=== PATIENT | female | born 1975 | race Hispanic/Latino ===

== ENCOUNTER → 2019-04-06 | Day surgery (SDC) | payer MEDICARE ==
[2019-04-04 13:16] LABS: BASOPHILS % 0.4 % (0.0-1.0); EOSINOPHILS # (AUTO) 0.1 (0.0-0.4); EOSINOPHILS % 1.4 % (0.0-6.0); HEMATOCRIT 38.5 % (34.2-44.1); HEMOGLOBIN 12.6 g/dL (12.0-16.0); LYMPHOCYTES # (AUTO) 2.6 (1.0-3.2); MEAN CORPUSCULAR HEMOGLOBIN 28.1 pg (28-32); MEAN CORPUSCULAR HGB CONC 32.7 g/dL (31-35); MEAN CORPUSCULAR VOLUME 85.9 fL (81-99); MONOCYTES # (AUTO) 0.5 (0.2-0.8); MONOCYTES % 5.5 % (4.4-11.3); NEUTROPHILS # (AUTO) 5.3 (2.1-6.9); NEUTROPHILS % 62.3 % (38.7-80.0); PLATELET COUNT 234 x10e3/uL (140-360); RED BLOOD COUNT 4.48 x10e6/uL (3.6-5.1); RED CELL DISTRIBUTION WIDTH 15.2 % (11.7-14.4)
[2019-04-04 13:37] LABS: BLOOD UREA NITROGEN 9 mg/dL (7-26); BUN/CREATININE RATIO 13 (6-25); CALCIUM 8.8 mg/dL (8.4-10.2); CARBON DIOXIDE 27 mmol/L (22-29); CHLORIDE 106 mmol/L (98-107); CREATININE, SERUM 0.67 mg/dL (0.57-1.11); EST GLOMERULAR FILTRATION RATE > 60 ML/MIN (60-); GLUCOSE 86 mg/dL (74-118); SODIUM 139 mmol/L (136-145)
[~2019-04-06] MED LIST: BUPIVACAINE 0.25%/EPI 30ML SDV INJ ONE; CLONAZEPAM0.5 MG PO; DEXAMETHASONE SOD PHOS INJ 4 MG/ML VIAL ONE; FENTANYL CITRATE/PF 100MCG/2 ML INJ ONE; HYDROMORPHONE 2MG/ML 2 MG/ML ML ONE; LATUDA40 MG PO; LIDOCAINE HCL 1% LOCAL INJ 20 ML VIAL ONE; LIDOCAINE HCL 2% LOCAL INJ 5 ML SDV VIAL INJ ONE; MIDAZOLAM HCL 2 MG/2 ML VIAL ONE; ONDANSETRON HCL INJ 2MG/ML 2ML 2 MG/ML VIAL ONE; PROPOFOL IV EMULSION 10 MG/ML 20 ML VIAL ONE; QUETIAPINE FUM100 MG PO; SEVOFLURANE INHAL SOLN 250 ML PEN BTL ONE
--- OUTSIDE RECORDS SUMMARY | 2019-04-06 08:59 | XMS REPORT | Summary of Care ---
Author Author [facility] Organization [facility] Address Unknown Phone Unavailable Encounter ADEBAYO Spencer(FLORECITA) [id number] Date(s): 12/23/18 - 12/24/18 [facility] [address] [place] [address]- Discharge Disposition: Other Healthcare Facility Attending Physician: Keith Andre DO Vital Signs 1 2 3 Most recent to oldest [Reference Range]: 170.18 cm (12/23/18 11:41 AM) Height 98.5 DegF (12/24/18 2:40 PM) 98.4 DegF (12/24/18 10:35 AM) 98.4 DegF (12/24/18 6:25 AM) Temperature Oral [96.4-99.1 DegF] 100/55 mmHg (12/24/18 4:25 PM) 112/71 mmHg (12/24/18 2:40 PM) 109/67 mmHg (12/24/18 10:35 AM) Blood Pressure [90-140/60-90 mmHg] 18 BRMIN (12/24/18 4:25 PM) 20 BRMIN (12/24/18 2:40 PM) 18 BRMIN (12/24/18 10:35 AM) Respiratory Rate [14-20 BRMIN] 100 bpm (12/24/18 4:25 PM) 97 bpm (12/24/18 2:40 PM) 87 bpm (12/24/18 12:48 AM) Peripheral Pulse Rate [60-100 bpm] 81.818 kg (12/23/18 11:41 AM) Weight 28.25 m2 (12/23/18 11:41 AM) Body Mass Index Problem List Condition Effective Dates Status Health Status Informant Back pain(Confirmed) Active Drug Active abuse(Confirmed) Weakness(Confirmed) Active Allergies, Adverse Reactions, Alerts Substance Reaction Severity Status penicillins Active Ultram Active Medications acetaminophen-hydrocodone 325 mg-5 mg oral tablet 1 tab, Route: PO, Drug Form: TAB, Dosing Weight 81.818, kg, ONCE, STAT, Start da te: 12/23/18 17:55:00 ACCOUNT MANAGEMENT SPECIALIST, Stop date: 12/23/18 17:55:00 ACCOUNT MANAGEMENT SPECIALIST Notes: (Same as: Lefor 325/5) Do not exceed 4gm/day of acetaminophen. Start Date: 12/23/18 Stop Date: 12/23/18 Status: Completed Al hydroxide/Mg hydroxide/simethicone 30 mL, Route: PO, Drug Form: SUSP, ONCE, Start date: 12/23/18 18:08:00 ACCOUNT MANAGEMENT SPECIALIST, Stop date: 12/23/18 18:08:00 ACCOUNT MANAGEMENT SPECIALIST Notes: (aluminum hydroxide-magnesium hyd-simethicone 444-774-37fm/5ml 30 ml ud S US) Start Date: 12/23/18 Stop Date: 12/23/18 Status: Completed aspirin 325 mg, 1 tab, Route: PO, Drug form: TAB, ONCE, Dosing Weight 81.818, kg, Priori ty: STAT, Start date: 12/23/18 18:03:00 ACCOUNT MANAGEMENT SPECIALIST, Stop date: 12/23/18 18:03:00 ACCOUNT MANAGEMENT SPECIALIST Notes: Take with food. Start Date: 12/23/18 Stop Date: 12/23/18 Status: Completed famotidine 20 mg, 2 mL, Route: IVP, Drug form: INJ, ONCE, Dosing Weight 81.818, kg, Priorit y: STAT, Start date: 12/23/18 18:03:00 ACCOUNT MANAGEMENT SPECIALIST, Stop date: 12/23/18 18:03:00 ACCOUNT MANAGEMENT SPECIALIST Notes: (Same as: Pepcid)Can be dilute in 5-10cc NS IVP: Slow IV push over at le ast 2 minutes. Start Date: 12/23/18 Stop Date: 12/23/18 Status: Completed GI cocktail (aluminum hydroxide/magnesium hydroxide/lidocaine/simethicone) 30 mL, Route: PO, Dosing Weight 81.818, kg, ONCE, STAT, Start date: 12/23/18 18: 03:00 ACCOUNT MANAGEMENT SPECIALIST, Stop date: 12/23/18 18:03:00 ACCOUNT MANAGEMENT SPECIALIST Start Date: 12/23/18 Stop Date: 12/23/18 Status: Discontinued LORazepam 1 mg, 0.5 mL, Route: IVP, Drug form: INJ, ONCE, Dosing Weight 81.818, kg, Priori ty: STAT, Start date: 12/24/18 12:31:00 CDT, Stop date: 12/24/18 12:31:00 CDT Notes: (Same as: Ativan) Start Date: 12/24/18 Stop Date: 12/24/18 Status: Completed ondansetron 4 mg, 2 mL, Route: IVP, Drug form: INJ, ONCE, Dosing Weight 81.818, kg, Priority : STAT, Start date: 12/23/18 18:03:00 ACCOUNT MANAGEMENT SPECIALIST, Stop date: 12/23/18 18:03:00 ACCOUNT MANAGEMENT SPECIALIST Notes: (Same as: Sangeetha) MEDICATION WASTE Product Size: 4 mgProduct Was maryam: ___ mg Start Date: 12/23/18 Stop Date: 12/23/18 Status: Completed Results ELECTROLYTES Most recent to 1 oldest [Reference Range]: Sodium Lvl [135-145 140 mEq/L mEq/L] (12/23/18 1:33 PM) Potassium Lvl 4.2 mEq/L [3.5-5.1 mEq/L] (12/23/18 1:33 PM) Chloride Lvl [95-109 108 mEq/L mEq/L] (12/23/18 1:33 PM) CO2 [24-32 mEq/L] 30 mEq/L (12/23/18 1:33 PM) AGAP [10.0-20.0 6.2 mEq/L mEq/L] *LOW* (12/23/18 1:33 PM) CHEM PANEL Most recent to 1 oldest [Reference Range]: Creatinine Lvl 0.70 mg/dL [0.50-1.40 mg/dL] (12/23/18 1:33 PM) eGFR 106 mL/min/1.73m2 1 *NA* (12/23/18 1:33 PM) BUN [7-22 mg/dL] 12 mg/dL (12/23/18 1:33 PM) B/C Ratio [6-25] 17 (12/23/18 1:33 PM) Glucose Lvl [70-99 83 mg/dL mg/dL] (12/23/18 1:33 PM) Total Protein 6.6 g/dL [6.4-8.4 g/dL] (12/23/18 1:33 PM) Albumin Lvl [3.5-5.0 3.3 g/dL g/dL] *LOW* (12/23/18 1:33 PM) Globulin [2.7-4.2 3.3 g/dL g/dL] (12/23/18 1:33 PM) A/G Ratio [0.7-1.6] 1.0 (12/23/18 1:33 PM) Calcium Lvl 8.4 mg/dL [8.5-10.5 mg/dL] *LOW* (12/23/18 1:33 PM) ALT [0-65 unit/L] 21 unit/L (12/23/18 1:33 PM) AST [0-37 unit/L] 14 unit/L (12/23/18 1:33 PM) Alk Phos [39-136 65 unit/L unit/L] (12/23/18 1:33 PM) Bili Total [0.2-1.3 0.2 mg/dL mg/dL] (12/23/18 1:33 PM) 1Result Comment: The eGFR is calculated using the CKD-EPI formula. In most young, healthy individuals the eGFR will be >90 mL/min/1.73m2. The eGFR declines with age. An eGFR of 60-89 may be normal in some populations, particularly the elderly, for whom the CKD-EPI formula has not been extensively validated. Use of the eGFR is not recommended in the following populations: Individuals with unstable creatinine concentrations, including patients and those with serious co-morbid conditions. Patients with extremes in muscle mass or diet. The data above are obtained from the National Kidney Disease Education Program ( NKDEP) which additionally recommends that when the eGFR is used in patients with extremes of body mass index for purposes of drug dosing, the eGFR should be mul tiplied by the estimated BMI. CARDIAC ENZYMES Most recent to 1 oldest [Reference Range]: Troponin-I <0.02 ng/mL [0.00-0.40 ng/mL] (12/23/18 1:33 PM) DRUG SCREEN Most recent to 1 oldest [Reference Range]: U Amph Scr Positive [Negative] *ABN* (12/23/18 1:33 PM) U Shannon Scr Negative [Negative] *NA* (12/23/18 1:33 PM) U Benzodiaz Scr Negative [Negative] *NA* (12/23/18 1:33 PM) U Cannab Scr Negative [Negative] *NA* (12/23/18 1:33 PM) U Cocaine Scr Negative [Negative] *NA* (12/23/18 1:33 PM) U Opiate Scr Negative [Negative] *NA* (12/23/18 1:33 PM) U Phencyclidine Scr Negative [Negative] *NA* (12/23/18 1:33 PM) UDS Note See Note (12/23/18 1:33 PM) TOXICOLOGY Most recent to 1 oldest [Reference Range]: Acetaminoph Lvl <2 [10-20] (12/23/18 7:36 PM) Salicylate Lvl <1.7 mg/dL [0.0-30.0 mg/dL] (12/23/18 7:36 PM) Etoh (%) <.003 % *NA* (12/23/18 7:36 PM) Ethanol Lvl <3 mg/dL *NA* (12/23/18 7:36 PM) URINE CHEM Most recent to 1 oldest [Reference Range]: U Preg [Negative] Negative (12/23/18 1:33 PM) URINE AND STOOL Most recent to 1 oldest [Reference Range]: UA Turbidity [Clear] Slight *ABN* (12/23/18 1:33 PM) UA Color Juanita *NA* (12/23/18 1:33 PM) UA pH [5.0-8.0] 6.0 (12/23/18 1:33 PM) UA Spec Grav 1.014 [<=1.030] (12/23/18 1:33 PM) UA Glucose Negative [Negative] *NA* (12/23/18 1:33 PM) UA Blood [Negative] Negative (12/23/18 1:33 PM) UA Ketones Negative [Negative] *NA* (12/23/18 1:33 PM) UA Protein Negative [Negative] (12/23/18 1:33 PM) UA Urobilinogen <=1.0 mg/dL [0.1-1.0 mg/dL] *NA* (12/23/18 1:33 PM) UA Bili [Negative] Negative *NA* (12/23/18 1:33 PM) UA Leuk Est Large [Negative] *ABN* (12/23/18 1:33 PM) UA Nitrite Negative [Negative] (12/23/18 1:33 PM) UA WBC [0-5 /HPF] 2 /HPF (12/23/18 1:33 PM) UA RBC [0-2 /HPF] 2 /HPF (12/23/18 1:33 PM) UA Bacteria [None Occasional /HPF Seen /HPF] *NA* (12/23/18 1:33 PM) UA Sq Epi [Few /LPF] Moderate /LPF *ABN* (12/23/18 1:33 PM) UA Hyal Cast [0-2 1 /LPF /LPF] (12/23/18 1:33 PM) UA Mucus [None Seen Few /LPF /LPF] *NA* (12/23/18 1:33 PM) HEMATOLOGY Most recent to 1 oldest [Reference Range]: WBC [3.7-10.4 K/CMM] 6.4 K/CMM (12/23/18 1:33 PM) RBC [4.20-5.40 4.34 M/CMM M/CMM] (12/23/18 1:33 PM) Hgb [12.0-16.0 g/dL] 11.6 g/dL *LOW* (12/23/18 1:33 PM) Hct [36.0-48.0 %] 35.8 % *LOW* (12/23/18 1:33 PM) MCV [80.0-98.0 fL] 82.5 fL (12/23/18 1:33 PM) MCH [27.0-31.0 pg] 26.7 pg *LOW* (12/23/18 1:33 PM) MCHC [32.0-36.0 32.4 g/dL g/dL] (12/23/18 1:33 PM) RDW [11.5-14.5 %] 15.3 % *HI* (12/23/18 1:33 PM) MPV [7.4-10.4 fL] 9.3 fL (12/23/18 1:33 PM) Platelet [133-450 331 K/CMM K/CMM] (12/23/18 1:33 PM) Segs [45.0-75.0 %] 62.3 % (12/23/18 1:33 PM) Lymphocytes 31.8 % [20.0-40.0 %] (12/23/18 1:33 PM) Monocytes [2.0-12.0 4.1 % %] (12/23/18 1:33 PM) Eosinophils [0.0-4.0 1.3 % %] (12/23/18 1:33 PM) Basophils [0.0-1.0 0.5 % %] (12/23/18 1:33 PM) Neutrophils # 4.0 K/CMM [1.5-8.1 K/CMM] (12/23/18 1:33 PM) Lymphocytes # 2.0 K/CMM [1.0-5.5 K/CMM] (12/23/18 1:33 PM) Monocytes # [0.0-0.8 0.3 K/CMM K/CMM] (12/23/18 1:33 PM) Eosinophils # 0.1 K/CMM [0.0-0.5 K/CMM] (12/23/18 1:33 PM) Immunizations No data available for this section Procedures No data available for this section Social History Social History Type Response Smoking Status Unknown if ever smoked; Previous treatment: None; Exposure to Tobacco Smoke None; Cigarette Smoking Last 365 Days No; Reg Smoking Cessation Counseling No entered on: 12/23/18 Assessment and Plan No data available for this section
--- OUTSIDE RECORDS SUMMARY | 2019-04-06 08:59 | XMS REPORT | CCD ---
Author Author Auto Generated Organization [facility] Address Unknown Phone Unavailable Care Team Providers Care Stock Car Driver Name Role Phone Orly Schroeder CP Brandon Monroe CP Unavailable Lacy, Enedina CP Unavailable Roxanne Olivarez CP Unavailable MarkoSuman condon CP Unavailable Violet Garber CP Unavailable Chevy Bullard CP Unavailable Samson Feldman CP Unavailable Logan Millan CP [phone] Samantha Mac CP [phone] Evan Jackson CP [phone] Salima Melchor CP Unavailable PCP, Pt doesnt Remember Remember CP Unavailable Karly Rossi CP Unavailable Bakari Garcia CP Dev Girard CP Unavailable Ericka Smith CP Unavailable Allergies, Adverse Reactions, Alerts Substance Reaction Status NKDA Ultram?? Canceled penicillins ?? Active Ultram ?? Active Problem List Condition Effective Dates Status Back pain ?? Active Drug abuse ?? Active Weakness ?? Active Vital Signs Most recent to oldest [Reference Range]: 1 2 Height 167.64 cm (06/20/2011 00:12:00) ? Temperature Oral [96.4-99.1 DegF] 98.3 DegF (06/20/2011 02:27:00) ?? 98.4 DegF (06/20/2011 00:12:00) ?? Systolic Blood Pressure [90-140 mmHg] 131 mmHg (06/20/2011 02:27:00) ?? 128 mmHg (06/20/2011 00:12:00) ?? Diastolic Blood Pressure [60-90 mmHg] 78 mmHg (06/20/2011 02:27:00) ?? 88 mmHg (06/20/2011 00:12:00) ?? Respiratory Rate [14-20 BRMIN] 16 BRMIN (06/20/2011 02:27:00) ?? 18 BRMIN (06/20/2011 00:12:00) ?? Peripheral Pulse Rate [60-100 bpm] 81 bpm (06/20/2011 02:27:00) ?? 84 bpm (06/20/2011 00:12:00) ?? Weight 63.636 kg (06/20/2011 00:12:00) ?
--- OUTSIDE RECORDS SUMMARY | 2019-04-06 08:59 | XMS REPORT | CCD ---
Author Author Auto Generated Organization [facility] Address Unknown Phone Unavailable Care Team Providers Care Electric Sign Wirer Name Role Phone Orly Schroeder CP Brandon Monroe CP Unavailable Lacy, Enedina CP Unavailable Roxanne Olivarez CP Unavailable MarkoSuman condon CP Unavailable Violet Garber CP Unavailable Chevy Bullard CP Unavailable Samson Feldman CP Unavailable Logan Millan CP [phone] Samantha Mac CP [phone] Evan Jackson CP [phone] Salima Melchor CP Unavailable PCP, Pt doesnt [...]
--- OUTSIDE RECORDS SUMMARY | 2019-04-06 08:59 | XMS REPORT | CCD ---
Author Author Auto Generated Organization [facility] Address Unknown Phone Unavailable Care Team Providers Care Netsuite Developer Name Role Phone John Louie CP [phone] Orly Schroeder CP Dayron Brunner CP Unavailable Brandon Monroe CP Unavailable Lacy, Enedina CP Unavailable Dev Caballero CP [phone] Charly Olvera CP Unavailable GutierrezEvaristo CP [phone] Sharon Cooper CP Unavailable Roxanne Olivarez CP Unavailable MarkoSuman CP Unavailable Violet Garber CP Unavailable BullardChevy bundy CP Unavailable GutierrezMarco CP Unavailable SYSTEM, SYSTEM CP Unavailable Samantha Mac CP [phone] Zach Luevano CP Unavailable Arpit Fortune CP Unavailable MelchorSalima CP Unavailable PCP, Patient Refused CP Unavailable Maureen Gutierrez CP Unavailable Karly Rossi CP Unavailable Bakari Garcia CP Dev Girard CP Unavailable Margot Tobias CP Unavailable Fredis Gutierrez CP Tierney Metzger CP Unavailable Ericka Smith CP Unavailable Cesar Christina CP Unavailable Allergies, Adverse Reactions, Alerts Substance Reaction Status NKDA Ultram?? Canceled penicillins ?? Active Ultram ?? Active Problem List Condition Effective Dates Status Back pain ?? Active Drug abuse ?? Active Weakness ?? Active Medications Medication Instructions Start Date End Date Status aspirin 325 mg 1 tab, PO, Daily, 90 tab, 06/17/2011 ?? Ordered tablet Substitution Allowed, TAB Saline Flush 0.9% 5 ml, Route: IVP, Drug Form: INJ, 06/19/2011 06/20/2011 Discontinued PRN, PRN Line Flush, Start date: 06/19/11 22:28:00, Duration: 30 day, Stop date: 07/19/11 22:27:00 ibuprofen 800 mg, Route: PO, Drug form: TAB, 06/19/2011 06/19/2011 Completed ONCE, Priority: STAT, Start date: 06/19/11 22:42:00, Stop date: 06/19/11 22:42:00 Hildamarcet oral 1 tab, PO, Q4H, PRN, for pain, 06/19/2011 ?? Ordered tablet Substitution Allowed, Maintenance, TAB Vital Signs Most recent to oldest [Reference Range]: 1 2 Height 167.64 cm (06/19/2011 21:26:00) ? Temperature Oral [96.4-99.1 DegF] 97.8 DegF (06/19/2011 21:26:00) ? Systolic Blood Pressure [90-140 mmHg] 138 mmHg (06/19/2011 22:52:00) ?? 124 mmHg (06/19/2011 21:26:00) ?? Diastolic Blood Pressure [60-90 mmHg] 89 mmHg (06/19/2011 22:52:00) ?? 92 mmHg *HI* (06/19/2011 21:26:00) ?? Respiratory Rate [14-20 BRMIN] 16 BRMIN (06/19/2011 22:52:00) ?? 18 BRMIN (06/19/2011 21:26:00) ?? Peripheral Pulse Rate [60-100 bpm] 85 bpm (06/19/2011 22:52:00) ?? 87 bpm (06/19/2011 21:26:00) ?? Weight 68.182 kg (06/19/2011 21:26:00) ? Results URINALYSIS Most recent to oldest [Reference Range]: 1 UA Turbidity [>Clear] Clear (06/19/2011 22:09:00) ?? UA Color [>Yellow] Yellow *NA* (06/19/2011 22:09:00) ?? UA pH [5.0-8.0] 6.0 (06/19/2011 22:09:00) ?? UA Spec Grav [<<=1.030] 1.010 (06/19/2011 22:09:00) ?? UA Glucose [>Negative] Negative (06/19/2011 22:09:00) ?? UA Blood [>Negative] Trace *ABN* (06/19/2011 22:09:00) ?? UA Ketones [>Negative] Negative *NA* (06/19/2011 22:09:00) ?? UA Protein [>Negative] Negative (06/19/2011 22:09:00) ?? UA Urobilinogen [0.1-1.0 EU/dL] 0.2 EU/dL (06/19/2011 22:09:00) ?? UA Bili [>Negative] Negative *NA* (06/19/2011 22:09:00) ?? UA Leuk Est [>Negative] Small *ABN* (06/19/2011 22:09:00) ?? UA Nitrite [>Negative] Negative (06/19/2011 22:09:00) ?? UA WBC [>None Seen /HPF] 3-5 /HPF (06/19/2011 22:09:00) ?? UA RBC [>0-2 /HPF] 3-5 /HPF *ABN* (06/19/2011 22:09:00) ?? UA Bacteria [>None Seen /HPF] Few /HPF (06/19/2011 22:09:00) ?? UA Sq Epi [>Few /LPF] Few /LPF (06/19/2011 22:09:00) ?? Micro? Performed (06/19/2011 22:09:00) ?? CHEMISTRY Most recent to oldest [Reference Range]: 1 Sodium Lvl [135-145 mEq/L] 139 mEq/L (06/19/2011 22:09:00) ?? Potassium Lvl [3.5-5.1 mEq/L] 3.7 mEq/L (06/19/2011 22:09:00) ?? Chloride Lvl [95-109 mEq/L] 102 mEq/L (06/19/2011 22:09:00) ?? CO2 [24-32 mEq/L] 28 mEq/L (06/19/2011 22:09:00) ?? AGAP [10.0-20.0 mEq/L] 12.7 mEq/L (06/19/2011 22:09:) ?? Creatinine Lvl [0.5-1.4 mg/dL] 0.7 mg/dL (06/19/2011 22:09:00) ?? BUN [7-22 mg/dL] 9 mg/dL (06/19/2011 22:09:00) ?? B/C Ratio [6-25] 13 (06/19/2011 22:09:00) ?? Glucose Lvl 77 mg/dL 1 *NA* (06/19/2011:09:00) ?? Total Protein [6.4-8.4 g/dL] 6.9 g/dL (06/19/2011 22:09:00) ?? Albumin Lvl [3.5-5.0 g/dL] 4.0 g/dL (06/19/2011:09:00) ?? Globulin [2.0-4.0 g/dL] 2.9 g/dL (06/19/2011:09:00) ?? A/G Ratio [0.7-1.6] 1.4 (06/19/2011 22:09:00) ?? Calcium Lvl [8.5-10.5 mg/dL] 8.8 mg/dL (06/19/2011 22:09:00) ?? ALT [0-65 U/L] 23 U/L (06/19/2011:09:00) ?? AST [0-37 U/L] 14 U/L (06/19/2011 22:09:00) ?? Alk Phos [39-136 U/L] 57 U/L (06/19/2011:09:00) ?? Bili Total [0.2-1.3 mg/dL] 0.2 mg/dL (06/19/2011 22:09:00) ?? Total CK [12-191 U/L] 81 U/L (06/19/2011:09:00) ?? CK MB [0.5-3.6 ng/mL] <0.5 ng/mL (06/19/2011 22:09:00) ?? CK MB Index [0.0-2.5] <0.6 (06/19/2011:09:00) ?? Troponin-I [0.00-0.40 ng/mL] <0.02 ng/mL (06/19/2011 22:09:00) ?? U Amph Scr [>Negative] Negative *NA* (06/19/2011 22:09:00) ?? U Shannon Scr [>Negative] Negative *NA* (06/19/2011 22:09:00) ?? U Benzodia Scr [>Negative] Negative *NA* (06/19/2011 22:09:00) ?? U Cocaine Scr [>Negative] Negative *NA* (06/19/2011 22:09:00) ?? U Opiate Scr [>Negative] Positive *ABN* (06/19/2011 22:09:00) ?? U Phencyc Scr [>Negative] Negative *NA* (06/19/2011 22:09:00) ?? U Cannab Scr [>Negative] Positive *ABN* (06/19/2011 22:09:00) ?? UDS Note See Note 2 (06/19/2011 22:09:00) ?? U Preg [>Negative] Negative (06/19/2011 22:09:00) ?? 1Interpretive Data: Reference Ranges : 0 - 7 days : 41 - 90 mg/dL7 days - 150 yrs : 70 - 99 mg/dL (fasting), based on the clinical recommendations of the [place] [employer]. 2Interpretive Data: Drugs reported as positive have not been confirmed by a second method and should be used for medical purposes only. To orderconfirmation, contact laboratory. note: Below are cut-off concentrations for all urine drugs of abuse performed in the laboratory. Some drugs listed in the table may not be included in this panel.Description Cut-off concentration Amphetamine 1000 ng/mLBarbiturates 200 ng/mLBenzodiazepines 300 ng/mLCocaine metabolites 300 ng/mLOpiates 300 ng/mLPhencyclidine 25 ng/mLPropoxyphene 300 ng/mLMarijuana metabolites 50 ng/mLMethadone 300 ng/mLUrine alcohol 20 mg/dL HEMATOLOGY Most recent to oldest [Reference Range]: 1 WBC [3.7-10.4 K/CMM] 6.0 K/CMM (06/19/2011 22:09:00) ?? RBC [4.20-5.40 M/CMM] 3.62 M/CMM *LOW* (06/19/2011 22:09:00) ?? Hgb [12.0-16.0 g/dL] 11.2 g/dL *LOW* (06/19/2011 22:09:00) ?? Hct [36.0-48.0 %] 32.8 % *LOW* (06/19/2011 22:09:00) ?? MCV [81.0-99.0 fL] 90.7 fL (06/19/2011:09:00) ?? MCH [27.0-31.0 pg] 31.0 pg (06/19/2011 22:09:00) ?? MCHC [32.0-36.0 g/dL] 34.2 g/dL (06/19/2011:09:00) ?? RDW [11.5-14.5 %] 14.4 % (06/19/2011 22:09:00) ?? Platelet [133-450 K/CMM] 259 K/CMM (06/19/2011:09:00) ?? MPV [7.4-10.4 fL] 8.4 fL (06/19/2011 22:09:00) ?? Segs [45.0-75.0 %] 42.8 % *LOW* (06/19/2011:09:) ?? Lymphocytes [20.0-40.0 %] 48.0 % *HI* (06/19/2011 22:09:00) ?? Monocytes [2.0-12.0 %] 7.4 % (06/19/2011 22:09:00) ?? Eosinophils [0.0-4.0 %] 1.4 % (06/19/2011 22:09:00) ?? Basophils [0.0-1.0 %] 0.4 % (06/19/2011 22:09:00) ?? Segs-Bands # [1.5-8.1 K/CMM] 2.6 K/CMM (06/19/2011 22:09:00) ?? Lymphocytes # [1.0-5.5 K/CMM] 2.9 K/CMM (06/19/2011 22:09:00) ?? Monocytes # [0.0-0.8 K/CMM] 0.4 K/CMM (06/19/2011 22:09:00) ?? Eosinophils # [0.0-0.5 K/CMM] 0.1 K/CMM (06/19/2011 22:09:00) ?? Basophils # [0.0-0.2 K/CMM] 0.0 K/CMM (06/19/2011 22:09:00) ?? PT [12.0-14.7 seconds] 11.9 seconds *LOW* (06/19/2011 22:09:00) ?? INR [0.85-1.17] 0.87 3 (06/19/2011 22:09:00) ?? PTT [22.9-35.8 seconds] 30.6 seconds 4 (06/19/2011 22:09:00) ?? 3Interpretive Data: RECOMMENDED RANGES FOR PROTIME INR: 2.0-3.0 for most medical and surgical thromboembolic states. 2.5-3.5 for artificial heart valves and recurrent embolism.INR SHOULD BE USED ONLY FOR PATIENTS ON STABLE ANTICOAGULANT THERAPY. 4Interpretive Data: Heparin Therapeutic Range: 57 - 92 Seconds Microbiology Reports PROCEDURE:Culture: Urine STATUS: Auth (Verified) BODY SITE: ?? COLLECTED DATE/TIME: 06/19/2011 22:09:00 SOURCE: Urine, Clean Catch FREE TEXT SOURCE: ?? FINAL REPORTS Final Report 3 Or More Organisms Present. Gram Positive Organisms Only. [place] Count Not Sign ificant PRELIMINARY REPORTS Preliminary Report No Growth; Holding
--- OUTSIDE RECORDS SUMMARY | 2019-04-06 08:59 | XMS REPORT | Continuity of Care Document ---
Author Author [facility] Interface Address Unknown Phone Unavailable Problems Problem Status Onset Date Classification Date Reported Comments Source CP Active 12/23/2018 [facility] section Active 11/01/2016 Problem 11/07/2016 [facility] CHILDBIRTH Active 09/20/2016 [facility] Discharge Diagnosis: Anxiety reaction 02/19/2015 02/22/2015 [facility] Discharge Diagnosis: Acute hyperventilation syndrome 02/19/2015 02/22/2015 [facility] TINGLING HANDS Active 02/19/2015 [facility] delivery - delivered Active 09/12/2013 Problem 11/07/2016 [facility] care Active 09/12/2013 Problem 11/07/2016 [facility] LABOR Active 08/22/2013 [facility] INDUCTION/40WKS Active 08/22/2013 [facility] VAGINAL DELIVERY Active 08/22/2013 [facility] Resolved 12/06/2012 Problem 11/07/2016 [facility] ABDOMINAL PAIN Active 03/29/2012 [facility] DENTAL PAIN Active 08/21/2011 [facility] HEADACHE Active 06/20/2011 [facility] LEFT SIDE WEAKNESS/NUMBNESS Active 06/19/2011 [facility] CHEST PAIN Active 03/15/2011 [facility] TIA Active 02/19/2011 [facility] Back pain Active Problem 03/31/2012 [facility] Drug abuse Active Problem 03/31/2012 [facility] Weakness Active Problem 03/31/2012 [facility] Back pain Active Problem 12/26/2018 [facility] Drug abuse Active Problem 12/26/2018 [facility] Weakness Active Problem 12/26/2018 [facility] Headaches, cluster Resolved Problem 11/07/2016 [facility] Fall<sup>1</sup> Resolved Problem 11/07/201608/08 on R gluteal area no bruising/swelling noted [facility] Previous section Resolved Problem 11/07/2016 [facility] Polyhydramnios in third trimester Active Problem 11/07/2016 [facility] NORMAL DELIVERY Active [facility] RELATED CONDITIONS, UNSP, UNSP Active [facility] Medications Medication Details Route Status Patient Instructions Ordering Provider Order Date Source Lorazepam 1 mg, 0.5 mL, Route: IVP, Drug form: INJ, ONCE, Dosing Weight 81.818, kg, Priority: STAT, Start date: 12/24/18 12:31:00 CDT, Stop date: 12/24/18 12:31:00 CDTNotes: (Same as: Ativan) Inactive 12/24/2018 [facility] Al hydroxide/Mg hydroxide/simethicone 30 mL, Route: PO, Drug Form: SUSP, ONCE, Start date: 12/23/18 18:08:00 NET [employer] DEVELOPER, Stop date: 12/23/18 18:08:00 CSTNotes: (aluminum hydroxide-magnesium hyd-simethicone [phone]/5ml 30 ml ud [place]) Inactive 12/24/2018 [facility] Famotidine 20 mg, 2 mL, Route: IVP, Drug form: INJ, ONCE, Dosing Weight 81.818, kg, Priority: STAT, Start date: 12/23/18 18:03:00 [employer] DEVELOPER, Stop date: 12/23/18 18:03:00 CSTNotes: (Same as: Pepcid) Can be dilute in 5-10cc NS IVP: Slow IV push over at least 2 minutes. Inactive 12/24/2018 [facility] Ondansetron 4 mg, 2 mL, Route: IVP, Drug form: INJ, ONCE, Dosing Weight 81.818, kg, Priority: STAT, Start date: 12/23/18 18:03:00 NET [employer] DEVELOPER, Stop date: 12/23/18 18:03:00 CSTNotes: (Same as: Zofran) MEDICATION WASTE Product Size: 4 mg Product Wasted: ___ mg Inactive 12/24/2018 [facility] GI cocktail (aluminum hydroxide/magnesium hydroxide/lidocaine/simethicone) 30 mL, Route: PO, Dosing Weight 81.818, kg, ONCE, STAT, Start date: 12/23/18 18:03:00 NET [employer] DEVELOPER, Stop date: 12/23/18 18:03:00 [employer] DEVELOPER Inactive 12/24/2018 [facility] Aspirin 325 mg, 1 tab, Route: PO, Drug form: TAB, ONCE, Dosing Weight 81.818, kg, Priority: STAT, Start date: 12/23/18 18:03:00 [employer] DEVELOPER, Stop date: 12/23/18 18:03:00 CSTNotes: Take with food. Inactive 12/24/2018 [facility] Acetaminophen 325 MG / Hydrocodone Bitartrate 5 MG Oral Tablet 1 tab, Route: PO, Drug Form: TAB, Dosing Weight 81.818, kg, ONCE, STAT, Start date: 12/23/18 17:55:00 NET [employer] DEVELOPER, Stop date: 12/23/18 17:55:00 CSTNotes: (Same as: [place] 325/5) Do not exceed 4gm/day of acetaminophen. Inactive 12/23/2018 [facility] Motrin 800 mg oral tablet 800 mg=1 tab, PO, Q8H, PRN Pain, Take with food, # 30 tab, 0 Refill(s) Inactive 11/04/2016 [facility] Ferrous fumarate 324 MG / Folic Acid 1 MG Oral Tablet [Hemocyte-F] See Instructions, tab PO twice a day, # 60 tab, 0 Refill(s) Active 11/04/2016 [facility] Docusate Sodium 100 MG Oral Capsule [Colace] 100 mg=1 cap, PO, BID, PRN Constipation, # 20 cap, 0 Refill(s) Active 11/04/2016 [facility] Acetaminophen 300 MG / Codeine Phosphate 15 MG Oral Tablet 1 tab, PO, Q4H, PRN Pain, # 24 tab, 0 Refill(s) Active 11/04/2016 [facility] Docusate Sodium 100 MG Oral Capsule [Colace] 100 mg, 1 cap, Route: PO, Drug form: CAP, BID, Dosing Weight 91.818, kg, PRN Constipation, Start date: 11/03/16 16:14:00 NET [employer] DEVELOPER, Duration: 30 day, Stop date: 12/03/16 16:13:00 CSTNotes: (Same as: Colace) (Do Not Crush) No Longer Active 11/03/2016 [facility] Tylenol 650 mg, 2 tab, Route: PO, Drug form: TAB, Q4H, Dosing Weight 91.818, kg, PRN Other -See Comment, Start date: 11/02/16 14:30:00 NET [employer] DEVELOPER, Duration: 30 day, Stop date: 12/02/16 14:29:00 CSTNotes: Do not exceed 4 gm/day. (Same as: Tylenol) No Longer Active 11/02/2016 [facility] Multivitamins oral tablet 1 tab, Route: PO, Drug Form: TAB, Dosing Weight 91.818, kg, Daily, Start date: 11/02/16 9:00:00 NET SQL DEVELOPER, Duration: 30 day, Stop date: 12/01/16 9:00:00 NET SQL DEVELOPER No Longer Active 11/02/2016 [facility] Saline Flush 0.9% 10 ml, Route: IVP, Drug Form: INJ, Dosing Weight 91.818, kg, Q12H, Start date: 11/01/16 21:00:00 NET SQL DEVELOPER, Duration: 30 day, Stop date: 12/01/16 9:00:00 CSTNotes: (Same as: BD Posiflush) No Longer Active 11/02/2016 [facility] ketOROLAC 30 mg/mL injectable solution 30 mg, 1 mL, Route: IM, Drug form: INJ, Q6H, Dosing Weight 91.818, kg, PRN Pain Score 4-6, Start date: 11/01/16 19:36:00 NET [employer] DEVELOPER, Duration: 2 day, Stop date: 11/03/16 19:35:00 CSTNotes: (Same as:Toradol) IV bolus must be given >15 seconds. Give IM administration slowly and deeply into the muscle. Not for use > 4 days MEDICATION WASTE Product Size: 30 mg Product Wasted: ___ mg No Longer Active 11/02/2016 [facility] ketOROLAC 30 mg/mL injectable solution 30 mg, 1 mL, Route: IM, Drug form: INJ, ONCE, Dosing Weight 91.818, kg, PRN Pain 4-6/Temp > 100.4 F, Start date: 11/01/16 16:21:00 NET [employer] DEVELOPER, Duration: 1 doses or times, Stop date: Limited # of timesNotes: (Same as:Toradol) IV bolus must be given >15 seconds. Give IM administration slowly and deeply into the muscle. Not for use > 4 days MEDICATION WASTE Product Size: 30 mg Product Wasted: ___ mg Inactive 11/01/2016 [facility] Ibuprofen 600 mg, 1 tab, Route: PO, Drug form: TAB, Q6H, Dosing Weight 91.818, kg, Start date: 11/01/16 15:00:00 NET SQL DEVELOPER, Duration: 30 day, Stop date: 12/01/16 9:00:00 CSTNotes: (Same as: Motrin) "Do Not Crush" Take with food. No Longer Active 11/01/2016 [facility] Acetaminophen 1,000 mg, 2 tab, Route: PO, Drug form: TAB, Q6H, Dosing Weight 91.818, kg, Priority: Routine, Start date: 11/01/16 14:30:00 NET SQL DEVELOPER, Duration: 24 hr, Stop date: 11/02/16 8:30:00 CSTNotes: Max acetaminophen 4000 mg/day (4 gm/day). (Same as: Tylenol Extra Strength) No Longer Active 11/01/2016 [facility] Ketorolac 30 mg, 1 mL, Route: IVP, Drug form: INJ, Q6H, Dosing Weight 91.818, kg, PRN Pain Score 4-6, Start date: 11/01/16 14:30:00 NET SQL DEVELOPER, Duration: 24 hr, Stop date: 11/02/16 14:29:00 CSTNotes: (Same as:Toradol) IV bolus must be given >15 seconds. Give IM administration slowly and deeply into the muscle. Not for use > 4 days MEDICATION WASTE Product Size: 30 mg Product Wasted: ___ mg Inactive 11/01/2016 [facility] 0.5 ML Bordetella pertussis filamentous hemagglutinin vaccine, inactivated 0.01 MG/ML / Bordetella pertussis fimbriae 2/3 vaccine, inactivated 0.01 MG/ML / Bordetella pertussis pertactin vaccine, inactivated 0.006 MG/ML / Bordetella pertussis toxoid vacci 0.5 mL, Route: IM, Drug Form: SUSP, Dosing Weight 91.818, kg, ONCALL, Start date: 11/01/16 11:00:00 NET SQL DEVELOPER, Duration: 1 doses or timesNotes: (Tdap ) For Adolecent and Adult use For IM Use. Same as: Adacel (Tdap) No Longer Active 11/01/2016 [facility] Saline Flush 0.9% 10 ml, Route: IVP, Drug Form: INJ, Dosing Weight 91.818, kg, PRN, PRN Line Flush, Start date: 11/01/16 10:21:00 NET SQL DEVELOPER, Duration: 30 day, Stop date: 12/01/16 10:20:00 CSTNotes: (Same as: BD Posiflush) No Longer Active 11/01/2016 [facility] Acetaminophen 325 MG / Hydrocodone Bitartrate 10 MG Oral Tablet 1 tab, Route: PO, Drug Form: TAB, Dosing Weight 91.818, kg, Q4H, PRN Pain Score 7-10, Start date: 11/01/16 10:21:00 NET SQL DEVELOPER, Duration: 30 day, Stop date: 12/01/16 10:20:00 CSTNotes: Do not exceed 4gm/day of acetaminophen. (Same as: [place] 325/10) No Longer Active 11/01/2016 [facility] Acetaminophen 325 MG / Hydrocodone Bitartrate 5 MG Oral Tablet 1 tab, Route: PO, Drug Form: TAB, Dosing Weight 91.818, kg, Q4H, PRN Pain Score 4-6, Start date: 11/01/16 10:21:00 NET SQL DEVELOPER, Duration: 30 day, Stop date: 12/01/16 10:20:00 CSTNotes: (Same as: [place] 325/5) Do not exceed 4gm/day of acetaminophen. No Longer Active 11/01/2016 [facility] Lactated Ringers 1,000 mL 1,000 mL, Rate: 100 ml/hr, Infuse over: 10 hr, Route: IV, Dosing Weight 91.818 kg, Total Volume: 1,000, Start date: 11/01/16 10:21:00 NET SQL DEVELOPER, Duration: 30 day, Stop date: 12/01/16 10:20:00 NET SQL DEVELOPER No Longer Active 11/01/2016 [facility] Bisacodyl 10 mg, 1 supp, Route: OR, Drug form: SUPP, PRN, Dosing Weight 91.818, kg, PRN Other -See Comment, Start date: 11/01/16 10:21:00 NET SQL DEVELOPER, Duration: 30 day, Stop date: 12/01/16 10:20:00 CSTNotes: (Same As: Dulcolax, Bisco-Lax) No Longer Active 11/01/2016 [facility] zolpidem 5 mg, 1 tab, Route: PO, Drug form: TAB, Bedtime, Dosing Weight 91.818, kg, PRN Insomnia, Start date: 11/01/16 10:21:00 NET SQL DEVELOPER, Duration: 30 day, Stop date: 12/01/16 10:20:00 CSTNotes: (Same As: Ambien) No Longer Active 11/01/2016 [facility] Simethicone 160 mg, 2 tab, Route: PO, Drug form: CHE[place]AB, Q8H, Dosing Weight 91.818, kg, PRN Gas, Start date: 11/01/16 10:21:00 NET SQL DEVELOPER, Duration: 30 day, Stop date: 12/01/16 10:20:00 CSTNotes: (Same as: Mylicon) No Longer Active 11/01/2016 [facility] Acetaminophen 650 mg, 2 tab, Route: PO, Drug form: TAB, Q4H, Dosing Weight 91.818, kg, PRN Other -See Comment, Start date: 11/01/16 10:21:00 NET SQL DEVELOPER, Duration: 30 day, Stop date: 12/01/16 10:20:00 CSTNotes: Do not exceed 4 gm/day. (Same as: Tylenol) Inactive 11/01/2016 [facility] lanolin topical cream 1 appl, Route: TOP, PRN, Drug form: OINT, PRN Other -See Comment, Start date: 11/01/16 10:21:00 NET SQL DEVELOPER, Duration: 30 day, Stop date: 12/01/16 10:20:00 CSTNotes: (Same as:Lanolin) No Longer Active 11/01/2016 [facility] oxytocin 30 units in LR 500 mL 30 unit 30 unit, 500 mL, Rate: 42 ml/hr, Infuse over: 11.9 hr, Dosing Weight 91.818, kg, Route: IV, Total Volume: 500 mL, Start date: 11/01/16 10:21:00 NET SQL DEVELOPER, Duration: 1 doses or times, Stop date: 11/01/16 22:14:00 NET SQL DEVELOPER, Replace Every: 11.9 hrNotes: Pitocin 30 units in LR 500 mL Inactive 11/01/2016 [facility] bupivacaine (ANES) Route: INTRATHECAL, Drug Form: INJ, ONCE, Stop date: 11/01/16 9:26:00 NET SQL DEVELOPER Inactive 11/01/2016 [facility] ePHEDrine (ANES) Route: IV, Drug form: INJ, ONCE, Stop date: 11/01/16 9:26:00 NET SQL DEVELOPER Inactive 11/01/2016 [facility] phenylephrine (ANES) Route: IV, Drug form: INJ, ONCE, Stop date: 11/01/16 9:26:00 NET SQL DEVELOPER Inactive 11/01/2016 [facility] morphine Sulfate (ANES) Route: INTRATHECAL, Drug form: SOLN, ONCE, Stop date: 11/01/16 9:26:00 NET SQL DEVELOPER Inactive 11/01/2016 [facility] acetaminophen (ANES) Route: IV, Drug form: INJ, ONCE, Stop date: 11/01/16 9:02:00 NET SQL DEVELOPER Inactive 11/01/2016 [facility] Naloxone 0.4 mg, 1 mL, Route: IVP, Drug form: INJ, ONCALL, Dosing Weight 91.818, kg, Start date: 11/01/16 9:00:00 NET SQL DEVELOPER, Duration: 24 hr, Stop date: 11/02/16 8:59:00 CSTNotes: Same as Narcan No Longer Active 11/01/2016 [facility] fentaNYL (ANES) Route: IV, Drug form: INJ, ONCE, Stop date: 11/01/16 8:58:00 NET SQL DEVELOPER Inactive 11/01/2016 [facility] ketOROLAC (ANES) IV, ONCE Inactive 11/01/2016 [facility] morphine Sulfate (ANES) Route: IV, Drug form: SOLN, ONCE, Stop date: 11/01/16 8:50:00 NET SQL DEVELOPER Inactive 11/01/2016 [facility] diphenhydrAMINE (ANES) Route: IV, Drug form: INJ, ONCE, Stop date: 11/01/16 8:50:00 NET SQL DEVELOPER Inactive 11/01/2016 [facility] ondansetron (ANES) Route: IV, Drug form: INJ, ONCE, Stop date: 11/01/16 8:48:00 NET SQL DEVELOPER Inactive 11/01/2016 [facility] Periactin 4 mg, 1 tab, Route: PO, Drug form: TAB, TID, Dosing Weight 91.818, kg, PRN Itching, Start date: 11/01/16 8:44:00 NET SQL DEVELOPER, Duration: 30 day, Stop date: 12/01/16 8:43:00 CSTNotes: (Same As: Periactin) No Longer Active 11/01/2016 [facility] Diphenhydramine 12.5 mg, 5 mL, Route: PO, Drug form: LIQ, Q6H, Dosing Weight 91.818, kg, PRN Itching, Start date: 11/01/16 8:44:00 NET SQL DEVELOPER, Duration: 30 day, Stop date: 12/01/16 8:43:00 CSTNotes: (Same as: Benadryl) No Longer Active 11/01/2016 [facility] Naloxone 0.1 mg, 0.25 mL, Route: SUB-Q, Drug form: INJ, Q6H, Dosing Weight 91.818, kg, PRN Itching, Start date: 11/01/16 8:44:00 NET SQL DEVELOPER, Duration: 24 hr, Stop date: 11/02/16 8:43:00 CSTNotes: Same as Narcan No Longer Active 11/01/2016 [facility] Ondansetron 4 mg, 2 mL, Route: IVP, Drug form: INJ, Q6H, Dosing Weight 91.818, kg, PRN Nausea & Vomiting, Start date: 11/01/16 8:44:00 NET SQL DEVELOPER, Duration: 24 hr, Stop date: 11/02/16 8:43:00 CSTNotes: (Same as: Zofran) MEDICATION WASTE Product Size: 4 mg Product Wasted: ___ mg No Longer Active 11/01/2016 [facility] Ondansetron 4 mg, 2 mL, Route: IVP, Drug form: INJ, ONCE, Dosing Weight 91.818, kg, PRN Nausea & Vomiting, Start date: 11/01/16 8:36:00 CSTNotes: (Same as: Zofran) MEDICATION WASTE Product Size: 4 mg Product Wasted: ___ mg Inactive 11/01/2016 [facility] Promethazine 6.25 mg, 0.25 mL, Route: IVPB, ONCE, Dosing Weight 91.818, kg, PRN Nausea & Vomiting, Start date: 11/01/16 8:36:00 CSTNotes: Do not give IV push. (Same as: Phenergan) Inactive 11/01/2016 [facility] Naloxone 0.4 mg, 1 mL, Route: IVP, Drug form: INJ, Q2MIN, Dosing Weight 91.818, kg, PRN Narcotic Reversal, Start date: 11/01/16 8:36:00 NET SQL DEVELOPER, Duration: 8 doses or times, Stop date: Limited # of timesNotes: Same as Narcan Inactive 11/01/2016 [facility] Flumazenil 0.2 mg, 2 mL, Route: IVP, Drug form: INJ, PRN, Dosing Weight 91.818, kg, PRN Benzodiazepine Reversal, Initial dose, Start date: 11/01/16 8:36:00 NET SQL DEVELOPER, Duration: 30 day, Stop date: 12/01/16 8:35:00 NET SQL DEVELOPER Notes: (Same as: Romazicon) Inactive 11/01/2016 [facility] Calcium Chloride 0.0014 MEQ/ML / Potassium Chloride 0.004 MEQ/ML / Sodium Chloride 0.103 MEQ/ML / Sodium Lactate 0.028 MEQ/ML Injectable Solution 1,000 mL, Rate: 125 ml/hr, Infuse over: 8 hr, Route: IV, Dosing Weight 91.818 kg, Total Volume: 1,000, Start date: 11/01/16 8:36:00 NET SQL DEVELOPER, Duration: 30 day, Stop date: 12/01/16 8:35:00 NET SQL DEVELOPER Inactive 11/01/2016 [facility] oxytocin (ANES) (ANES) Route: IV, Drug form: SOLN, Start date: 11/01/16 8:08:00 NET SQL DEVELOPER, Stop date: 11/01/16 9:08:00 NET SQL DEVELOPER Inactive 11/01/2016 [facility] ceFAZolin (ANES) Route: IV, Drug form: INJ, ONCE, Stop date: 11/01/16 8:03:00 NET SQL DEVELOPER Inactive 11/01/2016 [facility] LR 1000 mL INJ (ANES) Route: IV, Total Volume: 1,000, Start date: 11/01/16 7:28:00 NET SQL DEVELOPER, Stop date: 11/01/16 8:28:00 NET SQL DEVELOPER Inactive 11/01/2016 [facility] Cefazolin 2 gm, 100 mL, Route: IVPB, Drug form: INJ, ONCALL, Dosing Weight 91.591, kg, Start date: 11/01/16 6:00:00 NET SQL DEVELOPER, Duration: 1 doses or timesNotes: Same as: Ancef Inactive 11/01/2016 [facility] Misoprostol 1,000 microgram, 5 tab, Route: OR, Drug form: TAB, ONCALL, Dosing Weight 91.591, kg, Start date: 11/01/16 6:00:00 NET SQL DEVELOPER, Duration: 30 day, Stop date: 12/01/16 5:59:00 CSTNotes: (Same as:Cytotec) Take with food Inactive 11/01/2016 [facility] Calcium Chloride 0.0014 MEQ/ML / Potassium Chloride 0.004 MEQ/ML / Sodium Chloride 0.103 MEQ/ML / Sodium Lactate 0.028 MEQ/ML Injectable Solution 1,000 mL, Rate: 125 ml/hr, Infuse over: 8 hr, Route: IV, Dosing Weight 91.591 kg, Total Volume: 1,000, Start date: 11/01/16 5:48:00 NET SQL DEVELOPER, Duration: 30 day, Stop date: 12/01/16 5:47:00 NET SQL DEVELOPER Inactive 11/01/2016 [facility] Ondansetron 4 mg, 2 mL, Route: IVP, Drug form: INJ, Q8H, Dosing Weight 91.591, kg, PRN Nausea & Vomiting, Start date: 11/01/16 5:48:00 NET SQL DEVELOPER, Duration: 30 day, Stop date: 12/01/16 5:47:00 CSTNotes: (Same as: Zofran) MEDICATION WASTE Product Size: 4 mg Product Wasted: ___ mg Inactive 11/01/2016 [facility] Metoclopramide 10 mg, 2 mL, Route: IVP, Drug form: INJ, Q6H, Dosing Weight 91.591, kg, PRN Nausea & Vomiting, Start date: 11/01/16 5:48:00 NET SQL DEVELOPER, Duration: 30 day, Stop date: 12/01/16 5:47:00 CSTNotes: (Same as: Reglan) Inactive 11/01/2016 [facility] Citric Acid / sodium citrate 30 mL, Route: PO, Drug Form: SOLN, Dosing Weight 91.591, kg, ONCE, Start date: 11/01/16 5:48:00 NET SQL DEVELOPER, Duration: 1 doses or times, Stop date: 11/01/16 5:48:00 CSTNotes: (Same As: Bicitra, Cytra-2) Sodium citrate-citric acid (500-334 mg/5 mL): 1 mL contains sodium 1 mEq/mL and bicarbonate 1 mEq/mL Inactive 11/01/2016 [facility] oxytocin 30 units in LR 500 mL 30 unit 30 unit, 500 mL, Rate: 42 ml/hr, Infuse over: 11.9 hr, Dosing Weight 91.591, kg, Route: IV, Total Volume: 500 mL, Start date: 11/01/16 5:48:00 NET SQL DEVELOPER, Duration: 1 doses or times, Stop date: 11/01/16 17:41:00 NET SQL DEVELOPER, Replace Every: 11.9 hrNotes: Pitocin 30 units in LR 500 mL Inactive 11/01/2016 [facility] Terbutaline 0.25 mg, 0.25 mL, Route: SUB-Q, Drug form: INJ, ONCALL, Dosing Weight 91.591, kg, PRN Other -See Comment, Start date: 11/01/16 5:48:00 NET SQL DEVELOPER, Duration: 1 doses or times, Stop date: Limited # of timesNotes: DO NOT USE IN PUBLIC HEALTH DENTIST AREA (Same As: Brethine) Inactive 11/01/2016 [facility] Morphine 2 mg, 1 mL, Route: IVP, Drug form: INJ, Q2H, Dosing Weight 91.591, kg, PRN Pain Score 7-10, Start date: 11/01/16 5:48:00 NET SQL DEVELOPER, Duration: 30 day, Stop date: 12/01/16 5:47:00 CSTNotes: (Same as:MORPhine Sulfate) Inactive 11/01/2016 [facility] Calcium Carbonate 500 MG Chewable Tablet [Tums] 500 mg=1 tab, CHEW, TID, 0 Refill(s) Active 10/31/2016 [facility] Clonazepam 2 MG Oral Tablet [Klonopin] 2 mg=1 tab, PO, BID, # 6 tab, 0 Refill(s) Active 02/20/2015 [facility] Medrol 4 mg, 1 tab, Route: PO, Drug form: TAB, Bedtime, Start date: 09/16/13 21:00:00, Duration: 3 doses or times, Stop date: 09/16/13 21:00:00(Same as :Medrol) Take with food No Longer Active [place] 09/17/2013 [facility] Medrol 4 mg, 1 tab, Route: PO, Drug form: TAB, After Dinner, Start date: 09/15/13 17:00:00, Duration: 2 doses or times, Stop date: 09/15/13 17:00:00(Same as :Medrol) Take with food No Longer Active [place] 09/15/2013 [facility] Medrol 4 mg, 1 tab, Route: PO, Drug form: TAB, After Lunch, Start date: 09/15/13 12:30:00, Duration: 3 doses or times, Stop date: 09/16/13 12:30:00(Same as :Medrol) Take with food No Longer Active [place] 09/15/2013 [facility] Medrol Dosepak 4 mg Tablet As directed on package instructions, PO, Daily, Take with or without food, 1 Pack, Substitution AllowedTake with or without food Active [facility] 09/15/2013 [facility] hydrocortisone topical 1% cream 1 appl, TOP, BID, 30 gm, Substitution Allowed, apply a thin layer to the affected areaapply a thin layer to the affected area Active [facility] Ahn 09/15/2013 [facility] Medrol 4 mg, 1 tab, Route: PO, Drug form: TAB, Before Breakfast, Start date: 09/15/13 7:30:00, Duration: 5 doses or times, Stop date: 10/19/13 7:30:00(Same as :Medrol) Take with food No Longer Active [place] 09/15/2013 [facility] Medrol 8 mg, 2 tab, Route: PO, Drug form: TAB, Bedtime, Start date: 09/14/13 21:00:00, Duration: 2 doses or times, Stop date: 10/15/13 21:00:00(Same as :Medrol) Take with food Inactive [place] 09/15/2013 [facility] Medrol 8 mg, 2 tab, Route: PO, Drug form: TAB, After Dinner, Start date: 09/14/13 17:00:00, Duration: 1 doses or times, Stop date: 10/14/13 17:00:00(Same as :Medrol) Take with food Inactive [place] 09/14/2013 [facility] Medrol Dosepak 4 mg Tablet 4 mg, Route: PO, Drug form: TAB, QID-After Meals, Dosing Weight 88.182, kg, Start date: 09/14/13 13:00:00, Duration: 6 day, Stop date: 09/20/13 8:30:00 Inactive [place] 09/14/2013 [facility] Medrol 8 mg, 2 tab, Route: PO, Drug form: TAB, After Lunch, Start date: 09/14/13 12:30:00, Duration: 1 doses or times, Stop date: 10/14/13 12:30:00(Same as :Medrol) Take with food Inactive [place] 09/14/2013 [facility] hydrocortisone topical 1% cream 1 appl, Route: TOP, BID, Drug form: CRM, PRN Rash, Start date: 09/13/13 12:55:00, Duration: 30 day, Stop date: 10/13/13 12:54:00 No Longer Active [place] 09/13/2013 [facility] Multivitamins oral tablet 1 tab, Route: PO, Drug Form: TAB, Dosing Weight 88.182, kg, Daily, Start date: 09/13/13 9:00:00, Duration: 30 day, Stop date: 10/12/13 9:00:00 No Longer Active [place] 09/13/2013 [facility] naloxone 0.4 mg, 1 mL, Route: IVP, Drug form: INJ, ONCALL, Dosing Weight 88.182, kg, Start date: 09/12/13 20:00:00, Duration: 24 hr, Stop date: 09/13/13 19:59:00Same as Narcan No Longer Active [facility] 09/13/2013 [facility] Percocet 5/325 oral tablet 2 tab, Route: PO, Drug Form: TAB, Dosing Weight 88.182, kg, Q6H, PRN Pain Score 6-10, Start date: 09/12/13 19:25:00, Duration: 30 day, Stop date: 10/12/13 19:24:00Do not exceed 4gm/day of acetaminophen. (Same as: Percocet-5/325) No Longer Active [facility] 09/13/2013 [facility] Periactin 4 mg, 1 tab, Route: PO, Drug form: TAB, TID, Dosing Weight 88.182, kg, PRN Itching, Start date: 09/12/13 19:25:00, Duration: 30 day, Stop date: 10/12/13 19:24:00(Same As: Periactin) No Longer Active [facility] 09/13/2013 [facility] promethazine + Sodium Chloride 0.9% IV 50 mL 6.25 mg, 0.25 mL, Route: IVPB, Q6H, Dosing Weight 88.182, kg, PRN Nausea & Vomiting, Start date: 09/12/13 19:25:00, Duration: 24 hr, Stop date: 09/13/13 19:24:00Do not give IV push. (Same as: Phenergan) No Longer Active [facility] 09/13/2013 [facility] ondansetron 4 mg, 2 mL, Route: IVP, Drug form: INJ, Q6H, Dosing Weight 88.182, kg, PRN Nausea & Vomiting, Start date: 09/12/13 19:25:00, Duration: 24 hr, Stop date: 09/13/13 19:24:00(Same as: Zofran) No Longer Active [facility] 09/13/2013 [facility] acetaminophen 1,000 mg, 100 mL, Route: IVPB, Drug form: INJ, Q6H, Dosing Weight 88.182, kg, PRN Pain Score 6-10, Priority: NOW, Start date: 09/12/13 19:25:00, Duration: 24 hr, Stop date: 09/13/13 19:24:00Infuse ov er 15 minutes Do not exceed 4gm/day of acetaminophen No Longer Active [facility] 09/13/2013 [facility] ketorolac 30 mg, 1 mL, Route: IVP, Drug form: INJ, Q6H, Dosing Weight 88.182, kg, PRN Pain Score 4-6, Start date: 09/12/13 19:25:00, Duration: 24 hr, Stop date: 09/13/13 19:24:00(Same as:Toradol) IV bolus must be given >15 seconds. Give IM administration slowly and deeply into the muscle. Not for use > [address] [facility] 09/13/2013 [facility] naloxone 0.4 mg + Sodium Chloride 0.9% IV 1,000 mL 1,000 mL, Rate: 17 microgram/hr, Route: IV, Dosing Weight 88.182 kg, Total Volume: 1,001 mL, PRN itching, Start date: 09/12/13 19:25:00, Duration: 30 day, Stop date: 10/12/13 19:24:[address] [facility] 09/13/2013 [facility] diphenhydrAMINE 12.5 mg, 0.25 mL, Route: IVP, Drug form: INJ, Q6H, Dosing Weight 88.182, kg, PRN Itching, Start date: 09/12/13 19:25:00, Duration: 30 day, Stop date: 10/12/13 19:24:00(Same as: Benadryl) Inactive [facility] 09/13/2013 [facility] ephedrine 5 mg, 0.1 mL, Route: IVP, Drug form: INJ, Q5Min, Dosing Weight 88.182, kg, PRN Low Blood Pressure, Start date: 09/12/13 19:25:00, Duration: 30 day, Stop date: 10/12/13 19:24:00(Same as: Ephedrine Sul fate) Inactive [facility] 09/13/2013 [facility] flumazenil 0.2 mg, 2 mL, Route: IVP, Drug form: INJ, PRN, Dosing Weight 88.182, kg, PRN Benzodiazepine Reversal, Initial dose, Start date: 09/12/13 19:25:00, Duration: 30 day, Stop date: 10/12/13 19:24:00(Same as: Romazicon) Inactive [facility] 09/13/2013 [facility] naloxone 0.04 mg, 0.1 mL, Route: IVP, Drug form: INJ, Q2MIN, Dosing Weight 88.182, kg, PRN Narcotic Reversal, Start date: 09/12/13 19:25:00, Duration: 8 doses or times, Stop date: Limited # of timesSame as Narcan Inactive [facility] 09/13/2013 [facility] M-M-R II 0.5 mL, Route: SUB-Q, Drug Form: PDR/INJ, Dosing Weight 88.182, kg, ONCALL, Start date: 09/12/13 19:00:00, Duration: 1 doses or times(Same as: M-M-R II) (wgrzagm-yfaiy-iqmkuuf virus vaccine 0.5 ml INJ VL) GIVE PRIOR TO DISCHARGE No Longer Active [facility] 09/13/2013 [facility] benzocaine-menthol topical 1 lozenge, Route: PO, Drug Form: IMER, Dosing Weight 88.182, kg, PRN, PRN Sore Throat, Start date: 09/12/13 18:59:00, Duration: 30 day, Stop date: 10/12/13 18:58:00Same as: Cepacol Sugar Free Lozenge No Longer Active [facility] 09/13/2013 [facility] lanolin topical cream 1 appl, Route: TOP, PRN, Drug form: OINT, PRN Other -See Comment, Start date: 09/12/13 18:59:00, Duration: 30 day, Stop date: 10/12/13 18:58:00(Same as:Lanolin) No Longer Active [facility] 09/13/2013 [facility] simethicone 160 mg, 2 tab, Route: PO, Drug form: CHEWTAB, Q8H, Dosing Weight 88.182, kg, PRN Gas, Start date: 09/12/13 18:59:00, Duration: 30 day, Stop date: 10/12/13 18:58:00(Same as: Mylicon) No Longer Active [facility] 09/13/2013 [facility] acetaminophen 650 mg, 2 tab, Route: PO, Drug form: TAB, Q4H, Dosing Weight 88.182, kg, PRN Other -See Comment, Start date: 09/12/13 18:59:00, Duration: 30 day, Stop date: 10/12/13 18:58:00Do not exceed 4 gm/day. (Same as: Tylenol) No Longer Active [facility] 09/13/2013 [facility] Lactated Ringers IV 1,000 mL 1,000 mL, Rate: 100 ml/hr, Infuse over: 10 hr, Route: IV, Dosing Weight 88.182 kg, Total Volume: 1,000, Start date: 09/12/13 18:59:00, Duration: 30 day, Stop date: 10/12/13 18:58:00 No Longer Active [facility] 09/13/2013 [facility] bisacodyl 10 mg, 1 supp, Route: OR, Drug form: SUPP, PRN, Dosing Weight 88.182, kg, PRN Other -See Comment, Start date: 09/12/13 18:59:00, Duration: 30 day, Stop date: 10/12/13 18:58:00(Same As: Dulcolax, Bisc o-Lax) No Longer Active [facility] 09/13/2013 [facility] zolpidem 5 mg, 1 tab, Route: PO, Drug form: TAB, Bedtime, Dosing Weight 88.182, kg, PRN Insomnia, Start date: 09/12/13 18:59:00, Duration: 30 day, Stop date: 10/12/13 18:58:00(Same As: Ambien) No Longer Active [facility] 09/13/2013 [facility] Lactated Ringers 1000ml+Oxytocin 20 units IV (Premix) 20 unit 20 unit, 1,000 mL, Rate: 125 ml/hr, Infuse over: 8 hr, Dosing Weight 88.182, kg, Route: IV, Total Volume: 1,000 mL, Start date: 09/12/13 18:59:00, Duration: 2 day, Stop date: 09/14/13 18:58:00, Replace Every: 8 hrConc=0.02unit/ml=20milliunit/ml No Longer Active [facility] 09/13/2013 [facility] Lactated Ringers 1000ml+Pitocin 20 units IV (Premix) 20 unit 20 unit, 1,000 mL, Rate: 125 ml/hr, Infuse over: 8 hr, Dosing Weight 88.182, kg, Route: IV, Total Volume: 1,000 mL, Start date: 09/12/13 18:59:00, Duration: 2 day, Stop date: 09/14/13 18:58:00, Replace Every: 8 hrConc=0.02unit/ml=20milliunit/ml No Longer Active [facility] 09/13/2013 [facility] ibuprofen 600 mg, 1 tab, Route: PO, Drug form: TAB, Q6H, Dosing Weight 88.182, kg, PRN Pain Score 1-5, Start date: 09/12/13 18:59:00, Duration: 30 day, Stop date: 10/12/13 18:58:00(Same as: Motrin) "Do Not Crush" Take with food. No Longer Active [facility] 09/13/2013 [facility] acetaminophen-hydrocodone 325 mg-5 mg oral tablet 1 tab, Route: PO, Drug Form: TAB, Dosing Weight 88.182, kg, Q4H, PRN Pain Score 1-3, Start date: 09/12/13 18:59:00, Duration: 30 day, Stop date: 10/12/13 18:58:00(Same as: [place] 325/5) Do not exceed 4gm/day of acetaminophen. No Longer Active [facility] 09/13/2013 [facility] Hemocyte-F oral tablet See Instructions, tab PO twice a day, 60 tab, Substitution Allowed, Maintenancetab PO twice a day Active [facility] 09/12/2013 [facility] acetaminophen-hydrocodone 325 mg-7.5 mg oral tablet 1 tab, PO, Q4H, PRN, 30 tab, for pain, Substitution Allowed, Maintenance, TAB Active [facility] 09/12/2013 [facility] Motrin 800 mg oral tablet 800 mg, 1 tab, PO, Q8H, PRN, Take with food, 30 tab, Pain, Substitution AllowedTake with food Active [facility] 09/12/2013 [facility] Lactated Ringers 1000ml+Pitocin 20 units IV (Premix Titrate) 20 unit 20 unit, 1,000 mL, Rate: Titrate, Dosing Weight 88.182, kg, Route: IV, Total Volume: 1,000 mL, Start date: 09/12/13 3:32:00, Duration: 2 day, Stop date: 09/14/13 3:31:00, Replace Every: 24 hrConc=0.02unit/ml=20milliunit/ml Inactive [facility] 09/12/2013 [facility] Cervidil 10 mg, 1 supp, Route: VAG, Drug form: INS, ONCE, Dosing Weight 88.182, kg, Start date: 09/11/13 20:51:00, Duration: 1 doses or times, Stop date: 09/11/13 20:51:00(Same as: Cervidil) No Longer Active [facility] 09/12/2013 [facility] ephedrine 10 mg, 0.2 mL, Route: IVP, Drug form: INJ, ONCE, Dosing Weight 88.182, kg, Start date: 09/11/13 18:06:00, Stop date: 09/11/13 18:06:00(Same as: Ephedrine Sulfate) No Longer Active [facility] 09/12/2013 [facility] diphenhydrAMINE 12.5 mg, 5 mL, Route: PO, Drug form: LIQ, Q6H, Dosing Weight 88.182, kg, PRN Itching, Start date: 09/11/13 18:06:00, Duration: 30 day, Stop date: 10/11/13 18:05:00(Same as: Benadryl) No Longer Active [facility] 09/12/2013 [facility] FENTanyl 4mcg/ml+Bupivacaine 0.167% Epidural 60 mL Infuse via: Regional, Route: EPIDURAL, Start date: 09/11/13 18:06:00 60 mL, Drug Form: INJ, Duration: 30 day, Stop date: 10/11/13 18:05:00(Same as: Sublimaze- Marcaine) Fentanyl 4 mcg/ml + bupivacaine 0.1667%. No Longer Active [facility] 09/12/2013 [facility] Cytotec 25 microgram, 1 ea, Route: VAG, Drug form: TAB, Q3H, Dosing Weight 88.182, kg, Start date: 09/10/13 21:05:00, Duration: 30 day, Stop date: 10/10/13 21:00:00(Same as:Cytotec) Take with food 25 microgram=1/4 tab of 100 microgram. No Longer Active [facility] 09/11/2013 [facility] misoprostol 1,000 microgram, 5 tab, Route: OR, Drug form: TAB, ONCALL, Dosing Weight 63.636, kg, Start date: 09/10/13 20:00:00, Duration: 1 doses or times(Same as:Cytotec) Take with food No Longer Active [facility] 09/11/2013 [facility] oxytocin-add to current IV 20 unit, 2 mL, Route: INJ, Drug form: SOLN, ONCALL, Dosing Weight 63.636, kg, Start date: 09/10/13 20:00:00, Duration: 2 day, Stop date: 09/12/13 19:59:00(Same as: Pitocin) No Longer Active [facility] 09/11/2013 [facility] citric acid-sodium citrate 30 mL, Route: PO, Drug Form: SOLN, Dosing Weight 63.636, kg, ONCALL, Start date: 09/10/13 20:00:00, Duration: 30 day, Stop date: 10/10/13 19:59:00(Same As: Bicitra, Cytra-2) Sodium citrate-citric acid (500-334 mg/5 mL): 1 mL contains sodium 1 mEq/mL and bicarbonate 1 mEq/mL No Longer Active [facility] 09/11/2013 [facility] famotidine 20 mg, 2 mL, Route: IVP, Drug form: INJ, ONCALL, Dosing Weight 63.636, kg, Start date: 09/10/13 20:00:00, Duration: 30 day, Stop date: 10/10/13 19:59:00(Same as: Pepcid) Can be dilute in 5-10cc NS IVP: Slow IV push over at least 2 minutes. No Longer Active [facility] 09/11/2013 [facility] 1 Plus 1 oral tablet Substitution Allowed, Maintenance Active 09/11/2013 [facility] butorphanol 1 mg, 1 mL, Route: IVP, Drug form: INJ, Q2H, Dosing Weight 63.636, kg, PRN Pain Score 1-5, Start date: 09/10/13 19:49:00, Duration: 30 day, Stop date: 10/10/13 19:48:00(Same As: Stadol) No Longer Active [facility] 09/11/2013 [facility] meperidine 50 mg, 1 mL, Route: IVP, Drug form: INJ, Q3H, Dosing Weight 63.636, kg, PRN Pain Score 6-10, Start date: 09/10/13 19:49:00, Duration: 48 hr, Stop date: 09/12/13 19:48:00(Same as: Demerol) "Use Precaution in Elderly, Seizure disorders, and Renal impairment" No Longer Active [facility] 09/11/2013 [facility] ibuprofen 800 mg, 1 tab, Route: PO, Drug form: TAB, Q8H, Dosing Weight 63.636, kg, PRN Other -See Comment, Start date: 09/10/13 19:49:00, Duration: 30 day, Stop date: 10/10/13 19:48:00(Same as: Motrin) "Do Not Crush" Take with food. No Longer Active [facility] 09/11/2013 [facility] acetaminophen-hydrocodone 325 mg-5 mg oral tablet 2 tab, Route: PO, Drug Form: TAB, Dosing Weight 63.636, kg, Q4H, PRN Pain Score 4-6, Start date: 09/10/13 19:49:00, Duration: 30 day, Stop date: 10/10/13 19:48:00(Same as: [place] 325/5) Do not exceed 4gm/day of acetaminophen. No Longer Active [facility] 09/11/2013 [facility] ondansetron 4 mg, 2 mL, Route: IVP, Drug form: INJ, Q8H, Dosing Weight 63.636, kg, PRN Nausea & Vomiting, Start date: 09/10/13 19:49:00, Duration: 30 day, Stop date: 10/10/13 19:48:00(Same as: Zofran) No Longer Active [facility] 09/11/2013 [facility] lidocaine 1% 20 mL, Route: PERCUT, Drug Form: INJ, Dosing Weight 63.636, kg, PRN, PRN Other -See Comment, Start date: 09/10/13 19:49:00, Duration: 1 doses or times, Stop date: Limited # of timesPreservative free. (Same as: Xylocaine MPF) No Longer Active [facility] 09/11/2013 [facility] terbutaline 0.25 mg, 0.25 mL, Route: SUB-Q, Drug form: INJ, PRN, Dosing Weight 63.636, kg, PRN Other -See Comment, Start date: 09/10/13 19:49:00, Duration: 1 doses or times, Stop date: Limited # of timesDO NOT USE IN PUBLIC HEALTH DENTIST AREA (Same As: Brethine) No Longer Active [facility] 09/11/2013 [facility] Lactated Ringers Injection IV 1,000 mL 1,000 mL, Rate: 100 ml/hr, Infuse over: 10 hr, Route: IV, Dosing Weight 63.636 kg, Total Volume: 1,000, Bolus for regional anesthesia per unit protocol, Start date: 09/10/13 19:49:00, Duration: 30 day, Stop date: 10/10/13 19:48:00 No Longer Active [facility] 09/11/2013 [facility] lidocaine 1% injectable solution 0.25 mL, Route: INTRADERM, Drug Form: INJ, Dosing Weight 63.636, kg, ONCE, Start date: 09/10/13 19:49:00, Stop date: 09/10/13 19:49:00Preservative free. (Same as: Xylocaine MPF) No Longer Active [facility] 09/11/2013 [facility] Lactated Ringers 1000ml+Pitocin 20 units IV (Premix) 20 unit 20 unit, 1,000 mL, Rate: 125 ml/hr, Infuse over: 8 hr, Dosing Weight 63.636, kg, Route: IV, Total Volume: 1,000 mL, Start date: 09/10/13 19:49:00, Duration: 2 day, Stop date: 09/12/13 19:48:00, Replace Every: 8 hrConc=0.02unit/ml=20milliunit/ml No Longer Active [facility] 09/11/2013 [facility] Dextrose 5% in Lactated Ringers IV 1,000 mL 1,000 mL, Rate: 125 ml/hr, Infuse over: 8 hr, Route: IV, Dosing Weight 63.636 kg, Total Volume: 1,000, Start date: 09/10/13 19:49:00, Duration: 30 day, Stop date: 10/10/13 19:48:00 No Longer Active [facility] 09/11/2013 [facility] Vicodin ES 7.5/750 oral tablet 1 tab, PO, Q4-6H, PRN, 15 tab, for Pain, Substitution Allowed, Maintenance PO Active [facility] 08/21/2011 [facility] clindamycin 300 mg oral capsule 300 mg, 1 cap, PO, QID, 40 cap, Substitution Allowed PO Active [facility] 08/21/2011 [facility] Augmentin 875 mg oral tablet 1 tab, PO, Q12H, 20 tab, Substitution Allowed, Maintenance, TAB PO Active [facility] 08/21/2011 [facility] ceftriaxone 1 gm, Route: IM, Drug form: PDR/INJ, ONCE, Priority: STAT, Start date: 08/21/11 15:03:00, Stop date: 08/21/11 15:03:00 IM No Longer Active [facility] 08/21/2011 [facility] ibuprofen 800 mg, Route: PO, Drug form: TAB, ONCE, Priority: STAT, Start date: 06/19/11 22:42:00, Stop date: 06/19/11 22:42:00 PO No Longer Active [facility] 06/20/2011 [facility] Lorcet 10/650 oral tablet 1 tab, PO, Q4H, PRN, for pain, Substitution Allowed, Maintenance, TAB PO Active 06/20/2011 [facility] Saline Flush 0.9% 5 ml, Route: IVP, Drug Form: INJ, PRN, PRN Line Flush, Start date: 06/19/11 22:28:00, Duration: 30 day, Stop date: 07/19/11 22:27:00 IVP No Longer Active [facility] 06/20/2011 [facility] aspirin 325 mg tablet 1 tab, PO, Daily, 90 tab, Substitution Allowed, TAB PO Active 06/18/2011 [facility] Allergies, Adverse Reactions, Alerts Substance Category Reaction Severity Reaction type Status Date Reported Comments Source penicillins drug allergy Allergy Active [facility] Ultram drug allergy Allergy Active [facility] Immunizations Immunization Date Given Site Status Last Updated Comments Source Results Order Name Results Value Reference Range Date Interpretation Comments Source TOXICOLOGY Etoh (%) null 12/24/2018 [facility] TOXICOLOGY Ethanol Lvl null 12/24/2018 [facility] TOXICOLOGY Acetaminoph Lvl <2
(12/23/18 7:36 PM) 10 - 20 12/24/2018 [facility] TOXICOLOGY Salicylate Lvl null 0.0 - 30.0 12/24/2018 [facility] CARDIAC ENZYMES Troponin-I null 0.00 - 0.40 12/23/2018 [facility] DRUG SCREEN U Shannon Scr Negative *NA* (12/23/18 1:33 PM) Negative 12/23/2018 [facility] DRUG SCREEN U Cocaine Scr Negative *NA* (12/23/18 1:33 PM) Negative 12/23/2018 [facility] DRUG SCREEN U Amph Scr Positive *ABN* (12/23/18 1:33 PM) Negative 12/23/2018 [facility] DRUG SCREEN U Benzodiaz Scr Negative *NA* (12/23/18 1:33 PM) Negative 12/23/2018 [facility] DRUG SCREEN U Opiate Scr Negative *NA* (12/23/18 1:33 PM) Negative 12/23/2018 [facility] DRUG SCREEN U Cannab Scr Negative *NA* (12/23/18 1:33 PM) Negative 12/23/2018 [facility] DRUG SCREEN U Phencyclidine Scr Negative *NA* (12/23/18 1:33 PM) Negative 12/23/2018 [facility] DRUG SCREEN UDS Note See Note (12/23/18 1:33 PM) 12/23/2018 [facility] ELECTROLYTES AGAP 6.2 meq/L 10.0 - 20.0 12/23/2018 [facility] ELECTROLYTES Globulin 3.3 g/dL 2.7 - 4.2 12/23/2018 [facility] ELECTROLYTES A/G Ratio 1.0 0.7 - 1.6 12/23/2018 [facility] ELECTROLYTES B/C Ratio 17 6 - 25 12/23/2018 [facility] ELECTROLYTES ALT 21 unit/L 0 - 65 12/23/2018 [facility] ELECTROLYTES AST 14 unit/L 0 - 37 12/23/2018 [facility] ELECTROLYTES Alk Phos 65 unit/L 39 - 136 12/23/2018 [facility] ELECTROLYTES Bili Total 0.2 mg/dL 0.2 - 1.3 12/23/2018 [facility] ELECTROLYTES eGFR 106 mL/min/1.73m2 12/23/2018 Result Comment: The eGFR is calculated using the [...] from the National Kidney Disease Education Program (NKDEP) which additionally recommends that when the eGFR is used in patients with extremes of body mass index for purposes of drug dosing, the eGFR should be multiplied by the estimated BMI. [facility] ELECTROLYTES Albumin Lvl 3.3 g/dL 3.5 - 5.0 12/23/2018 [facility] ELECTROLYTES Sodium Lvl 140 meq/L 135 - 145 12/23/2018 [facility] ELECTROLYTES Creatinine Lvl 0.70 mg/dL 0.50 - 1.40 12/23/2018 [facility] ELECTROLYTES Chloride Lvl 108 meq/L 95 - 109 12/23/2018 [facility] ELECTROLYTES Potassium Lvl 4.2 meq/L 3.5 - 5.1 12/23/2018 [facility] ELECTROLYTES BUN 12 mg/dL 7 - 22 12/23/2018 [facility] ELECTROLYTES Glucose Lvl 83 mg/dL 70 - 99 12/23/2018 [facility] ELECTROLYTES Total Protein 6.6 g/dL 6.4 - 8.4 12/23/2018 [facility] ELECTROLYTES Calcium Lvl 8.4 mg/dL 8.5 - 10.5 12/23/2018 [facility] ELECTROLYTES CO2 30 meq/L 24 - 32 12/23/2018 [facility] MCH 26.7 pg 27.0 - 31.0 12/23/2018 [facility] MCV 82.5 fL 80.0 - 98.0 12/23/2018 [facility] RBC 4.34 M/CMM 4.20 - 5.40 12/23/2018 [facility] Hgb 11.6 g/dL 12.0 - 16.0 12/23/2018 [facility] Hct 35.8 % 36.0 - 48.0 12/23/2018 [facility] MCHC 32.4 g/dL 32.0 - 36.0 12/23/2018 [facility] RDW 15.3 % 11.5 - 14.5 12/23/2018 [facility] Platelet 331 K/CMM 133 - 450 12/23/2018 [facility] MPV 9.3 fL 7.4 - 10.4 12/23/2018 [facility] WBC 6.4 K/CMM 3.7 - 10.4 12/23/2018 [facility] Neutrophils # 4.0 K/CMM 1.5 - 8.1 12/23/2018 [facility] Lymphocytes 31.8 % 20.0 - 40.0 12/23/2018 [facility] Monocytes 4.1 % 2.0 - 12.0 12/23/2018 [facility] HEMATOLOGY Eosinophils 1.3 % 0.0 - 4.0 12/23/2018 [facility] Basophils 0.5 % 0.0 - 1.0 12/23/2018 [facility] Segs 62.3 % 45.0 - 75.0 12/23/2018 [facility] Lymphocytes # 2.0 K/CMM 1.0 - 5.5 12/23/2018 [facility] HEMATOLOGY Monocytes # 0.3 K/CMM 0.0 - 0.8 12/23/2018 [facility] HEMATOLOGY Eosinophils # 0.1 K/CMM 0.0 - 0.5 12/23/2018 [facility] URINE AND STOOL UA Mucus Few /LPF None Seen /LPF 12/23/2018 [facility] URINE AND STOOL UA Hyal Cast 1 /LPF 0 - 2 12/23/2018 [facility] URINE AND STOOL UA Bacteria Occasional /HPF None Seen /HPF 12/23/2018 [facility] URINE AND STOOL UA WBC 2 /HPF 0 - 5 12/23/2018 [facility] URINE AND STOOL UA Sq Epi Moderate /LPF Few /LPF 12/23/2018 [facility] URINE AND STOOL UA RBC 2 /HPF 0 - 2 12/23/2018 [facility] URINE AND STOOL UA Nitrite Negative (12/23/18 1:33 PM) Negative 12/23/2018 [facility] URINE AND STOOL UA Urobilinogen <=1.0 mg/dL 0.1 - 1.0 12/23/2018 [facility] URINE AND STOOL UA Glucose Negative *NA* (12/23/18 1:33 PM) Negative 12/23/2018 [facility] URINE AND STOOL UA Blood Negative (12/23/18 1:33 PM) Negative 12/23/2018 [facility] URINE AND STOOL UA Leuk Est Large *ABN* (12/23/18 1:33 PM) Negative 12/23/2018 [facility] URINE AND STOOL UA Ketones Negative *NA* (12/23/18 1:33 PM) Negative 12/23/2018 [facility] URINE AND STOOL UA Bili Negative *NA* (12/23/18 1:33 PM) Negative 12/23/2018 [facility] URINE AND STOOL UA Protein Negative (12/23/18 1:33 PM) Negative 12/23/2018 [facility] URINE AND STOOL UA pH 6.0 5.0 - 8.0 12/23/2018 [facility] URINE AND STOOL UA Spec Grav 1.014 <=1.030 12/23/2018 [facility] URINE AND STOOL UA Color Juanita 12/23/2018 [facility] URINE AND STOOL UA Turbidity Slight *ABN* (12/23/18 1:33 PM) Clear 12/23/2018 [facility] URINE CHEM U Preg Negative (12/23/18 1:33 PM) Negative 12/23/2018 [facility] Chest 2 views DX Chest 2 views DX EXAM: PA and lateral radiographs of the chest, 2 images obtained INDICATION: Chest pain, shortness of breath COMPARISON: 06/20/2011 chest radiographs FINDINGS: Heart, mediastinum, and pulmonary vessels are within normal limits. No consolidation, pneumothorax, or pleural effusion. No acute osseous abnormalities identified. IMPRESSION: No acute cardiopulmonary findings. SL: [id number] 12/23/2018 - - Read by: Donavan Troy MD Dictated Date/time: 12/23/18 12:59 Electronically Signed by: Donavan Troy MD 12/23/18 13:00 FINAL REPORT [facility] MPV 8.5 fL 7.4 - 10.4 11/04/2016 [facility] WBC 8.8 K/CMM 3.7 - 10.4 11/04/2016 [facility] MCV 78.3 fL 80.0 - 98.0 11/04/2016 [facility] RDW 16.6 % 11.5 - 14.5 11/04/2016 [facility] MCHC 32.4 g/dL 32.0 - 36.0 11/04/2016 [facility] MCH 25.4 pg 27.0 - 31.0 11/04/2016 [facility] Platelet 240 K/CMM 133 - 450 11/04/2016 [facility] RBC 3.62 M/CMM 4.20 - 5.40 11/04/2016 [facility] Hct 28.3 % 36.0 - 48.0 11/04/2016 [facility] Hgb 9.2 g/dL 12.0 - 16.0 11/04/2016 [facility] Hct 26.9 % 36.0 - 48.0 11/02/2016 [facility] Hgb 8.9 g/dL 12.0 - 16.0 11/02/2016 [facility] BLOOD BANK RESULTS Antibody Scrn Negative (10/31/16 1:32 PM) 10/31/2016 [facility] BLOOD BANK RESULTS Rhig Reqd See Note 1 (10/31/16 1:32 PM) 10/31/2016 Result Comment: 10/31/2016 15:00 GEMONROY This patient is not a candidate for Rh(O)D immune globulin. [facility] BLOOD BANK RESULTS ABO/Rh A POS 10/31/2016 [facility] [place] [facility] Hgb 11.0 g/dL 12.0 - 16.0 10/31/2016 [facility] HEMATOLOGY WBC 10.6 K/CMM 3.7 - 10.4 10/31/2016 [facility] HEMATOLOGY RBC 4.29 M/CMM 4.20 - 5.40 10/31/2016 [facility] HEMATOLOGY MCV 77.7 fL 80.0 - 98.0 10/31/2016 [facility] MCH 25.6 pg 27.0 - 31.0 10/31/2016 [facility] MCHC 32.9 g/dL 32.0 - 36.0 10/31/2016 [facility] MPV 9.3 fL 7.4 - 10.4 10/31/2016 [facility] Hct 33.3 % 36.0 - 48.0 10/31/2016 [facility] HEMATOLOGY RDW 16.2 % 11.5 - 14.5 10/31/2016 [facility] Platelet 219 K/CMM 133 - 450 10/31/2016 [facility] Monocytes 8.0 % 2.0 - 12.0 10/31/2016 [facility] HEMATOLOGY Lymphocytes 15.9 % 20.0 - 40.0 10/31/2016 [facility] HEMATOLOGY Segs 74.3 % 45.0 - 75.0 10/31/2016 [facility] HEMATOLOGY Lymphocytes # 1.7 K/CMM 1.0 - 5.5 10/31/2016 [facility] Segs-Bands # 7.9 K/CMM 1.5 - 8.1 10/31/2016 [facility] Eosinophils 1.5 % 0.0 - 4.0 10/31/2016 [facility] HEMATOLOGY Basophils 0.3 % 0.0 - 1.0 10/31/2016 [facility] HEMATOLOGY Eosinophils # 0.2 K/CMM 0.0 - 0.5 10/31/2016 [facility] HEMATOLOGY Microcyte 1+ *ABN* (10/31/16 1:32 PM) None Seen 10/31/2016 [facility] Monocytes # 0.9 K/CMM 0.0 - 0.8 10/31/2016 [facility] IMMUNOLOGY Hep Bs Ag Negative *NA* (10/31/16 1:32 PM) Negative 10/31/2016 [facility] IMMUNOLOGY RPR Non Reactive (10/31/16 1:32 PM) Non Reactive 10/31/2016 [facility] CARDIAC ENZYMES CK MB Index null 0.0 - 2.5 02/19/2015 [facility] CARDIAC ENZYMES Troponin-I null 0.00 - 0.40 02/19/2015 [facility] CARDIAC ENZYMES CK MB null 0.5 - 3.6 02/19/2015 [facility] CARDIAC ENZYMES Total CK 55 unit/L 12 - 191 02/19/2015 [facility] CHEM PANEL A/G Ratio 1.2 0.7 - 1.6 02/19/2015 [facility] CHEM PANEL Total Protein 8.2 g/dL 6.4 - 8.4 02/19/2015 [facility] CHEM PANEL Alk Phos 66 unit/L 39 - 136 02/19/2015 [facility] CHEM PANEL Globulin 3.8 g/dL 2.0 - 4.0 02/19/2015 [facility] CHEM PANEL Bili Total 0.3 mg/dL 0.2 - 1.3 02/19/2015 [facility] CHEM PANEL eGFR 93 mL/min/1.73m2 02/19/2015 1Result Comment: The eGFR is calculated using [...] from the National Kidney Disease Education Program (NKDEP) which additionally recommends that when the eGFR is used in patients with extremes of body mass index for purposes of drug dosing, the eGFR should be multiplied by the estimated BMI. [facility] CHEM PANEL Albumin Lvl 4.4 g/dL 3.5 - 5.0 02/19/2015 [facility] CHEM PANEL CO2 25 meq/L 24 - 32 02/19/2015 [facility] CHEM PANEL Calcium Lvl 8.5 mg/dL 8.5 - 10.5 02/19/2015 [facility] CHEM PANEL BUN 12 mg/dL 7 - 22 02/19/2015 [facility] CHEM PANEL Creatinine Lvl 0.8 mg/dL 0.5 - 1.4 02/19/2015 [facility] CHEM PANEL B/C Ratio 15 6 - 25 02/19/2015 [facility] CHEM PANEL AST 16 unit/L 0 - 37 02/19/2015 [facility] CHEM PANEL ALT 26 unit/L 0 - 65 02/19/2015 [facility] CHEM PANEL AGAP 11.6 meq/L 10.0 - 20.0 02/19/2015 [facility] CHEM PANEL Chloride Lvl 106 meq/L 95 - 109 02/19/2015 [facility] CHEM PANEL Potassium Lvl 3.6 meq/L 3.5 - 5.1 02/19/2015 [facility] CHEM PANEL Sodium Lvl 139 meq/L 135 - 145 02/19/2015 [facility] CHEM PANEL Glucose Lvl 104 mg/dL 70 - 99 02/19/2015 2Interpretive Data: Adult reference range values reflect the clinical guidelines of the [place] [employer]. [facility] DRUG SCREEN U Phencyc Scr Negative *NA* (02/19/15 4:23 PM) Negative 02/19/2015 [facility] DRUG SCREEN U Cocaine Scr Negative *NA* (02/19/15 4:23 PM) Negative 02/19/2015 [facility] DRUG SCREEN U Opiate Scr Negative *NA* (02/19/15 4:23 PM) Negative 02/19/2015 [facility] DRUG SCREEN U Cannab Scr Negative *NA* (02/19/15 4:23 PM) Negative 02/19/2015 [facility] DRUG SCREEN U Benzodia Scr Negative *NA* (02/19/15 4:23 PM) Negative 02/19/2015 [facility] DRUG SCREEN UDS Note See Note 3 *NA* (02/19/15 4:23 PM) 02/19/2015 3Interpretive Data: Drugs reported as positive have not been confirmed by a second method and should be used for medical purposes only. To order confirmation, contact laboratory. note: Below are cut-off concentrations for all urine drugs of abuse performed in the laboratory. Some drugs listed in the table may not be included in this panel. Description Cut-off concentration Amphetamine 1000 ng/mL Barbiturates 200 ng/mL Benzodiazepines 300 ng/mL Cocaine metabolites 300 ng/mL Opiates 300 ng/mL Phencyclidine 25 ng/mL Propoxyphene 300 ng/mL Marijuana metabolites 50 ng/mL Methadone 300 ng/mL Urine alcohol 20 mg/dL [facility] DRUG SCREEN U Shannon Scr Negative *NA* (02/19/15 4:23 PM) Negative 02/19/2015 [facility] DRUG SCREEN U Amph Scr Negative *NA* (02/19/15 4:23 PM) Negative 02/19/2015 [facility] HEMATOLOGY Monocytes 2.9 % 2.0 - 12.0 02/19/2015 [facility] HEMATOLOGY Monocytes # 0.4 K/CMM 0.0 - 0.8 02/19/2015 [facility] HEMATOLOGY Lymphocytes # 1.2 K/CMM 1.0 - 5.5 02/19/2015 [facility] HEMATOLOGY Segs-Bands # 10.5 K/CMM 1.5 - 8.1 02/19/2015 [facility] HEMATOLOGY Basophils 0.2 % 0.0 - 1.0 02/19/2015 [facility] HEMATOLOGY Eosinophils 0.1 % 0.0 - 4.0 02/19/2015 [facility] HEMATOLOGY Eosinophils # 0.0 K/CMM 0.0 - 0.5 02/19/2015 [facility] HEMATOLOGY Basophils # 0.0 K/CMM 0.0 - 0.2 02/19/2015 [facility] HEMATOLOGY Lymphocytes 10.2 % 20.0 - 40.0 02/19/2015 [facility] HEMATOLOGY Segs 86.6 % 45.0 - 75.0 02/19/2015 [facility] HEMATOLOGY RBC 4.30 M/CMM 4.20 - 5.40 02/19/2015 [facility] HEMATOLOGY WBC 12.1 K/CMM 3.7 - 10.4 02/19/2015 [facility] HEMATOLOGY Hgb 12.5 g/dL 12.0 - 16.0 02/19/2015 [facility] HEMATOLOGY RDW 14.5 % 11.5 - 14.5 02/19/2015 [facility] HEMATOLOGY Platelet 273 K/CMM 133 - 450 02/19/2015 [facility] HEMATOLOGY MPV 8.9 fL 7.4 - 10.4 02/19/2015 [facility] HEMATOLOGY MCV 86.5 fL 80.0 - 98.0 02/19/2015 [facility] HEMATOLOGY Hct 37.2 % 36.0 - 48.0 02/19/2015 [facility] HEMATOLOGY MCHC 33.7 g/dL 32.0 - 36.0 02/19/2015 [facility] HEMATOLOGY MCH 29.2 pg 27.0 - 31.0 02/19/2015 [facility] CHEMISTRY Globulin 3.9 g/dL 2.0 - 4.0 09/14/2013 Normal [facility] CHEMISTRY A/G Ratio 0.5 0.7 - 1.6 09/14/2013 LOW [facility] CHEMISTRY AGAP 13.1 meq/L 10.0 - 20.0 09/14/2013 Normal [facility] CHEMISTRY B/C Ratio 19 6 - 25 09/14/2013 Normal [facility] CHEMISTRY Bili Total 0.3 mg/dL 0.2 - 1.3 09/14/2013 Normal [facility] CHEMISTRY ASPARTATE TRANSAMINASE 18 unit/L 0 - 37 09/14/2013 Normal [facility] CHEMISTRY Total Protein 6.0 g/dL 6.4 - 8.4 09/14/2013 LOW [facility] CHEMISTRY ALANINE AMINOTRANSFERASE 18 unit/L 0 - 65 09/14/2013 Normal [facility] CHEMISTRY Alk Phos 188 unit/L 39 - 136 09/14/2013 HI [facility] CHEMISTRY eGFR 100 mL/min/1.73m2 09/14/2013 2Result Comment: The eGFR is calculated using the [...] from the National Kidney Disease Education Program (NKDEP) which additionally recommends that when the eGFR is used in patients with extremes of body mass index for purposes of drug dosing, the eGFR should be multiplied by the estimated BMI. [facility] CHEMISTRY Chloride Lvl 107 meq/L 95 - 109 09/14/2013 Normal [facility] CHEMISTRY Sodium Lvl 144 meq/L 135 - 145 09/14/2013 Normal [facility] CHEMISTRY Calcium Lvl 8.8 mg/dL 8.5 - 10.5 09/14/2013 Normal [facility] CHEMISTRY CO2 28 meq/L 24 - 32 09/14/2013 Normal [facility] CHEMISTRY Potassium Lvl 4.1 meq/L 3.5 - 5.1 09/14/2013 Normal [facility] CHEMISTRY Albumin Lvl 2.1 g/dL 3.5 - 5.0 09/14/2013 LOW [facility] CHEMISTRY BUN 15 mg/dL 7 - 22 09/14/2013 Normal [facility] CHEMISTRY Creatinine Lvl 0.8 mg/dL 0.5 - 1.4 09/14/2013 Normal [facility] CHEMISTRY Glucose Lvl 97 mg/dL 70 - 99 09/14/2013 Normal 3Interpretive Data: Adult reference range values reflect the clinical guidelines of the [place] [employer]. [facility] HEMATOLOGY MCHC 33.5 g/dL 32.0 - 36.0 09/14/2013 Normal [facility] HEMATOLOGY MCH 29.6 pg 27.0 - 31.0 09/14/2013 Normal [facility] HEMATOLOGY RDW 15.7 % 11.5 - 14.5 09/14/2013 [facility] HEMATOLOGY Hct 35.3 % 36.0 - 48.0 09/14/2013 LOW [facility] HEMATOLOGY Hgb 11.8 g/dL 12.0 - 16.0 09/14/2013 LOW [facility] HEMATOLOGY MCV 88.4 fL 81.0 - 99.0 09/14/2013 Normal [facility] HEMATOLOGY Platelet 224 K/CMM 133 - 450 09/14/2013 Normal [facility] HEMATOLOGY MPV 8.8 fL 7.4 - 10.4 09/14/2013 Normal [facility] HEMATOLOGY WBC X 10x3 11.9 K/CMM 3.7 - 10.4 09/14/2013 [facility] HEMATOLOGY RBC X 10x6 3.99 M/CMM 4.20 - 5.40 09/14/2013 LOW [facility] HEMATOLOGY Eosinophils # 0.3 K/CMM 0.0 - 0.5 09/14/2013 Normal [facility] HEMATOLOGY Lymphocytes # 1.4 K/CMM 1.0 - 5.5 09/14/2013 [facility] HEMATOLOGY Basophils # 0.0 K/CMM 0.0 - 0.2 09/14/2013 Normal [facility] HEMATOLOGY Monocytes # 0.6 K/CMM 0.0 - 0.8 09/14/2013 Normal [facility] HEMATOLOGY Segs 80.1 % 45.0 - 75.0 09/14/2013 [facility] HEMATOLOGY Lymphocytes 11.6 % 20.0 - 40.0 09/14/2013 [facility] HEMATOLOGY Monocytes 5.2 % 2.0 - 12.0 09/14/2013 Normal [facility] HEMATOLOGY Basophils 0.4 % 0.0 - 1.0 09/14/2013 Normal [facility] HEMATOLOGY Eosinophils 2.7 % 0.0 - 4.0 09/14/2013 Normal [facility] HEMATOLOGY Segs-Bands # 9.5 K/CMM 1.5 - 8.1 09/14/2013 [facility] HEMATOLOGY RBC Morph Normal (09/14/2013 12:54:00) 09/14/2013 Normal [facility] HEMATOLOGY Plt Morph Normal (09/14/2013 12:54:00) 09/14/2013 Normal [facility] HEMATOLOGY Hct 34.0 % 36.0 - 48.0 09/13/2013 LOW [facility] HEMATOLOGY Hgb 11.3 g/dL 12.0 - 16.0 09/13/2013 [facility] BLOOD BANK RESULTS Rhig Reqd See Note 1 (09/10/2013 20:20:00) 09/11/2013 Normal 1Result Comment: 09/10/2013 22:41 [id number] This patient is not a candidate for Rh(O)D immune globulin. [facility] BLOOD BANK RESULTS Antibody Scrn Negative (09/10/2013 20:20:00) 09/11/2013 Normal [facility] BLOOD BANK RESULTS ABO/Rh A POS 09/11/2013 [facility] HEMATOLOGY MPV 10.1 fL 7.4 - 10.4 09/11/2013 Normal [facility] HEMATOLOGY RDW 15.6 % 11.5 - 14.5 09/11/2013 [facility] HEMATOLOGY Platelet 236 K/CMM 133 - 450 09/11/2013 Normal [facility] HEMATOLOGY MCHC 33.4 g/dL 32.0 - 36.0 09/11/2013 Normal [facility] HEMATOLOGY MCV 87.2 fL 81.0 - 99.0 09/11/2013 Normal [facility] HEMATOLOGY MCH 29.1 pg 27.0 - 31.0 09/11/2013 Normal [facility] HEMATOLOGY RBC X 10x6 4.36 M/CMM 4.20 - 5.40 09/11/2013 Normal [facility] HEMATOLOGY WBC X 10x3 10.0 K/CMM 3.7 - 10.4 09/11/2013 Normal [facility] HEMATOLOGY Hct 38.0 % 36.0 - 48.0 09/11/2013 Normal [facility] HEMATOLOGY Hgb 12.7 g/dL 12.0 - 16.0 09/11/2013 Normal [facility] HEMATOLOGY Lymphocytes # 1.8 K/CMM 1.0 - 5.5 09/11/2013 Normal [facility] HEMATOLOGY Eosinophils # 0.1 K/CMM 0.0 - 0.5 09/11/2013 Normal [facility] HEMATOLOGY Basophils # 0.0 K/CMM 0.0 - 0.2 09/11/2013 Normal [facility] HEMATOLOGY Monocytes # 0.6 K/CMM 0.0 - 0.8 09/11/2013 Normal [facility] HEMATOLOGY Lymphocytes 17.5 % 20.0 - 40.0 09/11/2013 LOW [facility] HEMATOLOGY Segs 75.1 % 45.0 - 75.0 09/11/2013 HI [facility] HEMATOLOGY Segs-Bands # 7.5 K/CMM 1.5 - 8.1 09/11/2013 Normal [facility] HEMATOLOGY Basophils 0.3 % 0.0 - 1.0 09/11/2013 Normal [facility] HEMATOLOGY Eosinophils 1.0 % 0.0 - 4.0 09/11/2013 Normal [facility] HEMATOLOGY Monocytes 6.1 % 2.0 - 12.0 09/11/2013 Normal [facility] IMMUNOLOGY Treponemal Scr Non Reactive *NA* (09/10/2013 20:20:00) Non Reactive 09/11/2013 [facility] IMMUNOLOGY Hep Bs Ag Negative *NA* (09/10/2013 20:20:00) Negative 09/11/2013 [facility] IMMUNOLOGY HIV. Negative *NA* (09/10/2013 20:20:00) Negative 09/11/2013 [facility] CHEMISTRY U Preg Negative (03/29/2012 19:18:00) Negative 03/30/2012 Normal [facility] URINALYSIS UA Turbidity Clear (03/29/2012 19:18:00) Clear 03/30/2012 Normal [facility] URINALYSIS UA Spec Grav 1.005 <=1.030 03/30/2012 Normal [facility] URINALYSIS UA pH 6.0 5.0 - 8.0 03/30/2012 Normal [facility] URINALYSIS UA Protein Negative mg/dL (03/29/2012 19:18:00) Negative 03/30/2012 Normal [facility] URINALYSIS UA Glucose Negative mg/dL *NA* (03/29/2012 19:18:00) Negative 03/30/2012 NA [facility] URINALYSIS UA Nitrite Negative (03/29/2012 19:18:00) Negative 03/30/2012 Normal [facility] URINALYSIS UA Leuk Est Small *ABN* (03/29/2012 19:18:00) Negative 03/30/2012 ABN [facility] URINALYSIS UA Ketones Negative mg/dL *NA* (03/29/2012 19:18:00) Negative 03/30/2012 [facility] URINALYSIS UA Bili Negative *NA* (03/29/2012 19:18:00) Negative 03/30/2012 NA [facility] URINALYSIS UA Blood Negative (03/29/2012 19:18:00) Negative 03/30/2012 Normal [facility] URINALYSIS UA Sq Epi Occasional /LPF *NA* (03/29/2012 19:18:00) Few 03/30/2012 [facility] URINALYSIS UA WBC 7 /HPF 0 - 5 03/30/2012 HI [facility] URINALYSIS UA Color Ltyellow 03/30/2012 [facility] URINALYSIS UA Urobilinogen <=1.0 mg/dL
*NA*
(03/29/2012 19:18:00) <sup> </sup> 0.1 - 1.0 03/30/2012 [facility] CHEMISTRY UDS Note See Note 2 (06/19/2011 22:09:00) ?? 06/20/2011 Normal 2Interpretive Data: Drugs reported as positive have [...] 50 ng/mLMethadone 300 ng/mLUrine alcohol 20 mg/dL [facility] CHEMISTRY U Amph Scr Negative *NA* (06/19/2011 22:09:00) ?? >Negative 06/20/2011 NA [facility] CHEMISTRY U Shannon Scr Negative *NA* (06/19/2011 22:09:00) ?? >Negative 06/20/2011 NA [facility] CHEMISTRY U Cannab Scr Positive *ABN* (06/19/2011 22:09:00) ?? >Negative 06/20/2011 ABN [facility] CHEMISTRY U Opiate Scr Positive *ABN* (06/19/2011 22:09:00) ?? >Negative 06/20/2011 ABN [facility] CHEMISTRY U Benzodia Scr Negative *NA* (06/19/2011 22:09:00) ?? >Negative 06/20/2011 NA [facility] CHEMISTRY U Cocaine Scr Negative *NA* (06/19/2011 22:09:00) ?? >Negative 06/20/2011 [facility] CHEMISTRY U Phencyc Scr Negative *NA* (06/19/2011 22:09:00) ?? >Negative 06/20/2011 NA [facility] CHEMISTRY A/G Ratio 1.4 0.7 - 1.6 06/20/2011 Normal [facility] CHEMISTRY Globulin 2.9 g/dL 2.0 - 4.0 06/20/2011 Normal [facility] CHEMISTRY B/C Ratio 13.0 6 - 25 06/20/2011 Normal [facility] CHEMISTRY AGAP 12.7 meq/L 10.0 - 20.0 06/20/2011 Normal [facility] CHEMISTRY Calcium Lvl 8.8 mg/dL 8.5 - 10.5 06/20/2011 Normal [facility] CHEMISTRY CO2 28.0 meq/L 24 - 32 06/20/2011 Normal [facility] CHEMISTRY Chloride Lvl 102.0 meq/L 95 - 109 06/20/2011 Normal [facility] CHEMISTRY Bili Total 0.2 mg/dL 0.2 - 1.3 06/20/2011 Normal [facility] CHEMISTRY Alk Phos 57.0 U/L 39 - 136 06/20/2011 Normal [facility] CHEMISTRY ALT 23.0 U/L 0 - 65 06/20/2011 Normal [facility] CHEMISTRY Potassium Lvl 3.7 meq/L 3.5 - 5.1 06/20/2011 Normal [facility] CHEMISTRY Sodium Lvl 139.0 meq/L 135 - 145 06/20/2011 Normal [facility] CHEMISTRY Creatinine Lvl 0.7 mg/dL 0.5 - 1.4 06/20/2011 Normal [facility] CHEMISTRY AST 14.0 U/L 0 - 37 06/20/2011 Normal [facility] CHEMISTRY Albumin Lvl 4.0 g/dL 3.5 - 5.0 06/20/2011 Normal [facility] CHEMISTRY Total Protein 6.9 g/dL 6.4 - 8.4 06/20/2011 Normal [facility] CHEMISTRY BUN 9.0 mg/dL 7 - 22 06/20/2011 Normal [facility] CHEMISTRY Glucose Lvl 77.0 mg/dL 06/20/2011 NA 1Interpretive Data: Reference Ranges : 0 - 7 days : 41 - 90 mg/dL7 days - 150 yrs : 70 - 99 mg/dL (fasting), based on the clinical recommendations of the [place] [employer]. [facility] CHEMISTRY Total CK 81.0 U/L 12 - 191 06/20/2011 Normal [facility] CHEMISTRY CK MB null 0.5 - 3.6 06/20/2011 Normal [facility] CHEMISTRY Troponin-I null 0.00 - 0.40 06/20/2011 Normal [facility] CHEMISTRY U Preg Negative (06/19/2011 22:09:00) ?? >Negative 06/20/2011 Normal [facility] CHEMISTRY CK MB Index null 0.0 - 2.5 06/20/2011 Normal [facility] HEMATOLOGY PTT 30.6 s 22.9 - 35.8 06/20/2011 Normal 4Interpretive Data: Heparin Therapeutic Range: 57 - 92 Seconds [facility] HEMATOLOGY PT 11.9 s 12.0 - 14.7 06/20/2011 LOW [facility] HEMATOLOGY INR 0.87 0.85 - 1.17 06/20/2011 Normal 3Interpretive Data: RECOMMENDED RANGES FOR PROTIME INR: 2.0-3.0 for most medical and surgical thromboembolic states. 2.5-3.5 for artificial heart valves and recurrent embolism.INR SHOULD BE USED ONLY FOR PATIENTS ON STABLE ANTICOAGULANT THERAPY. [facility] HEMATOLOGY Platelet 259.0 K/CMM 133 - 450 06/20/2011 Normal [facility] HEMATOLOGY RDW 14.4 % 11.5 - 14.5 06/20/2011 Normal [facility] HEMATOLOGY MCH 31.0 pg 27.0 - 31.0 06/20/2011 Normal [facility] HEMATOLOGY MCHC 34.2 g/dL 32.0 - 36.0 06/20/2011 Normal [facility] HEMATOLOGY MPV 8.4 fL 7.4 - 10.4 06/20/2011 Normal [facility] HEMATOLOGY WBC 6.0 K/CMM 3.7 - 10.4 06/20/2011 Normal [facility] HEMATOLOGY MCV 90.7 fL 81.0 - 99.0 06/20/2011 Normal [facility] HEMATOLOGY Hct 32.8 % 36.0 - 48.0 06/20/2011 LOW [facility] HEMATOLOGY Hgb 11.2 g/dL 12.0 - 16.0 06/20/2011 LOW [facility] HEMATOLOGY RBC 3.62 M/CMM 4.20 - 5.40 06/20/2011 LOW [facility] HEMATOLOGY Basophils # 0.0 K/CMM 0.0 - 0.2 06/20/2011 Normal [facility] HEMATOLOGY Eosinophils # 0.1 K/CMM 0.0 - 0.5 06/20/2011 Normal [facility] HEMATOLOGY Monocytes # 0.4 K/CMM 0.0 - 0.8 06/20/2011 Normal [facility] HEMATOLOGY Segs-Bands # 2.6 K/CMM 1.5 - 8.1 06/20/2011 Normal [facility] HEMATOLOGY Lymphocytes # 2.9 K/CMM 1.0 - 5.5 06/20/2011 Normal [facility] HEMATOLOGY Basophils 0.4 % 0.0 - 1.0 06/20/2011 Normal [facility] HEMATOLOGY Eosinophils 1.4 % 0.0 - 4.0 06/20/2011 Normal [facility] HEMATOLOGY Monocytes 7.4 % 2.0 - 12.0 06/20/2011 Normal [facility] HEMATOLOGY Lymphocytes 48.0 % 20.0 - 40.0 06/20/2011 HI [facility] HEMATOLOGY Segs 42.8 % 45.0 - 75.0 06/20/2011 LOW [facility] URINALYSIS UA Spec Grav 1.01 <<=1.030 06/20/2011 Normal [facility] URINALYSIS UA Ketones Negative *NA* (06/19/2011 22:09:00) ?? >Negative 06/20/2011 NA [facility] URINALYSIS UA pH 6.0 5.0 - 8.0 06/20/2011 Normal [facility] URINALYSIS UA Glucose Negative (06/19/2011 22:09:00) ?? >Negative 06/20/2011 Normal [facility] URINALYSIS UA Protein Negative (06/19/2011 22:09:00) ?? >Negative 06/20/2011 Normal [facility] URINALYSIS UA Color Yellow *NA* (06/19/2011 22:09:00) ?? >Yellow 06/20/2011 [facility] URINALYSIS UA Turbidity Clear (06/19/2011 22:09:00) ?? >Clear 06/20/2011 Normal [facility] URINALYSIS Micro? Performed (06/19/2011 22:09:00) ?? 06/20/2011 Normal [facility] URINALYSIS UA Sq Epi Few /LPF (06/19/2011 22:09:00) ?? >Few 06/20/2011 Normal [facility] URINALYSIS UA WBC 3-5 /HPF (06/19/2011 22:09:00) ?? >None Seen 06/20/2011 Normal [facility] URINALYSIS UA Blood Trace *ABN* (06/19/2011 22:09:00) ?? >Negative 06/20/2011 ABN [facility] URINALYSIS UA Urobilinogen 0.2 EU/dL 0.1 - 1.0 06/20/2011 Normal [facility] URINALYSIS UA Bili Negative *NA* (06/19/2011 22:09:00) ?? >Negative 06/20/2011 NA [facility] URINALYSIS UA Nitrite Negative (06/19/2011 22:09:00) ?? >Negative 06/20/2011 Normal [facility] URINALYSIS UA Leuk Est Small *ABN* (06/19/2011 22:09:00) ?? >Negative 06/20/2011 ABN [facility] URINALYSIS UA Bacteria Few /HPF (06/19/2011 22:09:00) ?? >None Seen 06/20/2011 Normal [facility] URINALYSIS UA RBC 3-5 /HPF *ABN* (06/19/2011 22:09:00) ?? >0 - 2 06/20/2011 ABN [facility] Microbiology Culture: Urine 06/20/2011 [facility] Vital Signs Vital Sign Value Date Comments Source Respitory Rate 18 12/24/2018 [facility] Heart Rate 100 12/24/2018 [facility] Systolic (mm Hg) 100 12/24/2018 [facility] Diastolic (mm Hg) 55 12/24/2018 [facility] Temperature Oral (F) 98.5 F 12/24/2018 [facility] Systolic (mm Hg) 112 12/24/2018 [facility] Diastolic (mm Hg) 71 12/24/2018 [facility] Heart Rate 97 12/24/2018 [facility] Respitory Rate 20 12/24/2018 [facility] Systolic (mm Hg) 109 12/24/2018 [facility] Diastolic (mm Hg) 67 12/24/2018 [facility] Respitory Rate 18 12/24/2018 [facility] Temperature Oral (F) 98.4 F 12/24/2018 [facility] Temperature Oral (F) 98.4 F 12/24/2018 [facility] Heart Rate 87 12/24/2018 [facility] Height 170.18 cm 12/23/2018 [facility] BMI Calculated 28.25 12/23/2018 [facility] Weight 81.818 12/23/2018 [facility] Respitory Rate 18 11/04/2016 [facility] Systolic (mm Hg) 122 11/04/2016 [facility] Diastolic (mm Hg) 71 11/04/2016 [facility] Heart Rate 90 11/04/2016 [facility] Temperature Oral (F) 97.9 F 11/04/2016 [facility] Heart Rate 81 11/04/2016 [facility] Temperature Oral (F) 97.9 F 11/04/2016 [facility] Systolic (mm Hg) 112 11/04/2016 [facility] Diastolic (mm Hg) 55 11/04/2016 [facility] Respitory Rate 18 11/04/2016 [facility] Respitory Rate 18 11/03/2016 [facility] Systolic (mm Hg) 128 11/03/2016 [facility] Diastolic (mm Hg) 76 11/03/2016 [facility] Heart Rate 97 11/03/2016 [facility] Temperature Oral (F) 98.5 F 11/03/2016 [facility] Weight 91.818 11/01/2016 [facility] Weight 91.591 10/31/2016 [facility] Height 154.94 cm 10/31/2016 [facility] BMI Calculated 38.15 10/31/2016 [facility] Systolic (mm Hg) 145 02/20/2015 [facility] Diastolic (mm Hg) 90 02/20/2015 [facility] Respitory Rate 18 02/20/2015 [facility] Heart Rate 78 02/20/2015 [facility] Temperature Oral (F) 98.6 F 02/20/2015 [facility] BMI Calculated 26.69 02/19/2015 [facility] Weight 75 02/19/2015 [facility] Systolic (mm Hg) 151 02/19/2015 [facility] Diastolic (mm Hg) 92 02/19/2015 [facility] Temperature Oral (F) 98.2 F 02/19/2015 [facility] Respitory Rate 16 02/19/2015 [facility] Heart Rate 70 02/19/2015 [facility] Height 167.64 cm 02/19/2015 [facility] Temperature Oral (F) 98.5 F 09/15/2013 [facility] Diastolic (mm Hg) 66 09/15/2013 [facility] Respitory Rate 16 09/15/2013 [facility] Systolic (mm Hg) 110 09/15/2013 [facility] Heart Rate 73 09/15/2013 [facility] Heart Rate 84 09/15/2013 [facility] Temperature Oral (F) 98.1 F 09/15/2013 [facility] Diastolic (mm Hg) 72 09/15/2013 [facility] Systolic (mm Hg) 118 09/15/2013 [facility] Respitory Rate 18 09/15/2013 [facility] Respitory Rate 16 09/14/2013 [facility] Diastolic (mm Hg) 69 09/14/2013 [facility] Systolic (mm Hg) 115 09/14/2013 [facility] Heart Rate 76 09/14/2013 [facility] Temperature Oral (F) 97.8 F 09/14/2013 [facility] Height 154.94 cm 09/11/2013 [facility] Weight 88.182 09/11/2013 [facility] Height 170.18 cm 03/30/2012 [facility] Weight 68.182 03/30/2012 [facility] Temperature Oral (F) 98.1 F 08/21/2011 [facility] Respitory Rate 18.0 08/21/2011 [facility] Heart Rate 65.0 08/21/2011 [facility] Diastolic (mm Hg) 68.0 08/21/2011 [facility] Systolic (mm Hg) 135.0 08/21/2011 [facility] Temperature Oral (F) 98.0 F 08/21/2011 [facility] Height 157.48 cm 08/21/2011 [facility] Diastolic (mm Hg) 74.0 08/21/2011 [facility] Systolic (mm Hg) 136.0 08/21/2011 [facility] Weight 63.636 08/21/2011 [facility] Heart Rate 61.0 08/21/2011 [facility] Respitory Rate 16.0 08/21/2011 [facility] Respitory Rate 16.0 06/20/2011 [facility] Systolic (mm Hg) 131.0 06/20/2011 [facility] Peripheral Pulse Rate 81.0 06/20/2011 [facility] Diastolic (mm Hg) 78.0 06/20/2011 [facility] Temperature Oral (F) 98.3 F 06/20/2011 [facility] Weight 63.636 06/20/2011 [facility] Height 167.64 cm 06/20/2011 [facility] Diastolic (mm Hg) 88.0 06/20/2011 [facility] Peripheral Pulse Rate 84.0 06/20/2011 [facility] Systolic (mm Hg) 128.0 06/20/2011 [facility] Temperature Oral (F) 98.4 F 06/20/2011 [facility] Respitory Rate 18.0 06/20/2011 [facility] Peripheral Pulse Rate 85.0 06/20/2011 [facility] Respitory Rate 16.0 06/20/2011 [facility] Systolic (mm Hg) 138.0 06/20/2011 [facility] Diastolic (mm Hg) 89.0 06/20/2011 [facility] Weight 68.182 06/20/2011 [facility] Height 167.64 cm 06/20/2011 [facility] Systolic (mm Hg) 124.0 06/20/2011 [facility] Diastolic (mm Hg) 92.0 06/20/2011 [facility] Respitory Rate 18.0 06/20/2011 [facility] Peripheral Pulse Rate 87.0 06/20/2011 [facility] Temperature Oral (F) 97.8 F 06/20/2011 [facility] Encounters Location Location Details Encounter Type Encounter Number Reason For Visit Attending Provider ADM Date DC Date Status Source [facility] OU [id number] SALEEM KAITLIN BEYM 02/19/2011 02/20/2011 Active [facility] Emergency [id number] CHEST PAIN WILLY NICOLE 03/17/2011 03/18/2011 Active [facility] Emergency [id number] LEFT SIDE WEAKNESS/NUMBNESS RALF CHAMPAGNE 06/19/2011 06/20/2011 Active [facility] [id number] LETTY KIRK 06/20/2011 06/20/2011 Active [facility] [id number] ANDREWS RUIZ 08/21/2011 08/21/2011 Active [facility] [id number] WAYNE DOMINIQUE 03/29/2012 03/29/2012 Active [facility] Inpatient [id number] VAGINAL DELIVERY DANNIELLE CHEN 09/10/2013 Active [facility] [id number] Reji Agudelo 02/19/2015 02/20/2015 [facility] Inpatient [id number] Dannielle Chen 11/01/2016 11/04/2016 [facility] Emergency [id number] Keith Andre 12/23/2018 12/25/2018 [facility] Procedures Procedure Code Date Perfomer Comments Source Breast augmentation<sup>1</sup> [id number] 2007 [facility] section - at term [id number] [facility]
--- OUTSIDE RECORDS SUMMARY | 2019-04-06 08:59 | XMS REPORT | CCD ---
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 Role Phone John Louie CP [phone] Orly Schroeder CP Dayron Brunner CP Unavailable Brandon Monroe CP Unavailable Lacy, Enedina CP Unavailable Dev Caballero CP [phone] Charly Olvera CP Unavailable GutierrezEvaristo CP [phone] Sharon Cooper CP Unavailable Roxanne Olivarez CP Unavailable MarkoSuman CP Unavailable Violet Garber CP Unavailable BullardChevy bundy CP Unavailable GutierrezMarco CP Unavailable SYSTEM, SYSTEM CP Unavailable Samantha Mac CP [phone] Zach Luevano CP Unavailable Arpit Fortune CP [...] based on the clinical recommendations of the [employer]. 2Interpretive Data: Drugs reported as [...] More Organisms Present. Gram Positive Organisms Only. Radisson Count Not Sign ificant PRELIMINARY REPORTS Preliminary Report No Growth; Holding
--- OUTSIDE RECORDS SUMMARY | 2019-04-06 09:00 | XMS REPORT | CCD ---
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 Active Medications Medication Instructions Start Date End Date Status Vicodin ES 7.5/750 1 tab, PO, Q4-6H, PRN, 15 tab, for 08/21/2011 08/25/2011 Ordered oral tablet Pain, Substitution Allowed, Maintenance clindamycin 300 mg 300 mg, 1 cap, PO, QID, 40 cap, 08/21/2011 ?? Ordered oral capsule Substitution Allowed Augmentin 875 mg 1 tab, PO, Q12H, 20 tab, 08/21/2011 08/31/2011 Ordered oral tablet Substitution Allowed, Maintenance, TAB ceftriaxone 1 gm, Route: IM, Drug form: 08/21/2011 08/21/2011 Completed PDR/INJ, ONCE, Priority: STAT, Start date: 08/21/11 15:03:00, Stop date: 08/21/11 15:03:00 Vital Signs Most recent to oldest [Reference Range]: 1 2 Height 157.48 cm (08/21/2011 14:19:00) ? Temperature Oral [96.4-99.1 DegF] 98.1 DegF (08/21/2011 15:58:00) ?? 98.0 DegF (08/21/2011 14:19:00) ?? Systolic Blood Pressure [90-140 mmHg] 135 mmHg (08/21/2011 15:58:00) ?? 136 mmHg (08/21/2011 14:19:00) ?? Diastolic Blood Pressure [60-90 mmHg] 68 mmHg (08/21/2011 15:58:00) ?? 74 mmHg (08/21/2011 14:19:00) ?? Respiratory Rate [14-20 BRMIN] 18 BRMIN (08/21/2011 15:58:00) ?? 16 BRMIN (08/21/2011 14:19:00) ?? Peripheral Pulse Rate [60-100 bpm] 65 bpm (08/21/2011 15:58:00) ?? 61 bpm (08/21/2011 14:19:00) ?? Weight 63.636 kg (08/21/2011 14:19:00) ?
--- OUTSIDE RECORDS SUMMARY | 2019-04-06 09:00 | XMS REPORT | Summary of Care ---
Author Author [facility] Organization [facility] Address Unknown Phone Unavailable Encounter ADEBAYO Spencer(FLORECITA) [id number] Date(s): 11/01/16 - 11/04/[address] [address]- Discharge Disposition: Home or Self Care Attending Physician: Dnanielle Chen MD Admitting Physician: Dannielle Chen MD Vital Signs 1 2 3 Most recent to oldest [Reference Range]: 154.94 cm (10/31/16 1:08 PM) Height 97.9 DegF (11/04/16 8:00 AM) 97.9 DegF (11/04/16 12:00 AM) 98.5 DegF (11/03/16 4:00 PM) Temperature Oral [96.4-99.1 DegF] 122/71 mmHg (11/04/16 8:00 AM) 112/55 mmHg (11/04/16 12:00 AM) 128/76 mmHg (11/03/16 4:00 PM) Blood Pressure [90-140/60-90 mmHg] 18 BRMIN (11/04/16 8:00 AM) 18 BRMIN (11/04/16 12:00 AM) 18 BRMIN (11/03/16 4:00 PM) Respiratory Rate [14-20 BRMIN] 90 bpm (11/04/16 8:00 AM) 81 bpm (11/04/16 12:00 AM) 97 bpm (11/03/16 4:00 PM) Peripheral Pulse Rate [60-100 bpm] 91.818 kg (11/01/16 6:10 AM) 91.591 kg (10/31/16 1:08 PM) Weight 38.15 m2 (10/31/16 1:08 PM) Body Mass Index Problem List Condition Effective Dates Status Health Status Informant delivery - 09/12/13 Active delivered(Confirmed) 11/01/16 Active section(Confirmed) Headaches, Resolved cluster(Confirmed) Fall(Confirmed)1 Resolved Previous Resolved section(Confirmed) Polyhydramnios in Active third trimester(Confirmed) 09/12/13 Active care(Confirmed) 11/01/16 Active care(Confirmed) (Confirmed) 12/06/12 - 09/12/13 Resolved (Confirmed) 10/31/16 - 11/01/16 Resolved 110/23 on R gluteal area no bruising/swelling noted Allergies, Adverse Reactions, Alerts Substance Reaction Severity Status NKDA Active Medications acetaminophen 1,000 mg, 2 tab, Route: PO, Drug form: TAB, Q6H, Dosing Weight 91.818, kg, Prior ity: Routine, Start date: 11/01/16 14:30:00 [employer], Duration: 24 hr, Stop date: 8:30:00 [employer] Notes: Max acetaminophen 4000 mg/day (4 gm/day). (Same as: Tylenol Extra Streng th) Start Date: 11/01/16 Stop Date: 11/02/16 Status: Completed acetaminophen 650 mg, 2 tab, Route: PO, Drug form: TAB, Q4H, Dosing Weight 91.818, kg, PRN Oth er -See Comment, Start date: 11/01/16 10:21:00 [employer], Duration: 30 day, Stop date: 12/01/16 10:20:00 [employer] Notes: Do not exceed 4 gm/day. (Same as: Tylenol) Start Date: 11/01/16 Stop Date: 11/01/16 Status: Deleted acetaminophen (ANES) Route: IV, Drug form: INJ, ONCE, Stop date: 11/01/16 9:02:00 [employer] Start Date: 11/01/16 Stop Date: 11/01/16 Status: Completed acetaminophen-codeine 300 mg-15 mg oral tablet 1 tab, PO, Q4H, PRN Pain, # 24 tab, 0 Refill(s) Start Date: 11/04/16 Stop Date: 11/27/16 Status: Ordered acetaminophen-hydrocodone 325 mg-10 mg oral tablet 1 tab, Route: PO, Drug Form: TAB, Dosing Weight 91.818, kg, Q4H, PRN Pain Score 7-10, Start date: 11/01/16 10:21:00 [employer], Duration: 30 day, Stop date: 12/01/16 1 0:20:00 [employer] Notes: Do not exceed 4gm/day of acetaminophen. (Same as: [place] 325/10) Start Date: 11/01/16 Stop Date: 11/04/16 Status: Discontinued acetaminophen-hydrocodone 325 mg-5 mg oral tablet 1 tab, Route: PO, Drug Form: TAB, Dosing Weight 91.818, kg, Q4H, PRN Pain Score 4-6, Start date: 11/01/16 10:21:00 [employer], Duration: 30 day, Stop date: 12/01/16 10 :20:00 [employer] Notes: (Same as: [place] 325/5) Do not exceed 4gm/day of acetaminophen. Start Date: 11/01/16 Stop Date: 11/04/16 Status: Discontinued ANES flumazenil 0.2 mg, 2 mL, Route: IVP, Drug form: INJ, PRN, Dosing Weight 91.818, kg, PRN Kyrie zodiazepine Reversal, Initial dose, Start date: 11/01/16 8:36:00 [employer], Duration: 30 day, Stop date: 12/01/16 8:35:00 [employer] Notes: (Same as: Romazicon) Start Date: 11/01/16 Stop Date: 11/01/16 Status: Discontinued ANES naloxone 0.4 mg, 1 mL, Route: IVP, Drug form: INJ, Q2MIN, Dosing Weight 91.818, kg, PRN N arcotic Reversal, Start date: 11/01/16 8:36:00 [employer], Duration: 8 doses or times, Stop date: Limited # of times Notes: Same as Narcan Start Date: 11/01/16 Stop Date: 11/01/16 Status: Discontinued ANES ondansetron 4 mg, 2 mL, Route: IVP, Drug form: INJ, ONCE, Dosing Weight 91.818, kg, PRN Naus ea & Vomiting, Start date: 11/01/16 8:36:00 [employer] Notes: (Same as: Zofran) MEDICATION WASTE Product Size: 4 mgProduct Was maryam: ___ mg Start Date: 11/01/16 Stop Date: 11/01/16 Status: Discontinued ANES promethazine + sodium chloride 0.9% INJ 50 mL 6.25 mg, 0.25 mL, Route: IVPB, ONCE, Dosing Weight 91.818, kg, PRN Nausea & Vomiting, Start date: 11/01/16 8:36:00 [employer] Notes: Do not give IV push. (Same as: Phenergan) Start Date: 11/01/16 Stop Date: 11/01/16 Status: Discontinued bisacodyl 10 mg, 1 supp, Route: KS, Drug form: SUPP, PRN, Dosing Weight 91.818, kg, PRN Ot her -See Comment, Start date: 11/01/16 10:21:00 [employer], Duration: 30 day, Stop date : 12/01/16 10:20:00 [employer] Notes: (Same As: Dulcolax, Bisco-Lax) Start Date: 11/01/16 Stop Date: 11/04/16 Status: Discontinued bisacodyl 15 mg, 3 tab, Route: PO, Drug form: ECTAB, Daily, Dosing Weight 91.818, kg, PRN Other -See Comment, Start date: 11/01/16 10:21:00 [employer], Duration: 30 day, Stop da te: 12/01/16 10:20:00 [employer] Notes: (Same As: Dulcolax, Correctol) (Do Not Crush) "Do Not Crush" Start Date: 11/01/16 Stop Date: 11/04/16 Status: Discontinued bupivacaine (ANES) Route: INTRATHECAL, Drug Form: INJ, ONCE, Stop date: 11/01/16 9:26:00 [employer] Start Date: 11/01/16 Stop Date: 11/01/16 Status: Completed ceFAZolin 2 gm, 100 mL, Route: IVPB, Drug form: INJ, ONCALL, Dosing Weight 91.591, kg, Sta rt date: 11/01/16 6:00:00 [employer], Duration: 1 doses or times Notes: Same as: Ancef Start Date: 11/01/16 Stop Date: 11/01/16 Status: Completed ceFAZolin (ANES) Route: IV, Drug form: INJ, ONCE, Stop date: 11/01/16 8:03:00 [employer] Start Date: 11/01/16 Stop Date: 11/01/16 Status: Completed citric acid-sodium citrate 30 mL, Route: PO, Drug Form: SOLN, Dosing Weight 91.591, kg, ONCE, Start date: 0 11/01/16 5:48:00 [employer], Duration: 1 doses or times, Stop date: 11/01/16 5:48:00 [employer] Notes: (Same As: Bicitra, Cytra-2) Sodium citrate-citric acid (500-334 mg/5 mL): 1 mL contains sodium 1 mEq/mL and bicarbonate 1 mEq/mL Start Date: 11/01/16 Stop Date: 11/01/16 Status: Completed Colace 100 mg oral capsule 100 mg=1 cap, PO, BID, PRN Constipation, # 20 cap, 0 Refill(s) Start Date: 11/04/16 Status: Ordered Colace 100 mg oral capsule 100 mg, 1 cap, Route: PO, Drug form: CAP, BID, Dosing Weight 91.818, kg, PRN Con stipation, Start date: 11/03/16 16:14:00 [employer], Duration: 30 day, Stop date: 12/03 16:13:00 [employer] Notes: (Same as: Colace) (Do Not Crush) Start Date: 11/03/16 Stop Date: 11/04/16 Status: Discontinued diphenhydrAMINE 12.5 mg, 5 mL, Route: PO, Drug form: LIQ, Q6H, Dosing Weight 91.818, kg, PRN Itc neo, Start date: 11/01/16 8:44:00 [employer], Duration: 30 day, Stop date: 12/01/16 8: 43:00 [employer] Notes: (Same as: Benadryl) Start Date: 11/01/16 Stop Date: 11/04/16 Status: Discontinued diphenhydrAMINE (ANES) Route: IV, Drug form: INJ, ONCE, Stop date: 11/01/16 8:50:00 [employer] Start Date: 11/01/16 Stop Date: 11/01/16 Status: Completed diphtheria/pertussis, acel/tetanus adult 2 units-15.5 mcg-5 units/0.5 mL intramu scular suspension 0.5 mL, Route: IM, Drug Form: SUSP, Dosing Weight 91.818, kg, ONCALL, Start date : 11/01/16 11:00:00 [employer], Duration: 1 doses or times Notes: (Tdap ) For Adolecent and Adult use For IM Use. Same as: Adacel (Tdap) Start Date: 11/01/16 Stop Date: 11/04/16 Status: Discontinued ePHEDrine (ANES) Route: IV, Drug form: INJ, ONCE, Stop date: 11/01/16 9:26:00 [employer] Start Date: 11/01/16 Stop Date: 11/01/16 Status: Completed fentaNYL (ANES) Route: IV, Drug form: INJ, ONCE, Stop date: 11/01/16 8:58:00 [employer] Start Date: 11/01/16 Stop Date: 11/01/16 Status: Completed Hemocyte-F oral tablet See Instructions, tab PO twice a day, # 60 tab, 0 Refill(s) Start Date: 11/04/16 Status: Ordered ibuprofen 600 mg, 1 tab, Route: PO, Drug form: TAB, Q6H, Dosing Weight 91.818, kg, Start d ate: 11/01/16 15:00:00 [employer], Duration: 30 day, Stop date: 12/01/16 9:00:00 [employer] Notes: (Same as: Motrin)"Do Not Crush" Take with food. Start Date: 11/01/16 Stop Date: 11/04/16 Status: Discontinued ketOROLAC 30 mg, 1 mL, Route: IVP, Drug form: INJ, Q6H, Dosing Weight 91.818, kg, PRN Pain Score 4-6, Start date: 11/01/16 14:30:00 [employer], Duration: 24 hr, Stop date: 11/02 14:29:00 [employer] Notes: (Same as:Toradol) IV bolus must be given >15 seconds. Give IM administration slowly and deeply into the muscle.Not for use > 4 days MEDICATION WASTE Product Size: 30 mgProduct Wasted: ___ mg Start Date: 11/01/16 Stop Date: 11/01/16 Status: Discontinued ketOROLAC (ANES) IV, ONCE Start Date: 11/01/16 Stop Date: 11/01/16 Status: Completed ketOROLAC 30 mg/mL injectable solution 30 mg, 1 mL, Route: IM, Drug form: INJ, Q6H, Dosing Weight 91.818, kg, PRN Pain Score 4-6, Start date: 11/01/16 19:36:00 [employer], Duration: 2 day, Stop date: 19:35:00 [employer] Notes: (Same as:Toradol) IV bolus must be given >15 seconds. Give IM administration slowly and deeply into the muscle.Not for use > 4 days MEDICATION WASTE Product Size: 30 mgProduct Wasted: ___ mg Start Date: 11/01/16 Stop Date: 11/03/16 Status: Completed ketOROLAC 30 mg/mL injectable solution 30 mg, 1 mL, Route: IM, Drug form: INJ, ONCE, Dosing Weight 91.818, kg, PRN Pain 4-6/Temp > 100.4 F, Start date: 11/01/16 16:21:00 [employer], Duration: 1 doses or times, Stop date: Limited # of times Notes: (Same as:Toradol) IV bolus must be given >15 seconds. Give IM administration slowly and deeply into the muscle.Not for use > 4 days MEDICATION WASTE Product Size: 30 mgProduct Wasted: ___ mg Start Date: 11/01/16 Stop Date: 11/01/16 Status: Completed Lactated Ringers (Bolus) IV 1,000 mL, 1,000 ml/hr, Infuse Over: 1 hr, Route: IV, 1,000, Drug form: INJ, ONCE , Dosing Weight 91.591 kg, Start date: 11/01/16 5:48:00 [employer], Stop date: 11/01/16 5:48:00 [employer] Start Date: 11/01/16 Stop Date: 11/01/16 Status: Completed Lactated Ringers 1,000 mL 1,000 mL, Rate: 100 ml/hr, Infuse over: 10 hr, Route: IV, Dosing Weight 91.818 k g, Total Volume: 1,000, Start date: 11/01/16 10:21:00 [employer], Duration: 30 day, Sto p date: 12/01/16 10:20:00 [employer] Start Date: 11/01/16 Stop Date: 11/04/16 Status: Discontinued Lactated Ringers 1,000 mL 1,000 mL, Rate: 125 ml/hr, Infuse over: 8 hr, Route: IV, Dosing Weight 91.591 kg , Total Volume: 1,000, Start date: 11/01/16 5:48:00 [employer], Duration: 30 day, Stop date: 12/01/16 5:47:00 [employer] Start Date: 11/01/16 Stop Date: 11/01/16 Status: Discontinued Lactated Ringers Injection IV 1000 mL 1,000 mL, Rate: 125 ml/hr, Infuse over: 8 hr, Route: IV, Dosing Weight 91.818 kg , Total Volume: 1,000, Start date: 11/01/16 8:36:00 [employer], Duration: 30 day, Stop date: 12/01/16 8:35:00 [employer] Start Date: 11/01/16 Stop Date: 11/01/16 Status: Discontinued lanolin topical cream 1 appl, Route: TOP, PRN, Drug form: OINT, PRN Other -See Comment, Start date: 10:21:00 [employer], Duration: 30 day, Stop date: 12/01/16 10:20:00 [employer] Notes: (Same as:Lanolin) Start Date: 11/01/16 Stop Date: 11/04/16 Status: Discontinued LR 1000 mL INJ (ANES) Route: IV, Total Volume: 1,000, Start date: 11/01/16 7:28:00 [employer], Stop date: 8:28:00 [employer] Start Date: 11/01/16 Stop Date: 11/01/16 Status: Completed metoclopramide 10 mg, 2 mL, Route: IVP, Drug form: INJ, Q6H, Dosing Weight 91.591, kg, PRN Naus ea & Vomiting, Start date: 11/01/16 5:48:00 [employer], Duration: 30 day, Stop date: 12/01/16 5:47:00 [employer] Notes: (Same as: Reglan) Start Date: 11/01/16 Stop Date: 11/01/16 Status: Discontinued misoprostol 1,000 microgram, 5 tab, Route: KS, Drug form: TAB, ONCALL, Dosing Weight 91.591, kg, Start date: 11/01/16 6:00:00 [employer], Duration: 30 day, Stop date: 12/01/16 5:5 9:00 [employer] Notes: (Same as:Cytotec) Take with food Start Date: 11/01/16 Stop Date: 11/01/16 Status: Discontinued morphine Sulfate 2 mg, 1 mL, Route: IVP, Drug form: INJ, Q2H, Dosing Weight 91.591, kg, PRN Pain Score 7-10, Start date: 11/01/16 5:48:00 [employer], Duration: 30 day, Stop date: 12/01 5:47:00 [employer] Notes: (Same as:MORPhine Sulfate) Start Date: 11/01/16 Stop Date: 11/01/16 Status: Discontinued morphine Sulfate (ANES) Route: INTRATHECAL, Drug form: SOLN, ONCE, Stop date: 11/01/16 9:26:00 [employer] Start Date: 11/01/16 Stop Date: 11/01/16 Status: Completed morphine Sulfate (ANES) Route: IV, Drug form: SOLN, ONCE, Stop date: 11/01/16 8:50:00 [employer] Start Date: 11/01/16 Stop Date: 11/01/16 Status: Completed Motrin 800 mg oral tablet 800 mg=1 tab, PO, Q8H, PRN Pain, Take with food, # 30 tab, 0 Refill(s) Start Date: 11/04/16 Stop Date: 11/04/16 Status: Completed naloxone 0.1 mg, 0.25 mL, Route: SUB-Q, Drug form: INJ, Q6H, Dosing Weight 91.818, kg, KS N Itching, Start date: 11/01/16 8:44:00 [employer], Duration: 24 hr, Stop date: 7 8:43:00 [employer] Notes: Same as Narcan Start Date: 11/01/16 Stop Date: 11/02/16 Status: Completed naloxone 0.4 mg, 1 mL, Route: IVP, Drug form: INJ, ONCALL, Dosing Weight 91.818, kg, Star t date: 11/01/16 9:00:00 [employer], Duration: 24 hr, Stop date: 11/02/16 8:59:00 [employer] Notes: Same as Narcan Start Date: 11/01/16 Stop Date: 11/04/16 Status: Discontinued ondansetron 4 mg, 2 mL, Route: IVP, Drug form: INJ, Q6H, Dosing Weight 91.818, kg, PRN Nause a & Vomiting, Start date: 11/01/16 8:44:00 [employer], Duration: 24 hr, Stop date: 11/02/16 8:43:00 [employer] Notes: (Same as: Zofran) MEDICATION WASTE Product Size: 4 mgProduct Was maryam: ___ mg Start Date: 11/01/16 Stop Date: 11/02/16 Status: Completed ondansetron 4 mg, 2 mL, Route: IVP, Drug form: INJ, Q8H, Dosing Weight 91.591, kg, PRN Nause a & Vomiting, Start date: 11/01/16 5:48:00 [employer], Duration: 30 day, Stop date: 12/01/16 5:47:00 [employer] Notes: (Same as: Zofran) MEDICATION WASTE Product Size: 4 mgProduct Was maryam: ___ mg Start Date: 11/01/16 Stop Date: 11/01/16 Status: Discontinued ondansetron (ANES) Route: IV, Drug form: INJ, ONCE, Stop date: 11/01/16 8:48:00 [employer] Start Date: 11/01/16 Stop Date: 11/01/16 Status: Completed oxytocin (ANES) (ANES) Route: IV, Drug form: SOLN, Start date: 11/01/16 8:08:00 [employer], Stop date: 7 9:08:00 [employer] Start Date: 11/01/16 Stop Date: 11/01/16 Status: Completed oxytocin 30 units in LR 500 mL 30 unit 30 unit, 500 mL, Rate: 42 ml/hr, Infuse over: 11.9 hr, Dosing Weight 91.818, kg, Route: IV, Total Volume: 500 mL, Start date: 11/01/16 10:21:00 [employer], Duration: 1 doses or times, Stop date: 11/01/16 22:14:00 [employer], Replace Every: 11.9 hr Notes: Pitocin 30 units in LR 500 mL Start Date: 11/01/16 Stop Date: 11/01/16 Status: Completed oxytocin 30 units in LR 500 mL 30 unit 30 unit, 500 mL, Rate: 42 ml/hr, Infuse over: 11.9 hr, Dosing Weight 91.591, kg, Route: IV, Total Volume: 500 mL, Start date: 11/01/16 5:48:00 [employer], Duration: 1 doses or times, Stop date: 11/01/16 17:41:00 [employer], Replace Every: 11.9 hr Notes: Pitocin 30 units in LR 500 mL Start Date: 11/01/16 Stop Date: 11/01/16 Status: Discontinued Periactin 4 mg, 1 tab, Route: PO, Drug form: TAB, TID, Dosing Weight 91.818, kg, PRN Itchi ng, Start date: 11/01/16 8:44:00 [employer], Duration: 30 day, Stop date: 12/01/16 8:43 :00 [employer] Notes: (Same As: Periactin) Start Date: 11/01/16 Stop Date: 11/04/16 Status: Discontinued phenylephrine (ANES) Route: IV, Drug form: INJ, ONCE, Stop date: 11/01/16 9:26:00 [employer] Start Date: 11/01/16 Stop Date: 11/01/16 Status: Completed Multivitamins oral tablet 1 tab, Route: PO, Drug Form: TAB, Dosing Weight 91.818, kg, Daily, Start date: 0 11/02/16 9:00:00 [employer], Duration: 30 day, Stop date: 12/01/16 9:00:00 [employer] Start Date: 11/02/16 Stop Date: 11/04/16 Status: Discontinued Saline Flush 0.9% 10 ml, Route: IVP, Drug Form: INJ, Dosing Weight 91.818, kg, Q12H, Start date: 0 11/01/16 21:00:00 [employer], Duration: 30 day, Stop date: 12/01/16 9:00:00 [employer] Notes: (Same as: BD Posiflush) Start Date: 11/01/16 Stop Date: 11/04/16 Status: Discontinued Saline Flush 0.9% 10 ml, Route: IVP, Drug Form: INJ, Dosing Weight 91.818, kg, PRN, PRN Line Flush , Start date: 11/01/16 10:21:00 [employer], Duration: 30 day, Stop date: 12/01/16 10:20 :00 [employer] Notes: (Same as: BD Posiflush) Start Date: 11/01/16 Stop Date: 11/04/16 Status: Discontinued simethicone 160 mg, 2 tab, Route: PO, Drug form: CHEWTAB, Q8H, Dosing Weight 91.818, kg, PRN Gas, Start date: 11/01/16 10:21:00 [employer], Duration: 30 day, Stop date: 12/01/16 1 0:20:00 [employer] Notes: (Same as: Mylicon) Start Date: 11/01/16 Stop Date: 11/04/16 Status: Discontinued terbutaline 0.25 mg, 0.25 mL, Route: SUB-Q, Drug form: INJ, ONCALL, Dosing Weight 91.591, kg , PRN Other -See Comment, Start date: 11/01/16 5:48:00 [employer], Duration: 1 doses or times, Stop date: Limited # of times Notes: DO NOT USE IN DROP TESTER AREA(Same As: Elvin) Start Date: 11/01/16 Stop Date: 11/01/16 Status: Discontinued Tums 500 mg oral tablet, chewable 500 mg=1 tab, CHEW, TID, 0 Refill(s) Start Date: 10/31/16 Status: Ordered Tylenol 650 mg, 2 tab, Route: PO, Drug form: TAB, Q4H, Dosing Weight 91.818, kg, PRN Oth er -See Comment, Start date: 11/02/16 14:30:00 [employer], Duration: 30 day, Stop date: 12/02/16 14:29:00 [employer] Notes: Do not exceed 4 gm/day. (Same as: Tylenol) Start Date: 11/02/16 Stop Date: 11/04/16 Status: Discontinued zolpidem 5 mg, 1 tab, Route: PO, Drug form: TAB, Bedtime, Dosing Weight 91.818, kg, PRN I nsomnia, Start date: 11/01/16 10:21:00 [employer], Duration: 30 day, Stop date: 7 10:20:00 [employer] Notes: (Same As: Tierra) Start Date: 11/01/16 Stop Date: 11/04/16 Status: Discontinued Results BLOOD BANK RESULTS 1 2 3 Most recent to oldest [Reference Range]: A POS *Unknown* (10/31/16 1:32 PM) ABO/Rh Negative (10/31/16 1:32 PM) Antibody Scrn See Note 1 (10/31/16 1:32 PM) Rhig Reqd 1Result Comment: 10/31/2016 15:00 GEMONROY This patient is not a candidate for Rh(O)D immune globulin. IMMUNOLOGY 1 2 3 Most recent to oldest [Reference Range]: Non Reactive (10/31/16 1:32 PM) RPR [Non Reactive] Negative *NA* (10/31/16 1:32 PM) Hep Bs Ag [Negative] HEMATOLOGY 1 2 3 Most recent to oldest [Reference Range]: 8.8 K/CMM (11/04/16 7:04 AM) 10.6 K/CMM *HI* (10/31/16 1:32 PM) WBC [3.7-10.4 K/CMM] 3.62 M/CMM *LOW* (11/04/16 7:04 AM) 4.29 M/CMM (10/31/16 1:32 PM) RBC [4.20-5.40 M/CMM] 9.2 g/dL *LOW* (11/04/16 7:04 AM) 8.9 g/dL *LOW* (11/02/16 5:42 AM) 11.0 g/dL *LOW* (10/31/16 1:32 PM) Hgb [12.0-16.0 g/dL] 28.3 % *LOW* (11/04/16 7:04 AM) 26.9 % *LOW* (11/02/16 5:42 AM) 33.3 % *LOW* (10/31/16 1:32 PM) Hct [36.0-48.0 %] 78.3 fL *LOW* (11/04/16 7:04 AM) 77.7 fL *LOW* (10/31/16 1:32 PM) MCV [80.0-98.0 fL] 25.4 pg *LOW* (11/04/16 7:04 AM) 25.6 pg *LOW* (10/31/16 1:32 PM) MCH [27.0-31.0 pg] 32.4 g/dL (11/04/16 7:04 AM) 32.9 g/dL (10/31/16 1:32 PM) MCHC [32.0-36.0 g/dL] 16.6 % *HI* (11/04/16 7:04 AM) 16.2 % *HI* (10/31/16 1:32 PM) RDW [11.5-14.5 %] 240 K/CMM (11/04/16 7:04 AM) 219 K/CMM (10/31/16 1:32 PM) Platelet [133-450 K/CMM] 8.5 fL (11/04/16 7:04 AM) 9.3 fL (10/31/16 1:32 PM) MPV [7.4-10.4 fL] 74.3 % (10/31/16 1:32 PM) Segs [45.0-75.0 %] 15.9 % *LOW* (10/31/16 1:32 PM) Lymphocytes [20.0-40.0 %] 8.0 % (10/31/16 1:32 PM) Monocytes [2.0-12.0 %] 1.5 % (10/31/16 1:32 PM) Eosinophils [0.0-4.0 %] 0.3 % (10/31/16 1:32 PM) Basophils [0.0-1.0 %] 7.9 K/CMM (10/31/16 1:32 PM) Segs-Bands # [1.5-8.1 K/CMM] 1.7 K/CMM (10/31/16 1:32 PM) Lymphocytes # [1.0-5.5 K/CMM] 0.9 K/CMM *HI* (10/31/16 1:32 PM) Monocytes # [0.0-0.8 K/CMM] 0.2 K/CMM (10/31/16 1:32 PM) Eosinophils # [0.0-0.5 K/CMM] 1+ *ABN* (10/31/16 1:32 PM) Microcyte [None Seen] Immunizations No data available for this section Procedures Procedure Date Related Diagnosis Body Site Breast augmentation1 section - at term 09185 Social History Social History Type Response Smoking Status Former smoker; Type: Cigarettes; Tobacco use per day: 2; Number of years: 6; Previous treatment: None; Ready to change: No; Concerns about tobacco use in household: No; Exposure to Tobacco Smoke None; Cigarette Smoking Last 365 Days Yes; Reg Smoking Cessation Counseling No Assessment and Plan Extracted from: Title: Clinical Document Author: Dannielle Chen MD Date: 11/04/16 No complaints, tolerating diet, ambulating, passed gas Vitals and Temp: VitalsTmp(F)[id number] 11/04 00:[id number]------ 11/03 16:[id number]------ 11/03 08:[id number]------ 11/03 00:[id number]/6118------ 11/02 20:[id number]------ 24 Hr Tmax: 98.5F (36.94c) at 11/03 16:00Vital Signs are the last 5 in the past 48 hours. abd soft CDI Uterus is contracted nl lochia no CCE, Plan - DC home FU - 2 weeks condition fair regular diet pelvic rest Dx - S/P Ceasarian Section Iron supplements Extracted from: Title: Clinical Document Author: Dannielle Chen MD Date: 11/01/16 PROCEDURE Repeat Cesarian Section and cord Blood Collection SURGEON Dannielle Chen MD Indication Polyhydroamnion Previous CS ANESTHESIA Spinal. COMPLICATIONS None ESTIMATED BLOOD LOSS 800 mL FINDINGS Healthy infant, intact placenta. DISPOSITION To recovery room, stable. PROCEDURE IN DETAIL The patient was taken to the OR. Spinal anesthesia was applied. When anesthesia was found to be adequate, she was placed in the supine position, scrubbed and draped for an abdominal procedure. The abdominal cavity was entered without difficulty through a previous scar. A bladder flap was created and hysterotomy was done in transverse fashion. The baby's head was easily delivered. Oropharynx was suctioned. The baby's body easily followed. The cord was clamped and soon cut. The baby was given to the elaina nurse who was corporate vp advertising [employer] online in the OR. After the baby was delivered the cord was clamped x 2 and transected.The baby was handed to the nurse corporate v[employer] advertising [employer] online. An eight centimeter cord segment was then clamped and given to the LnD nurse. This segment was used for cord gasses collection and was then made available for tissue harvesting of stem cells as needed. The remaining cord that was still attached to the placenta was sterilized and the more prominent vein was entered using the collection kit needle. Cord blood was collected according to the manufacturers guidlines. The needle was then cut . The collection tubing was ligated twice and the specimen was handed to the LnD nurse [employer]. The proper forms were filled after the identity of the patient identity was matched to all specimens obtained and the collection kit.. The speciemn were placed in the kit and the cord blood collection agency was notified. The placenta was then extracted from the uterine cavity. The uterus was exteriorized. It was cleaned of any remaining placental fragments or membranes, closed in 2 layers using 0 chromic, with the one layer imbricating the other. Additional interrupted stitches were placed as necessary to promote hemostasis. We then proceeded to returned the uterus to the abdominal cavity. Hemostasis was confirmed again. The gutters were irrigated and cleaned. The abdominal wall was then closed in layers using 2-0 chromic for the peritoneum in a running fashion, 0 Vicryl for the fascia in a running fashion. The dermal layer was irrigated. Hemostasis was confirmed, then closed with 3-0 Vicryl in a running fashion as well. After hemostasis was found to be perfect, the skin was closed with a 3-0 monocryl sub Q stich. Wound was dressed and patient was taken to recovery in stable condition. She tolerated the procedure well. The counts were correct x4. Extracted from: Title: Clinical Document Author: Dannielle Chen MD Date: 11/01/16 History and Physical NAME: SKYLER VERAS : 10/26/1984 Age: 32 PHONE: (H) [phone] (O) [phone] FATHER OF BABY: Zeyad OSPINA PHONE: [phone] EMERGENCY CONTACT: ISIDRA KING [phone] AGE: 32 : 2 PARA: 1 0 0 1 PHYSICIAN: KAREN LMP: 02/12/16 EMILIA by LMP: 11/18/16 EMILIA by US11/17/16 Final EMILIA: 11/18/16 GESTATIONAL AGE ON 10/29/2016 IS: 37 wks + 1 days PROBLEM LIST: PREVIOUS CS POLYHYDROAMNION - ADAM=31 cm BIG BABY - 90% LABS: Hemoglogin: 04/27/16 - 12.9 09/14/16 - 10.9 Hematocrit: 04/27/16 - 41.2 09/14/16 - 32.6 Platelets: 04/27/16 - 304 09/14/16 - 277 HBSA04/27/16 - Negative Blood Type: 04/27/16 - A RH: 04/27/16 - Positive Rubella: 04/27/16 - 1.37 GBS: Glucola: Ab Screen: 04/27/16 - Negative Chl: 03/16/16 - Negative 10/21/16 - Negative GC: 03/16/16 - Negative 10/21/16 - Negative RPR: 04/27/16 - Non Reactive 09/14/16 - Non Reactive HIV: 04/27/16 - Non Reactive 09/14/16 - Non Reactive Urine Cult: 04/27/16 - Final report TSH: 04/27/16 - 1.080 MSAFP: 05/27/16 - *Screen Negative* ALLERGIES: NKDA PRESENT MEDICATIONS: 28-0.8 mg tablet PAST MEDICAL HX: None SURGICAL HX: Breast Augmentation-200709/12/2013 Primary OB HX: S WGHT. GA TYPE OF DELIVERY _ __ 09/12/13 F 8 lbs 1 oz 40 Primary GYNECOLOGICAL HISTORY: Abnormal Pap Smear - No Fibroids of Uterus - No Ovarian Cysts - No STD's - No Urinary Tract Infections-No SOCIAL HX: Tobacco Use - denies smoking Alcohol Use - denies drinking Drug Use - denies use of street drugs FAMILY HISTORY: GENETIC HISTORY: Negative INFECTION HISTORY: High Risk HIV - No High Risk Hepatitis - NoTB - No HSV - No STD - No Viral /Rash - No Other - No GENERAL INFORMATION: Sex of Baby : Girl Hospital of Delivery: [facility] Sales Incentive Analyst: Rogerio Syed Type of Anesthesia: Epidural Blood Products: Agrees to receive blood products as indicated Childbirth Class: Will Participate Breast Feeding Class: Will not participate Family in Labor Rm: FOC and mother/mother in law Cord Blood Collection: will bring collection kit to L unit and with family cord Circumcision: No and it's a girl Placental Location: Anterior EDUCATION/COUNSELING: FIRST TRIMESTER: HIV and Other Routine Tests- Discussed, Risk Factors- Discussed, Anticipated Course of Care- Discussed, Nutrition/Weight Gain- Discussed, Toxoplasmosis Precautions- Discussed, Sexual Activity- Discussed, Exercise- Discussed, Environmental/Work Hazards- Discussed, Travel- Discussed, Tobacco- Discussed, Alcohol- Discussed, Recreational Drugs- Discussed, Medications/Supplements- Discussed, Indications for Ultrasound- Discussed, Domestic Violence- Discussed, Seat Belt Use- Discussed, Childbirth Classes- Discussed, Hospital Facilities- Discussed, New OB Packet- Given, SECOND TRIMESTER: S/S Labor- Discussed, Abnormal Lab Values- Discussed, Influenza Vaccine- Discussed, Selecting a Sales Incentive Analyst- Discussed, PP Family Planning/Sterilization- Discussed, THIRD TRIMESTER: Anesthesia/Analgesic Plans- Discussed, Movement Monitoring- Discussed, Labor Signs- Discussed, Counseling- Discussed, -Induced Hypertension- Discussed, Postterm Counseling- Discussed, Circumcision- Discussed, Breast or Bottle Feeding- Discussed, Depression- Discussed, [place] Car Seat- Discussed, Family Leave/Disability Forms- Discussed, PHYSICAL EXAM: Date: 04/08/16, Vitals: B/P - 114 / 58, Pre-Preg. Weight - 158 Constitutional well developed, well nourished HEENT.......... No drainage, ghassan and nasopharynx benign Teeth.......... Normal dentation Neck........... Thyroid not enlarged, no masses Breasts........ No dominant masses, nipple discharge or adenopathy bilaterally Lungs.......... Clear to ascultation bilaterally with normal rate and rhythm Heart.......... Regular rate and rhythm, no significant murmurs Abdomen........ Normal active bowel sounds, nondistended, nontender, no hepatosplenomegaly, no masses Extremities.... No cyanosis, clubbing, or altered range of motion Skin........... No rashes, lesions or ulcers Lymph Nodes.... No tenderness or enlargement in neck, axilla or groin Neurological... Alert, orientated x 3 Back........... No CVA tenderness Vulva.......... No external lesions, normal hair distribution Urethral metus. Urethral meatus pink, no lesions or discharge Urethra........ intact, no tenderness, masses, inflammation or discharge Bladder........ without tenderness, masses or incontinence Vagina......... normal Cervix......... [place], no lesions, odor or discharge Uterus......... Midline, nontender, firm and smooth Adnexa......... No adnexal masses, nodules or tenderness Pelvic Assessment.. adequate IMPRESSION: Polyhydroamnion with Adam=31 cm Previous CS Desiring cord blood collection PLAN: Repeat CS with CBR collection
--- OUTSIDE RECORDS SUMMARY | 2019-04-06 09:00 | XMS REPORT | CCD ---
Author Author Auto Generated Organization [facility] Address Unknown Phone Unavailable Care Team Providers Care Technical Business Analyst Name Role Phone Abhi Kearney CP Allergies, Adverse Reactions, Alerts Substance Reaction Status NKDA Ultram Canceled penicillins Active Ultram Active Problem List Condition Effective Dates Status Back pain Active Drug abuse Active Weakness Active Vital Signs Most recent to oldest [Reference Range]: 1 Height 170.18 cm (03/29/2012 19:17:00) Weight 68.182 kg (03/29/2012 19:17:00) Results URINALYSIS Most recent to oldest [Reference Range]: 1 UA Turbidity [Clear] Clear (03/29/2012 19:18:00) UA Color Ltyellow *NA* (03/29/2012 19:18:00) UA pH [5.0-8.0] 6.0 (03/29/2012 19:18:00) UA Spec Grav [<=1.030] 1.005 (03/29/2012 19:18:00) UA Glucose [Negative mg/dL] Negative mg/dL *NA* (03/29/2012 19:18:00) UA Blood [Negative] Negative (03/29/2012 19:18:00) UA Ketones [Negative mg/dL] Negative mg/dL *NA* (03/29/2012 19:18:00) UA Protein [Negative mg/dL] Negative mg/dL (03/29/2012 19:18:00) UA Urobilinogen [0.1-1.0 mg/dL] <=1.0 mg/dL *NA* (03/29/2012 19:18:00) UA Bili [Negative] Negative *NA* (03/29/2012 19:18:00) UA Leuk Est [Negative] Small *ABN* (03/29/2012 19:18:00) UA Nitrite [Negative] Negative (03/29/2012 19:18:00) UA WBC [0-5 /HPF] 7 /HPF *HI* (03/29/2012 19:18:00) UA Sq Epi [Few /LPF] Occasional /LPF *NA* (03/29/2012 19:18:00) CHEMISTRY Most recent to oldest [Reference Range]: 1 U Preg [Negative] Negative (03/29/2012 19:18:00)
--- OUTSIDE RECORDS SUMMARY | 2019-04-06 09:00 | XMS REPORT | CCD ---
Author Author Auto Generated Organization [facility] Address Unknown Phone Unavailable Care Team Providers Care General Warehouse Worker Name Role Phone Orly Schroeder CP ChartServer, Login CP Unavailable Violet Garber CP Unavailable Samantha Mac CP [phone] Karly Rossi CP Unavailable Dev Girard CP Unavailable Erikca Smith CP Unavailable Allergies, Adverse Reactions, Alerts Substance Reaction Status NKDA Ultram?? Canceled penicillins ?? Active Ultram ?? Active Problem List Condition Effective Dates Status Back pain ?? Active Drug abuse ?? Active Weakness ?? Active
--- OUTSIDE RECORDS SUMMARY | 2019-04-06 09:00 | XMS REPORT | CCD ---
Author Author Auto Generated Organization [facility] Address Unknown Phone Unavailable Care Team Providers Care Asbestos Worker Name Role Phone Orly Schroeder CP Brandon Monroe CP Unavailable Lacy, Enedina CP Unavailable Roxanne Olivarez CP Unavailable MarkoSuman condon CP Unavailable Violet Garber CP Unavailable Chevy Bullard CP Unavailable Samson Feldman CP Unavailable Logan Millan CP [phone] Samantha Mac CP [phone] Evan Jackson CP [phone] Salima Melchor CP Unavailable PCP, Pt doesnt [...]
--- OUTSIDE RECORDS SUMMARY | 2019-04-06 09:00 | XMS REPORT | CCD ---
Author Author Auto Generated Organization [facility] Address Unknown Phone Unavailable Care Team Providers Care Copyist Name Role Phone John Louie CP [phone] Orly Schroeder CP Dayron Brunner CP Unavailable Brandon Monroe CP Unavailable Lacy, Enedina CP Unavailable Dev Caballero CP [phone] Charly Olvera CP Unavailable GutierrezEvaristo CP [phone] Sharon Cooper CP Unavailable Roxanne Olivarez CP Unavailable MarkoSuman CP Unavailable Violet Garber CP Unavailable BullardChevy bundy CP Unavailable GutierrezMarco CP Unavailable SYSTEM, SYSTEM CP Unavailable Samantha Mac CP [phone] Zach Luevano CP Unavailable Arpit Fortune CP [...] based on the clinical recommendations of the [place] [employer]. 2Interpretive Data: Drugs reported as [...] More Organisms Present. Gram Positive Organisms Only. Eldred Count Not Sign ificant PRELIMINARY REPORTS Preliminary Report No Growth; Holding
--- OUTSIDE RECORDS SUMMARY | 2019-04-06 09:00 | XMS REPORT | CCD ---
Author Author Auto Generated Organization [facility] Address Unknown Phone Unavailable Care Team Providers Care Runner On Name Role Phone Dannielle Chen CP Allergies, Adverse Reactions, Alerts Substance Reaction Status NKDA Active Problem List Condition Effective Dates Status delivery - delivered 09/12/2013 Active care 09/12/2013 Active Medications Medication Instructions Start Date End Date Status Medrol Dosepak 4 mg 4 mg, Route: PO, Drug form: TAB, 09/14/2013 09/14/2013 Deleted Tablet QID-After Meals, Dosing Weight 88.182, kg, Start date: 09/14/13 13:00:00, Duration: 6 day, Stop date: 09/20/13 8:30:00 ephedrine 10 mg, 0.2 mL, Route: IVP, Drug 09/11/2013 09/12/2013 Discontinued form: INJ, ONCE, Dosing Weight 88.182, kg, Start date: 09/11/13 18:06:00, Stop date: 09/11/13 18:06:00(Same as: Ephedrine Sulfate) diphenhydrAMINE 12.5 mg, 5 mL, Route: PO, Drug 09/11/2013 09/12/2013 Discontinued form: LIQ, Q6H, Dosing Weight 88.182, kg, PRN Itching, Start date: 09/11/13 18:06:00, Duration: 30 day, Stop date: 10/11/13 18:05:00(Same as: Benadryl) FENTanyl Infuse via: [facility], Route: 09/11/2013 09/12/2013 Discontinued 4mcg/ml+Bupivacaine EPIDURAL, Start date: 09/11/13 0.167% Epidural 60 18:06:00 60 mL, Drug Form: INJ, mL Duration: 30 day, Stop date: 10/11/13 18:05:00(Same as: Sublimaze-Marcaine) Fentanyl 4 mcg/ml + bupivacaine 0.1667%. Medrol 4 mg, 1 tab, Route: PO, Drug form: 09/16/2013 09/14/2013 Deleted TAB, Bedtime, Start date: 09/16/13 21:00:00, Duration: 3 doses or times, Stop date: 09/16/13 21:00:00(Same as :Medrol) Take with food Medrol 4 mg, 1 tab, Route: PO, Drug form: 09/15/2013 09/14/2013 Deleted TAB, After Dinner, Start date: 09/15/13 17:00:00, Duration: 2 doses or times, Stop date: 09/15/13 17:00:00(Same as :Medrol) Take with food Medrol 4 mg, 1 tab, Route: PO, Drug form: 09/15/2013 09/14/2013 Deleted TAB, After Lunch, Start date: 09/15/13 12:30:00, Duration: 3 doses or times, Stop date: 09/16/13 12:30:00(Same as :Medrol) Take with food Medrol 4 mg, 1 tab, Route: PO, Drug form: 09/15/2013 09/14/2013 Deleted TAB, Before Breakfast, Start date: 09/15/13 7:30:00, Duration: 5 doses or times, Stop date: 10/19/13 7:30:00(Same as :Medrol) Take with food Medrol 8 mg, 2 tab, Route: PO, Drug form: 09/14/2013 09/14/2013 Deleted TAB, Bedtime, Start date: 09/14/13 21:00:00, Duration: 2 doses or times, Stop date: 10/15/13 21:00:00(Same as :Medrol) Take with food Medrol 8 mg, 2 tab, Route: PO, Drug form: 09/14/2013 09/14/2013 Deleted TAB, After Dinner, Start date: 09/14/13 17:00:00, Duration: 1 doses or times, Stop date: 10/14/13 17:00:00(Same as :Medrol) Take with food Medrol 8 mg, 2 tab, Route: PO, Drug form: 09/14/2013 09/14/2013 Deleted TAB, After Lunch, Start date: 09/14/13 12:30:00, Duration: 1 doses or times, Stop date: 10/14/13 12:30:00(Same as :Medrol) Take with food benzocaine-menthol 1 lozenge, Route: PO, Drug Form: 09/12/2013 09/15/2013 Discontinued topical IMER, Dosing Weight 88.182, kg, PRN, PRN Sore Throat, Start date: 09/12/13 18:59:00, Duration: 30 day, Stop date: 10/12/13 18:58:00Same as: Cepacol Sugar Free Lozenge lanolin topical 1 appl, Route: TOP, PRN, Drug form: 09/12/2013 09/15/2013 Discontinued cream OINT, PRN Other -See Comment, Start date: 09/12/13 18:59:00, Duration: 30 day, Stop date: 10/12/13 18:58:00(Same as:Lanolin) simethicone 160 mg, 2 tab, Route: PO, Drug 09/12/2013 09/15/2013 Discontinued form: CHEWTAB, Q8H, Dosing Weight 88.182, kg, PRN Gas, Start date: 09/12/13 18:59:00, Duration: 30 day, Stop date: 10/12/13 18:58:00(Same as: Mylicon) acetaminophen 650 mg, 2 tab, Route: PO, Drug 09/12/2013 09/15/2013 Discontinued form: TAB, Q4H, Dosing Weight 88.182, kg, PRN Other -See Comment, Start date: 09/12/13 18:59:00, Duration: 30 day, Stop date: 10/12/13 18:58:00Do not exceed 4 gm/day. (Same as: Tylenol) Lactated Ringers IV 1,000 mL, Rate: 100 ml/hr, Infuse 09/12/2013 09/15/2013 Discontinued 1,000 mL over: 10 hr, Route: IV, Dosing Weight 88.182 kg, Total Volume: 1,000, Start date: 09/12/13 18:59:00, Duration: 30 day, Stop date: 10/12/13 18:58:00 bisacodyl 10 mg, 1 supp, Route: NV, Drug 09/12/2013 09/15/2013 Discontinued form: SUPP, PRN, Dosing Weight 88.182, kg, PRN Other -See Comment, Start date: 09/12/13 18:59:00, Duration: 30 day, Stop date: 10/12/13 18:58:00(Same As: Dulcolax, Bisco-Lax) M-M-R II 0.5 mL, Route: SUB-Q, Drug Form: 09/12/2013 09/15/2013 Discontinued PDR/INJ, Dosing Weight 88.182, kg, ONCALL, Start date: 09/12/13 19:00:00, Duration: 1 doses or times(Same as: M-M-R II) (ouakfmn-zhkck-dsknrvk virus vaccine 0.5 ml INJ VL) GIVE PRIOR TO DISCHARGE zolpidem 5 mg, 1 tab, Route: PO, Drug form: 09/12/2013 09/15/2013 Discontinued TAB, Bedtime, Dosing Weight 88.182, kg, PRN Insomnia, Start date: 09/12/13 18:59:00, Duration: 30 day, Stop date: 10/12/13 18:58:00(Same As: Ambien) Lactated Ringers 20 unit, 1,000 mL, Rate: 125 ml/hr, 09/12/2013 09/14/2013 Completed 1000ml+Oxytocin 20 Infuse over: 8 hr, Dosing Weight units IV (Premix) 20 88.182, kg, Route: IV, Total unit Volume: 1,000 mL, Start date: 09/12/13 18:59:00, Duration: 2 day, Stop date: 09/14/13 18:58:00, Replace Every: 8 hrConc=0.02unit/ml=20milliunit/ml Lactated Ringers 20 unit, 1,000 mL, Rate: 125 ml/hr, 09/12/2013 09/14/2013 Completed 1000ml+Pitocin 20 Infuse over: 8 hr, Dosing Weight units IV (Premix) 20 88.182, kg, Route: IV, Total unit Volume: 1,000 mL, Start date: 09/12/13 18:59:00, Duration: 2 day, Stop date: 09/14/13 18:58:00, Replace Every: 8 hrConc=0.02unit/ml=20milliunit/ml ibuprofen 600 mg, 1 tab, Route: PO, Drug 09/12/2013 09/15/2013 Discontinued form: TAB, Q6H, Dosing Weight 88.182, kg, PRN Pain Score 1-5, Start date: 09/12/13 18:59:00, Duration: 30 day, Stop date: 10/12/13 18:58:00(Same as: Motrin)"Do Not Crush" Take with food. acetaminophen-hydroc 1 tab, Route: PO, Drug Form: TAB, 09/12/2013 09/15/2013 Discontinued odone 325 mg-5 mg Dosing Weight 88.182, kg, Q4H, PRN oral tablet Pain Score 1-3, Start date: 09/12/13 18:59:00, Duration: 30 day, Stop date: 10/12/13 18:58:00(Same as: [place] 325/5) Do not exceed 4gm/day of acetaminophen. ibuprofen 800 mg, 1 tab, Route: PO, Drug 09/12/2013 09/15/2013 Discontinued form: TAB, Q8H, Dosing Weight 88.182, kg, PRN Pain Score 6-10, Start date: 09/12/13 18:59:00, Duration: 30 day, Stop date: 10/12/13 18:58:00(Same as: Motrin)"Do Not Crush" Take with food. acetaminophen-hydroc 2 tab, Route: PO, Drug Form: TAB, 09/12/2013 09/15/2013 Discontinued odone 325 mg-5 mg Dosing Weight 88.182, kg, Q4H, PRN oral tablet Pain Score 4-6, Start date: 09/12/13 18:59:00, Duration: 30 day, Stop date: 10/12/13 18:58:00(Same as: [place] 325/5) Do not exceed 4gm/day of acetaminophen. 1 tab, Route: PO, Drug Form: TAB, 09/13/2013 09/15/2013 Discontinued Multivitamins oral Dosing Weight 88.182, kg, Daily, tablet Start date: 09/13/13 9:00:00, Duration: 30 day, Stop date: 10/12/13 9:00:00 butorphanol 1 mg, 1 mL, Route: IVP, Drug form: 09/10/2013 09/12/2013 Discontinued INJ, Q2H, Dosing Weight 63.636, kg, PRN Pain Score 1-5, Start date: 09/10/13 19:49:00, Duration: 30 day, Stop date: 10/10/13 19:48:00(Same As: Stadol) meperidine 50 mg, 1 mL, Route: IVP, Drug form: 09/10/2013 09/12/2013 Discontinued INJ, Q3H, Dosing Weight 63.636, kg, PRN Pain Score 6-10, Start date: 09/10/13 19:49:00, Duration: 48 hr, Stop date: 09/12/13 19:48:00(Same as: Demerol) "Use Precaution in Elderly, Seizure disorders, and Renal impairment" ibuprofen 800 mg, 1 tab, Route: PO, Drug 09/10/2013 09/12/2013 Discontinued form: TAB, Q8H, Dosing Weight 63.636, kg, PRN Other -See Comment, Start date: 09/10/13 19:49:00, Duration: 30 day, Stop date: 10/10/13 19:48:00(Same as: Motrin)"Do Not Crush" Take with food. acetaminophen-hydroc 2 tab, Route: PO, Drug Form: TAB, 09/10/2013 09/12/2013 Discontinued odone 325 mg-5 mg Dosing Weight 63.636, kg, Q4H, PRN oral tablet Pain Score 4-6, Start date: 09/10/13 19:49:00, Duration: 30 day, Stop date: 10/10/13 19:48:00(Same as: [place] 325/5) Do not exceed 4gm/day of acetaminophen. acetaminophen-hydroc 1 tab, Route: PO, Drug Form: TAB, 09/10/2013 09/12/2013 Discontinued odone 325 mg-5 mg Dosing Weight 63.636, kg, Q4H, PRN oral tablet Pain Score 1-3, Start date: 09/10/13 19:49:00, Duration: 30 day, Stop date: 10/10/13 19:48:00(Same as: [place] 325/5) Do not exceed 4gm/day of acetaminophen. ondansetron 4 mg, 2 mL, Route: IVP, Drug form: 09/10/2013 09/12/2013 Discontinued INJ, Q8H, Dosing Weight 63.636, kg, PRN Nausea & Vomiting, Start date: 09/10/13 19:49:00, Duration: 30 day, Stop date: 10/10/13 19:48:00(Same as: Zofran) lidocaine 1% 20 mL, Route: PERCUT, Drug Form: 09/10/2013 09/12/2013 Discontinued INJ, Dosing Weight 63.636, kg, PRN, PRN Other -See Comment, Start date: 09/10/13 19:49:00, Duration: 1 doses or times, Stop date: Limited # of timesPreservative free. (Same as: Xylocaine MPF) terbutaline 0.25 mg, 0.25 mL, Route: SUB-Q, 09/10/2013 09/12/2013 Discontinued Drug form: INJ, PRN, Dosing Weight 63.636, kg, PRN Other -See Comment, Start date: 09/10/13 19:49:00, Duration: 1 doses or times, Stop date: Limited # of timesDO NOT USE IN CHILD ADOLESCENT PSYCHIATRIST AREA(Same As: Brethine) misoprostol 1,000 microgram, 5 tab, Route: NV, 09/10/2013 09/12/2013 Discontinued Drug form: TAB, ONCALL, Dosing Weight 63.636, kg, Start date: 09/10/13 20:00:00, Duration: 1 doses or times(Same as:Cytotec) Take with food oxytocin-add to 20 unit, 2 mL, Route: INJ, Drug 09/10/2013 09/12/2013 Discontinued current IV form: SOLN, ONCALL, Dosing Weight 63.636, kg, Start date: 09/10/13 20:00:00, Duration: 2 day, Stop date: 09/12/13 19:59:00(Same as: Pitocin) citric acid-sodium 30 mL, Route: PO, Drug Form: SOLN, 09/10/2013 09/12/2013 Discontinued citrate Dosing Weight 63.636, kg, ONCALL, Start date: 09/10/13 20:00:00, Duration: 30 day, Stop date: 10/10/13 19:59:00(Same As: Bicitra, Cytra-2) Sodium citrate-citric acid (500-334 mg/5 mL): 1 mL contains sodium 1 mEq/mL and bicarbonate 1 mEq/mL famotidine 20 mg, 2 mL, Route: IVP, Drug form: 09/10/2013 09/12/2013 Discontinued INJ, ONCALL, Dosing Weight 63.636, kg, Start date: 09/10/13 20:00:00, Duration: 30 day, Stop date: 10/10/13 19:59:00(Same as: Pepcid)Can be dilute in 5-10cc NS IVP: Slow IV push over at least 2 minutes. Lactated Ringers 1,000 mL, Rate: 100 ml/hr, Infuse 09/10/2013 09/12/2013 Discontinued Injection IV 1,000 over: 10 hr, Route: IV, Dosing mL Weight 63.636 kg, Total Volume: 1,000, Bolus for regional anesthesia per unit protocol, Start date: 09/10/13 19:49:00, Duration: 30 day, Stop date: 10/10/13 19:48:00 lidocaine 1% 0.25 mL, Route: INTRADERM, Drug 09/10/2013 09/12/2013 Discontinued injectable solution Form: INJ, Dosing Weight 63.636, kg, ONCE, Start date: 09/10/13 19:49:00, Stop date: 09/10/13 19:49:00Preservative free. (Same as: Xylocaine MPF) Lactated Ringers 20 unit, 1,000 mL, Rate: 125 ml/hr, 09/10/2013 09/12/2013 Discontinued 1000ml+Pitocin 20 Infuse over: 8 hr, Dosing Weight units IV (Premix) 20 63.636, kg, Route: IV, Total unit Volume: 1,000 mL, Start date: 09/10/13 19:49:00, Duration: 2 day, Stop date: 09/12/13 19:48:00, Replace Every: 8 hrConc=0.02unit/ml=20milliunit/ml Dextrose 5% in 1,000 mL, Rate: 125 ml/hr, Infuse 09/10/2013 09/12/2013 Discontinued Lactated Ringers IV over: 8 hr, Route: IV, Dosing 1,000 mL Weight 63.636 kg, Total Volume: 1,000, Start date: 09/10/13 19:49:00, Duration: 30 day, Stop date: 10/10/13 19:48:00 Percocet 5/325 oral 2 tab, Route: PO, Drug Form: TAB, 09/12/2013 09/15/2013 Discontinued tablet Dosing Weight 88.182, kg, Q6H, PRN Pain Score 6-10, Start date: 09/12/13 19:25:00, Duration: 30 day, Stop date: 10/12/13 19:24:00Do not exceed 4gm/day of acetaminophen. (Same as: Percocet-5/325) Percocet 5/325 oral 1 tab, Route: PO, Drug Form: TAB, 09/12/2013 09/15/2013 Discontinued tablet Dosing Weight 88.182, kg, Q4H, PRN Pain Score 1-5, Start date: 09/12/13 19:25:00, Duration: 30 day, Stop date: 10/12/13 19:24:00Do not exceed 4gm/day of acetaminophen. (Same as: Percocet-5/325) Periactin 4 mg, 1 tab, Route: PO, Drug form: 09/12/2013 09/15/2013 Discontinued TAB, TID, Dosing Weight 88.182, kg, PRN Itching, Start date: 09/12/13 19:25:00, Duration: 30 day, Stop date: 10/12/13 19:24:00(Same As: Periactin) promethazine + 6.25 mg, 0.25 mL, Route: IVPB, Q6H, 09/12/2013 09/13/2013 Completed Sodium Chloride 0.9% Dosing Weight 88.182, kg, PRN IV 50 mL Nausea & Vomiting, Start date: 09/12/13 19:25:00, Duration: 24 hr, Stop date: 09/13/13 19:24:00Do not give IV push. (Same as: Phenergan) ondansetron 4 mg, 2 mL, Route: IVP, Drug form: 09/12/2013 09/13/2013 Completed INJ, Q6H, Dosing Weight 88.182, kg, PRN Nausea & Vomiting, Start date: 09/12/13 19:25:00, Duration: 24 hr, Stop date: 09/13/13 19:24:00(Same as: Zofran) naloxone 0.4 mg, 1 mL, Route: IVP, Drug 09/12/2013 09/15/2013 Discontinued form: INJ, ONCALL, Dosing Weight 88.182, kg, Start date: 09/12/13 20:00:00, Duration: 24 hr, Stop date: 09/13/13 19:59:00Same as Narcan acetaminophen 1,000 mg, 100 mL, Route: IVPB, Drug 09/12/2013 09/13/2013 Completed form: INJ, Q6H, Dosing Weight 88.182, kg, PRN Pain Score 6-10, Priority: NOW, Start date: 09/12/13 19:25:00, Duration: 24 hr, Stop date: 09/13/13 19:24:00Infuse over 15 minutes Do not exceed 4gm/day of acetaminophen ketorolac 30 mg, 1 mL, Route: IVP, Drug form: 09/12/2013 09/13/2013 Completed INJ, Q6H, Dosing Weight 88.182, kg, PRN Pain Score 4-6, Start date: 09/12/13 19:25:00, Duration: 24 hr, Stop date: 09/13/13 19:24:00(Same as:Toradol) IV bolus must be given >15 seconds. Give IM administration slowly and deeply into the muscle. Not for use > 4 days naloxone 0.4 mg + 1,000 mL, Rate: 17 microgram/hr, 09/12/2013 09/12/2013 Discontinued Sodium Chloride 0.9% Route: IV, Dosing Weight 88.182 kg, IV 1,000 mL Total Volume: 1,001 mL, PRN itching, Start date: 09/12/13 19:25:00, Duration: 30 day, Stop date: 10/12/13 19:24:00 ondansetron 4 mg, 2 mL, Route: IVP, Drug form: 09/12/2013 09/12/2013 Discontinued INJ, ONCE, Dosing Weight 88.182, kg, PRN Nausea & Vomiting, Start date: 09/12/13 19:25:00(Same as: Zofran) diphenhydrAMINE 12.5 mg, 0.25 mL, Route: IVP, Drug 09/12/2013 09/12/2013 Discontinued form: INJ, Q6H, Dosing Weight 88.182, kg, PRN Itching, Start date: 09/12/13 19:25:00, Duration: 30 day, Stop date: 10/12/13 19:24:00(Same as: Benadryl) ephedrine 5 mg, 0.1 mL, Route: IVP, Drug 09/12/2013 09/12/2013 Discontinued form: INJ, Q5Min, Dosing Weight 88.182, kg, PRN Low Blood Pressure, Start date: 09/12/13 19:25:00, Duration: 30 day, Stop date: 10/12/13 19:24:00(Same as: Ephedrine Sulfate) acetaminophen 1,000 mg, 100 mL, Route: IVPB, Drug 09/12/2013 09/12/2013 Discontinued form: INJ, ONCE, Dosing Weight 88.182, kg, PRN Pain Score 1-3, Start date: 09/12/13 19:25:00, Duration: 1 doses or times, Stop date: Limited # of timesInfuse over 15 minutes Do not exceed 4gm/day of acetaminophen flumazenil 0.2 mg, 2 mL, Route: IVP, Drug 09/12/2013 09/12/2013 Discontinued form: INJ, PRN, Dosing Weight 88.182, kg, PRN Benzodiazepine Reversal, Initial dose, Start date: 09/12/13 19:25:00, Duration: 30 day, Stop date: 10/12/13 19:24:00(Same as: Romazicon) ketorolac 30 mg, 1 mL, Route: IVP, Drug form: 09/12/2013 09/12/2013 Discontinued INJ, ONCE, Dosing Weight 88.182, kg, Start date: 09/12/13 19:25:00, Duration: 1 doses or times, Stop date: 09/12/13 19:25:00(Same as:Toradol) IV bolus must be given >15 seconds. Give IM administration slowly and deeply into the muscle. Not for use > 4 days naloxone 0.04 mg, 0.1 mL, Route: IVP, Drug 09/12/2013 09/12/2013 Discontinued form: INJ, Q2MIN, Dosing Weight 88.182, kg, PRN Narcotic Reversal, Start date: 09/12/13 19:25:00, Duration: 8 doses or times, Stop date: Limited # of timesSame as Narcan Medrol 4 mg, 1 tab, Route: PO, Drug form: 09/16/2013 09/15/2013 Canceled TAB, Bedtime, Start date: 09/16/13 21:00:00, Duration: 3 doses or times, Stop date: 09/18/13 21:00:00(Same as :Medrol) Take with food Medrol 4 mg, 1 tab, Route: PO, Drug form: 09/15/2013 09/15/2013 Canceled TAB, After Dinner, Start date: 09/15/13 17:00:00, Duration: 2 doses or times, Stop date: 09/16/13 17:00:00(Same as :Medrol) Take with food hydrocortisone 1 appl, Route: TOP, BID, Drug form: 09/13/2013 09/15/2013 Discontinued topical 1% cream CRM, PRN Rash, Start date: 09/13/13 12:55:00, Duration: 30 day, Stop date: 10/13/13 12:54:00 Medrol 4 mg, 1 tab, Route: PO, Drug form: 09/15/2013 09/15/2013 Discontinued TAB, After Lunch, Start date: 09/15/13 12:30:00, Duration: 3 doses or times, Stop date: 09/17/13 12:30:00(Same as :Medrol) Take with food acetaminophen-hydroc 1 tab, PO, Q4H, PRN, 30 tab, for 09/12/2013 Ordered odone 325 mg-7.5 mg pain, Substitution Allowed, oral tablet Maintenance, TAB Hemocyte-F oral See Instructions, tab PO twice a 09/12/2013 Ordered tablet day, 60 tab, Substitution Allowed, Maintenance tab PO twice a day Medrol 4 mg, 1 tab, Route: PO, Drug form: 09/15/2013 09/15/2013 Discontinued TAB, Before Breakfast, Start date: 09/15/13 7:30:00, Duration: 5 doses or times, Stop date: 09/19/13 7:30:00(Same as :Medrol) Take with food Motrin 800 mg oral 800 mg, 1 tab, PO, Q8H, PRN, Take 09/12/2013 Ordered tablet with food, 30 tab, Pain, Substitution Allowed Take with food Medrol 8 mg, 2 tab, Route: PO, Drug form: 09/14/2013 09/15/2013 Discontinued TAB, Bedtime, Start date: 09/14/13 21:00:00, Duration: 2 doses or times, Stop date: 09/15/13 21:00:00(Same as :Medrol) Take with food Medrol 8 mg, 2 tab, Route: PO, Drug form: 09/14/2013 09/14/2013 Completed TAB, After Dinner, Start date: 09/14/13 17:00:00, Duration: 1 doses or times, Stop date: 09/14/13 17:00:00(Same as :Medrol) Take with food Cytotec 25 microgram, 1 ea, Route: VAG, 09/10/2013 09/11/2013 Discontinued Drug form: TAB, Q3H, Dosing Weight 88.182, kg, Start date: 09/10/13 21:05:00, Duration: 30 day, Stop date: 10/10/13 21:00:00(Same as:Cytotec) Take with food 25 microgram=1/4 tab of 100 microgram. Medrol 8 mg, 2 tab, Route: PO, Drug form: 09/14/2013 09/14/2013 Completed TAB, After Lunch, Start date: 09/14/13 12:30:00, Duration: 1 doses or times, Stop date: 09/14/13 12:30:00(Same as :Medrol) Take with food Lactated Ringers 20 unit, 1,000 mL, Rate: Titrate, 09/12/2013 09/12/2013 Discontinued 1000ml+Pitocin 20 Dosing Weight 88.182, kg, Route: units IV (Premix IV, Total Volume: 1,000 mL, Start Titrate) 20 unit date: 09/12/13 3:32:00, Duration: 2 day, Stop date: 09/14/13 3:31:00, Replace Every: 24 hrConc=0.02unit/ml=20milliunit/ml Medrol Dosepak 4 mg As directed on package 09/15/2013 09/21/2013 Ordered Tablet instructions, PO, Daily, Take with or without food, 1 Pack, Substitution Allowed Take with or without food hydrocortisone 1 appl, TOP, BID, 30 gm, 09/15/2013 Ordered topical 1% cream Substitution Allowed, apply a thin layer to the affected area apply a thin layer to the affected area 1 Plus 1 Substitution Allowed, Maintenance 09/10/2013 Ordered oral tablet Cervidil 10 mg, 1 supp, Route: VAG, Drug 09/11/2013 09/12/2013 Discontinued form: INS, ONCE, Dosing Weight 88.182, kg, Start date: 09/11/13 20:51:00, Duration: 1 doses or times, Stop date: 09/11/13 20:51:00(Same as: Cervidil) Vital Signs Most recent to oldest [Reference Range]: 1 2 3 Height 154.94 cm (09/10/2013 19:49:00) Temperature Oral [96.4-99.1 DegF] 98.5 DegF (09/15/2013 07:57:00) 98.1 DegF (09/14/2013 20:00:00) 97.8 DegF (09/14/2013 07:10:00) Systolic Blood Pressure [90-140 mmHg] 110 mmHg (09/15/2013 07:57:00) 118 mmHg (09/14/2013 20:00:00) 115 mmHg (09/14/2013 07:10:00) Diastolic Blood Pressure [60-90 mmHg] 66 mmHg (09/15/2013 07:57:00) 72 mmHg (09/14/2013 20:00:00) 69 mmHg (09/14/2013 07:10:00) Respiratory Rate [14-20 BRMIN] 16 BRMIN (09/15/2013 07:57:00) 18 BRMIN (09/14/2013 20:00:00) 16 BRMIN (09/14/2013 07:10:00) Peripheral Pulse Rate [60-100 bpm] 73 bpm (09/15/2013 07:57:00) 84 bpm (09/14/2013 20:00:00) 76 bpm (09/14/2013 07:10:00) Weight 88.182 kg (09/10/2013 19:49:00) Results BLOOD BANK RESULTS Most recent to oldest [Reference Range]: 1 2 3 ABO/Rh A POS *Unknown* (09/10/2013 20:20:00) Antibody Scrn Negative (09/10/2013 20:20:00) Rhig Reqd See Note 1 (09/10/2013 20:20:00) 1Result Comment: 09/10/2013 22:41 [id number] This patient is not a candidate for Rh(O)D immune globulin. CHEMISTRY Most recent to oldest [Reference Range]: 1 2 3 Sodium Lvl [135-145 mEq/L] 144 mEq/L (09/14/2013 12:54:00) Potassium Lvl [3.5-5.1 mEq/L] 4.1 mEq/L (09/14/2013 12:54:00) Chloride Lvl [95-109 mEq/L] 107 mEq/L (09/14/2013 12:54:00) CO2 [24-32 mEq/L] 28 mEq/L (09/14/2013 12:54:00) AGAP [10.0-20.0 mEq/L] 13.1 mEq/L (09/14/2013 12:54:00) Creatinine Lvl [0.5-1.4 mg/dL] 0.8 mg/dL (09/14/2013 12:54:00) eGFR 100 mL/min/1.73m2 2 *NA* (09/14/2013 12:54:00) BUN [7-22 mg/dL] 15 mg/dL (09/14/2013 12:54:00) B/C Ratio [6-25] 19 (09/14/2013 12:54:00) Glucose Lvl [70-99 mg/dL] 97 mg/dL 3 (09/14/2013 12:54:00) Total Protein [6.4-8.4 g/dL] 6.0 g/dL *LOW* (09/14/2013 12:54:00) Albumin Lvl [3.5-5.0 g/dL] 2.1 g/dL *LOW* (09/14/2013 12:54:00) Globulin [2.0-4.0 g/dL] 3.9 g/dL (09/14/2013 12:54:00) A/G Ratio [0.7-1.6] 0.5 *LOW* (09/14/2013 12:54:00) Calcium Lvl [8.5-10.5 mg/dL] 8.8 mg/dL (09/14/2013 12:54:00) ALT [0-65 unit/L] 18 unit/L (09/14/2013 12:54:00) AST [0-37 unit/L] 18 unit/L (09/14/2013 12:54:00) Alk Phos [39-136 unit/L] 188 unit/L *HI* (09/14/2013 12:54:00) Bili Total [0.2-1.3 mg/dL] 0.3 mg/dL (09/14/2013 12:54:00) 2Result Comment: The eGFR is calculated using [...] be mul tiplied by the estimated BMI. 3Interpretive Data: Adult reference range values reflect the clinical guidelines of the [place] [employer]. HEMATOLOGY Most recent to oldest [Reference Range]: 1 2 3 WBC [3.7-10.4 K/CMM] 11.9 K/CMM *HI* (09/14/2013 12:54:00) 10.0 K/CMM (09/10/2013 20:20:00) RBC [4.20-5.40 M/CMM] 3.99 M/CMM *LOW* (09/14/2013:54:00) 4.36 M/CMM (09/10/2013 20:20:00) Hgb [12.0-16.0 g/dL] 11.8 g/dL *LOW* (09/14/2013 12:54:00) 11.3 g/dL *LOW* (09/13/2013 05:46:00) 12.7 g/dL (09/10/2013 20:20:00) Hct [36.0-48.0 %] 35.3 % *LOW* (09/14/2013 12:54:00) 34.0 % *LOW* (09/13/2013 05:46:00) 38.0 % (09/10/2013 20:20:00) MCV [81.0-99.0 fL] 88.4 fL (09/14/2013 12:54:00) 87.2 fL (09/10/2013 20:20:00) MCH [27.0-31.0 pg] 29.6 pg (09/14/2013 12:54:00) 29.1 pg (09/10/2013 20:20:00) MCHC [32.0-36.0 g/dL] 33.5 g/dL (09/14/2013 12:54:00) 33.4 g/dL (09/10/2013 20:20:00) RDW [11.5-14.5 %] 15.7 % *HI* (09/14/2013 12:54:00) 15.6 % *HI* (09/10/2013 20:20:00) Platelet [133-450 K/CMM] 224 K/CMM (09/14/2013 12:54:00) 236 K/CMM (09/10/2013 20:20:00) MPV [7.4-10.4 fL] 8.8 fL (09/14/2013 12:54:00) 10.1 fL (09/10/2013 20:20:00) Segs [45.0-75.0 %] 80.1 % *HI* (09/14/2013 12:54:00) 75.1 % *HI* (09/10/2013 20:20:00) Lymphocytes [20.0-40.0 %] 11.6 % *LOW* (09/14/2013 12:54:00) 17.5 % *LOW* (09/10/2013 20:20:00) Monocytes [2.0-12.0 %] 5.2 % (09/14/2013 12:54:00) 6.1 % (09/10/2013 20:20:00) Eosinophils [0.0-4.0 %] 2.7 % (09/14/2013 12:54:00) 1.0 % (09/10/2013 20:20:00) Basophils [0.0-1.0 %] 0.4 % (09/14/2013 12:54:00) 0.3 % (09/10/2013 20:20:00) Segs-Bands # [1.5-8.1 K/CMM] 9.5 K/CMM *HI* (09/14/2013 12:54:00) 7.5 K/CMM (09/10/2013 20:20:00) Lymphocytes # [1.0-5.5 K/CMM] 1.4 K/CMM (09/14/2013 12:54:00) 1.8 K/CMM (09/10/2013 20:20:00) Monocytes # [0.0-0.8 K/CMM] 0.6 K/CMM (09/14/2013 12:54:00) 0.6 K/CMM (09/10/2013 20:20:00) Eosinophils # [0.0-0.5 K/CMM] 0.3 K/CMM (09/14/2013 12:54:00) 0.1 K/CMM (09/10/2013 20:20:00) Basophils # [0.0-0.2 K/CMM] 0.0 K/CMM (09/14/2013 12:54:00) 0.0 K/CMM (09/10/2013 20:20:00) RBC Morph Normal (09/14/2013 12:54:00) Plt Morph Normal (09/14/2013 12:54:00) IMMUNOLOGY Most recent to oldest [Reference Range]: 1 2 3 Treponemal Scr [Non Reactive] Non Reactive *NA* (09/10/2013 20:20:00) HIV. [Negative] Negative *NA* (09/10/2013 20:20:00) Hep Bs Ag [Negative] Negative *NA* (09/10/2013 20:20:00)
--- OUTSIDE RECORDS SUMMARY | 2019-04-06 09:00 | XMS REPORT | Summary of Care ---
Author Organization Unknown Address Unknown Phone Unavailable Encounter ADEBAYO Spencer(FLORECITA) [id number] Date(s): 02/19/15 - 02/19/[address] [address]- Discharge Diagnosis: Anxiety reaction Discharge Diagnosis: Acute hyperventilation syndrome Discharge Disposition: Home Physician Attending: Reji Agudelo DO Vital Signs Most recent to 1 2 oldest [Reference Range]: Height 167.64 cm (02/19/15 3:59 PM) Temperature Oral 98.6 DegF 98.2 DegF [96.4-99.1 DegF] (02/19/15 8:13 PM) (02/19/15 3:59 PM) Blood Pressure 145/90 mmHg 151/92 mmHg [90-140/60-90 mmHg] *HI* *HI* (02/19/15 8:13 PM) (02/19/15 3:59 PM) Respiratory Rate 18 BRMIN 16 BRMIN [14-20 BRMIN] (02/19/15 8:13 PM) (02/19/15 3:59 PM) Peripheral Pulse 78 bpm 70 bpm Rate [60-100 bpm] (02/19/15 8:13 PM) (02/19/15 3:59 PM) Weight 75 kg (02/19/15 3:59 PM) Body Mass Index 26.69 m2 (02/19/15 3:59 PM) Problem List Condition Effective Dates Status Health Status Informant Back pain(Confirmed) Active Drug Active abuse(Confirmed) Weakness(Confirmed) Active Allergies, Adverse Reactions, Alerts Substance Reaction Severity Status penicillins Active Ultram Active Medications KlonoPIN 2 mg oral tablet 2 mg=1 tab, PO, BID, # 6 tab, 0 Refill(s) Start Date: 02/19/15 Status: Ordered Results ELECTROLYTES Most recent to 1 oldest [Reference Range]: Sodium Lvl [135-145 139 mEq/L mEq/L] (02/19/15 4:23 PM) Potassium Lvl 3.6 mEq/L [3.5-5.1 mEq/L] (02/19/15 4:23 PM) Chloride Lvl [95-109 106 mEq/L mEq/L] (02/19/15 4:23 PM) CO2 [24-32 mEq/L] 25 mEq/L (02/19/15 4:23 PM) AGAP [10.0-20.0 11.6 mEq/L mEq/L] (02/19/15:23 PM) CHEM PANEL Most recent to 1 oldest [Reference Range]: Creatinine Lvl 0.8 mg/dL [0.5-1.4 mg/dL] (02/19/15:23 PM) eGFR 93 mL/min/1.73m2 1 *NA* (02/19/15:23 PM) BUN [7-22 mg/dL] 12 mg/dL (02/19/15 4:23 PM) B/C Ratio [6-25] 15 (02/19/15:23 PM) Glucose Lvl [70-99 104 mg/dL 2 mg/dL] *HI* (02/19/15 4:23 PM) Total Protein 8.2 g/dL [6.4-8.4 g/dL] (02/19/15:23 PM) Albumin Lvl [3.5-5.0 4.4 g/dL g/dL] (02/19/15 4:23 PM) Globulin [2.0-4.0 3.8 g/dL g/dL] (02/19/15 4:23 PM) A/G Ratio [0.7-1.6] 1.2 (02/19/15 4:23 PM) Calcium Lvl 8.5 mg/dL [8.5-10.5 mg/dL] (02/19/15:23 PM) ALT [0-65 unit/L] 26 unit/L (02/19/15 4:23 PM) AST [0-37 unit/L] 16 unit/L (02/19/15 4:23 PM) Alk Phos [39-136 66 unit/L unit/L] (02/19/15 4:23 PM) Bili Total [0.2-1.3 0.3 mg/dL mg/dL] (02/19/15 4:23 PM) 1Result Comment: The eGFR is calculated [...] be mul tiplied by the estimated BMI. 2Interpretive Data: Adult reference range values reflect the clinical guidelines of the [place] [employer]. CARDIAC ENZYMES Most recent to 1 oldest [Reference Range]: Total CK [12-191 55 unit/L unit/L] (02/19/15 4:23 PM) CK MB [0.5-3.6 <0.5 ng/mL ng/mL] (02/19/15 4:23 PM) CK MB Index <0.9 [0.0-2.5] (02/19/15 4:23 PM) Troponin-I <0.02 ng/mL [0.00-0.40 ng/mL] (02/19/15 4:23 PM) DRUG SCREEN Most recent to 1 oldest [Reference Range]: U Amph Scr Negative [Negative] *NA* (02/19/15 4:23 PM) U Shannon Scr Negative [Negative] *NA* (02/19/15 4:23 PM) U Benzodia Scr Negative [Negative] *NA* (02/19/15 4:23 PM) U Cocaine Scr Negative [Negative] *NA* (02/19/15 4:23 PM) U Opiate Scr Negative [Negative] *NA* (02/19/15 4:23 PM) U Phencyc Scr Negative [Negative] *NA* (02/19/15 4:23 PM) U Cannab Scr Negative [Negative] *NA* (02/19/15 4:23 PM) UDS Note See Note 3 *NA* (02/19/15 4:23 PM) 3Interpretive Data: Drugs reported as positive have [...] Methadone 300 ng/mL Urine alcohol 20 mg/dL HEMATOLOGY Most recent to 1 oldest [Reference Range]: WBC [3.7-10.4 K/CMM] 12.1 K/CMM *HI* (02/19/15 4:23 PM) RBC [4.20-5.40 4.30 M/CMM M/CMM] (02/19/15 4:23 PM) Hgb [12.0-16.0 g/dL] 12.5 g/dL (02/19/15 4:23 PM) Hct [36.0-48.0 %] 37.2 % (02/19/15 4:23 PM) MCV [80.0-98.0 fL] 86.5 fL (02/19/15 4:23 PM) MCH [27.0-31.0 pg] 29.2 pg (02/19/15 4:23 PM) MCHC [32.0-36.0 33.7 g/dL g/dL] (02/19/15 4:23 PM) RDW [11.5-14.5 %] 14.5 % (02/19/15 4:23 PM) Platelet [133-450 273 K/CMM K/CMM] (02/19/15 4:23 PM) MPV [7.4-10.4 fL] 8.9 fL (02/19/15 4:23 PM) Segs [45.0-75.0 %] 86.6 % *HI* (02/19/15 4:23 PM) Lymphocytes 10.2 % [20.0-40.0 %] *LOW* (02/19/15 4:23 PM) Monocytes [2.0-12.0 2.9 % %] (02/19/15 4:23 PM) Eosinophils [0.0-4.0 0.1 % %] (02/19/15 4:23 PM) Basophils [0.0-1.0 0.2 % %] (02/19/15 4:23 PM) Segs-Bands # 10.5 K/CMM [1.5-8.1 K/CMM] *HI* (02/19/15 4:23 PM) Lymphocytes # 1.2 K/CMM [1.0-5.5 K/CMM] (02/19/15 4:23 PM) Monocytes # [0.0-0.8 0.4 K/CMM K/CMM] (02/19/15 4:23 PM) Eosinophils # 0.0 K/CMM [0.0-0.5 K/CMM] (02/19/15 4:23 PM) Basophils # [0.0-0.2 0.0 K/CMM K/CMM] (02/19/15 4:23 PM) Immunizations No data available for this section Procedures No data available for this section Social History Social History Type Response Assessment and Plan No data available for this section
--- OUTSIDE RECORDS SUMMARY | 2019-04-06 09:01 | XMS REPORT ---
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 shift. at 1219 Reported and signed by: Alessandro aguillon M.D. CC: Julio C Orourke MD Technologist:EVARISTO DAVISON RT(R)(CT) CTDI: 68.05 DLP: 1104 [facility] Date/Time: 10/31/2014 (1219) [email or web address] Orig Print D/T: S: 10/31/2014 (1222) CTDI: 68.05 DLP: 1104 PAGE 1 Signed Report CHEST 2 VIEWS [place] [address] Patient Name: GABINO KING MR #: [id number] : 1975 Age/Sex: 42/F Req #: [id number] Adm Physician: Ordered by: SHANE BROOKS [employer] Report #: [id number] Location: ER Room/Bed: Procedure: [id number] DX/CHEST 2 VIEWS Exam Date : 08/11/17 Exam Time: 1300 REPORT STATUS: Kate d PROCEDURE: Frontal and lateral views of the chest. COMPARISON: None . INDICATIONS: LEFT SIDED FLANK PAIN FINDINGS: Lines/tubes: None. Lungs: The lungs are well inflated and clear. There is no evidence of pneumonia or pulmonary edema. Pleura: There is no pleural effusion or pneumothorax. Heart and mediastinum: The heart and the mediastinum are normal. Bones: No acute bony abnormality. IMPRESSION: No a cute cardiopulmonary disease. Dictated by: Saleem Patel M.D. on 08/11/2017 at 13:24 Electronically approved by: Saleem Patel M.D. on 08/11/2017 at 13:24 Dictated By: SALEEM PATEL MD 1324 Transcribed By: WINSTON on 08/11/17 1324 COPY TO: Maddy BROOKS NP
--- NOTE | 2019-04-06 12:28 | Operative Report ---
DATE OF PROCEDURE: 04/06/2019 SURGEON: Juanpablo Dos Santos MD PREOPERATIVE DIAGNOSIS: Mass of the posterior shoulder. 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 OPERATION PERFORMED: Excision of intramuscular mass of right posterior shoulder. ANESTHESIA: General. COMPLICATIONS: None. ESTIMATED BLOOD LOSS: Minimal. DESCRIPTION OF PROCEDURE: With the patient lying in bed in the lateral position under good general anesthesia, the back and right shoulder were prepped with Betadine solution and draped in the usual manner. The area overlying the mass was then infiltrated with 0.25% Marcaine with epinephrine. An incision was made above the mass, deepened down through the subcutaneous tissue and through the superficial fascia and immediately an encapsulated multilobulated mass was encountered. The deep aspects of the mass were actually going through the muscle and they were submuscular. Mass was slowly and carefully from all of the structures and from the muscle and totally and completely removed and sent for pathological examination. The mass was about 10 x 8 cm in size. The whole area was then thoroughly irrigated. Perfect hemostasis was ascertained. The deep tissues were reapproximated with interrupted sutures of 3-0 Vicryl. The subcutaneous tissue was approximated with 3-0 Vicryl and the skin was closed with interrupted vertical mattress sutures of 3-0 silk. A dressing was applied. The sponge, lap, and needle count was correct. The patient tolerated the procedure well and returned to the recovery room in stable condition. Juanpablo Dos Santos MD JLR/MODL /[id number]
[2019-04-06 13:15] VITALS: BP 131/90
== END | disposition home or self-care (01) ==
LOC: OR 08:50
PROVIDERS: ATTEND Surgery
DX: D17.9 Benign lipomatous neoplasm, unspecified (principal); F43.10 Post-traumatic stress disorder, unspecified; R42 Dizziness and giddiness; F32.9 Major depressive disorder, single episode, unspecified; F41.9 Anxiety disorder, unspecified; Z88.6 Allergy status to analgesic agent; Z01.810 Encounter for preprocedural cardiovascular examination; Z01.812 Encounter for preprocedural laboratory examination; Z86.73 Personal history of transient ischemic attack (TIA), and cerebral infarction without residual deficits
CPT/HCPCS: 23073; 36415; 80048; 81025; 85025; 88304; 93005; J1100; J1170; J2001; J2250; J2405; J2704